=== PATIENT | female | born 1980 | race Caucasian/White ===

== ENCOUNTER 2018-01-22 07:30 | Inpatient (IN) | payer BC ==
--- NOTE | 2018-01-21 16:45 | Pre-op HX & Phy Repo 2 SIG ---
DATE OF ADMISSION: 01/22/2018 HISTORY OF PRESENT ILLNESS: The patient is a 37-year-old female in overall good health with a severely malfunctioning ileostomy. The patient developed ulcerative colitis in 2000 while 6 months . In January 2009 she underwent total colectomy with creation of an ileoanal J-pouch with temporary loop ileostomy. This was associated with transient urinary retention. The patient developed a presacral abscess, stricture at the anus, fistula, cuffitis, and required incision and drainage of a buttock abscess. In August 2009 she underwent surgery with resection of her failed J-pouch with abdominoperineal proctectomy and creation of a April ileostomy. There was no evidence of Crohn's disease. Since creation of the ileostomy the patient has had significant difficulty. She must change her appliance frequently. She has recurring episodes of leakage with very excoriated skin with every appliance change. She wakes every night to manage and deal with her ileostomy appliance. She has not had any improvement working with enterostomal therapy/WOCN and trying many different appliances. She is scheduled to undergo surgery to convert her malfunctioning conventional ileostomy to a Ramos continent intestinal reservoir continent ileostomy. PAST MEDICAL HISTORY: MEDICATIONS: Metoprolol 25 mg, Prozac 30 mg, Phenergan rarely p.r.n. nausea, and Imodium 2 times a week when she is very active. ALLERGIES: Penicillin and erythromycin cause hives. OPERATIONS: In addition to the above, she underwent cholecystectomy in January 2017 through an open right upper quadrant incision and in 2007 underwent breast augmentation. REVIEW OF SYSTEMS: She is 2, para 2. She must straight catheterize her bladder 1 to 2 times a day. Formerly with her urinary retention from surgery in 2008 she had to catheterize all day long, but she does void as well, but does need the 1 to 2 times a day straight catheterization to fully empty her bladder. She has had recurrent UTIs. PHYSICAL EXAMINATION: GENERAL: The patient is 5 feet 4 inches and 125 pounds. [place] and will be examined upon arrival and dictated separately. IMPRESSION: 1. Malfunctioning April ileostomy. 2. History of ulcerative colitis. 3. History of neurogenic bladder requiring self-catheterization 1-2x daily 4. Status post multiple abdominal operations. 4.1. Total colectomy with ileoanal J-pouch with ileostomy in January 2009 4.2. Resection of failed J-pouch with abdominoperineal proctectomy and April ileostomy in 2009. 4.3. Open cholecystectomy in January 2017. DISCUSSION: I have had a detailed discussion with the patient concerning the nature of her condition, the nature of the Ramos continent ileostomy surgery, indications, alternatives, options, and risks including temporary catheter gastrostomy. I have had a full discussion regarding the risks of surgery including the general risks of bleeding, infection, injury to adjacent structures or organs, deep vein thrombosis despite prophylaxis, anesthetic reactions, etc. I have discussed the specific risks of the Ramos continent intestinal reservoir procedure including the potential need for reoperation for slipped valve or because of fistula involving the pouch or valve or other issues involving the structure or function of the pouch or stoma. I will have another detailed discussion in person with the patient when [place]. Upon admission the patient will have placement of a dual- lumen PICC line, bowel prep, intravenous hydration throughout the day and overnight during the bowel prep, and intravenous antibiotics started the night before surgery and subcutaneous heparin in the morning before surgery. Brady Martinez M.D. DR: Michelle JOB#: [id number] CC: SHILOH
[~2018-01-22] VITALS: Ht 162.6 cm; Wt 56.0 kg
[2018-01-22 09:30] VITALS: BP 152/98
[2018-01-22] MEDS ORDERED: Heparin 2000 units/Ns 1000ml INJ PRN (09:30)
[2018-01-22] MEDS ORDERED: Lidocaine 1% Plain 30 ml INJ PRN (09:55)
[2018-01-22 10:10] LABS: BASOPHILS % (AUTO) 1.2 % (0.0-2.0); EOSINOPHILS % (AUTO) 0.6 % (0.0-3.0); HEMATOCRIT 40.3 % (37.0-47.0); HEMOGLOBIN 13.9 G/DL (12.0-16.0); LYMPHOCYTES % (AUTO) 24.6 % (20.0-45.0); MEAN CORPUSCULAR VOLUME 91 FL (80-99); MONOCYTES % (AUTO) 3.4 % (1.0-10.0); NEUTROPHILS % (AUTO) 70.1 % (45.0-75.0); PLATELET COUNT 326 K/UL (150-450); RED BLOOD COUNT 4.42 M/UL (4.20-5.40); RED CELL DISTRIBUTION WIDTH 10.8 % (11.6-14.8); WHITE BLOOD COUNT 6.8 K/UL (4.8-10.8)
[2018-01-22] MEDS ORDERED: PROZAC20 MG ORAL (10:28)
[2018-01-22] MEDS ORDERED: XANAX0.5 MG ORAL (10:28)
[2018-01-22] MEDS ORDERED: METOPROLOL SUCC25 MG ORAL (10:28)
[2018-01-22 10:49] LABS: ANION GAP 9 mmol/L (5-15); BLOOD UREA NITROGEN 14 mg/dL (7-18); CALCIUM 9.1 MG/DL (8.5-10.1); CARBON DIOXIDE 28 MMOL/L (21-32); CHLORIDE 103 MMOL/L (98-107); CREATININE 0.8 MG/DL (0.55-1.30); POTASSIUM 3.4 MMOL/L (3.5-5.1); SODIUM 140 MMOL/L (136-145)
[2018-01-22 10:54] LABS: ALANINE AMINOTRANSFERASE 24 U/L (12-78); ALBUMIN 4.3 G/DL (3.4-5.0); ALBUMIN/GLOBULIN RATIO 1.1 (1.0-2.7); ALKALINE PHOSPHATASE 65 U/L (46-116); ASPARTATE AMINO TRANSFERASE 18 U/L (15-37); BILIRUBIN,TOTAL 0.7 MG/DL (0.2-1.0)
[2018-01-22 10:59] LABS: APPEARANCE,URINE SLIGHTLY CLOUDY; BILIRUBIN, URINE NEGATIVE (NEGATIVE); GLUCOSE, URINE (UA) NEGATIVE (NEGATIVE); KETONES,URINE NEGATIVE (NEGATIVE); LEUKOCYTE ESTERASE ,URINE 2+ (NEGATIVE); NITRITE,URINE POSITIVE (NEGATIVE); PH,URINE 5 (4.5-8.0); PROTEIN,URINE 1+ (NEGATIVE); UROBILINOGEN,URINE NORMAL MG/DL (0.0-1.0)
[2018-01-22 11:04] LABS: COLOR,URINE YELLOW
--- NOTE | 2018-01-22 11:20 | Diagnostic Imaging Report ---
Indication: Cough Comparison: None A single view chest radiograph was obtained. Findings: Cardiomediastinal appearance is within normal limits for age. The lungs are clear. Pulmonary vascularity is appropriate. The diaphragmatic contour is smooth and costophrenic angles are sharp. No pleural effusions are identified. The bones are unremarkable. Impression: No acute findings
[2018-01-22] MEDS: Neomycin Sulfate 500mg Tab ORAL SCH ×3 (11:37→20:02)
[2018-01-22] MEDS: FLUoxetine 10mg cap ORAL SCH (11:37)
[2018-01-22] MEDS: Metoprolol Succinate XL 25mg tab ORAL SCH (11:38)
[2018-01-22 12:00] VITALS: BP 129/81
--- NOTE | 2018-01-22 13:52 | Diagnostic Imaging Report ---
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 The left upper extremity was prepped with alcohol. All elements of maximal sterile barrier technique were followed including usage of a cap, mask, sterile gown, sterile gloves, hand hygiene and a large sterile sheet. Sonographic evaluation of the upper extremity was performed demonstrating a patent and compressible basilic vein. Access was obtained under real-time ultrasound guidance (with utilization of sterile gel and sterile probe cover) and digital image was saved and archived. An .018 wire was introduced. Needle exchanged for a 5 Sami peel-away sheath. Measurements were obtained. A 5 Sami dual-lumen Power PICC line catheter was cut to 40 cm and introduced over the wire. Peel-away sheath and wire were removed.Catheter was secured to the skin using 2-0 Prolene suture. Both ports aspirate and flush easily. Fluoroscopic images show distal tip in the superior vena cava. Total fluoroscopic time 0.2 minutes. Impression: Successful placement of an upper extremity PICC line catheter
[2018-01-22] MEDS: D5 1/2NS w/KCl 40meq 1000ml 1,000 ML IV SCH (14:38)
--- NOTE | 2018-01-22 15:25 | General Progress Note ---
Progress Note Progress Note H&P dictated. Labs all satisfactory Hgb 13.9, albumin 4.3. K low 3.4 Urinalysis shows UTI - recurrent issue due to neurogenic bladder from prior colorectal surgery and she self-catheterizes her bladder several times daily as well as voiding. Will start IV antibiotics now Full discussion with patient and family regarding the surgery and all questions answered. PIC line in place. New stoma site chosen for BCIR surgery in AM Brady Martinez MD Jan 22, 2018 15:25
[2018-01-22 16:00] VITALS: BP 124/88
--- NOTE | 2018-01-22 16:15 | Pre-op HX & Phy Repo 2 SIG ---
DATE OF ADMISSION: 01/22/2018 The [place] now [place]. Please see previously dictated history. PHYSICAL EXAMINATION: GENERAL: The patient is well developed and well nourished, 5 feet 4 inches, approximately 125 pounds. HEENT: Within normal limits. LUNGS: Clear. HEART: Regular rhythm. BREASTS: Without masses. S/P augmentation mammoplasty ABDOMEN: Soft. There is a long midline incision from midepigastrium to pubis and a short right subcostal incision. The stoma of her conventional April ileostomy is high in the right lower quadrant. There is no evidence of abdominal wall hernia. The stoma is slightly retracted and tilted. PELVIC: Negative per primary care physician recently. RECTAL: Status post proctectomy. EXTREMITIES: Without edema. Pulses 3+ femoral to pedal bilaterally. No edema NEUROLOGIC: Physiologic. IMPRESSION: 1. Malfunctioning April ileostomy. 2. History of ulcerative colitis. 3. History of neurogenic bladder requiring self catheterization several times daily following colorectal surgery. 4. Status post multiple abdominal operations. 4.1. Total colectomy with ileoanal J-pouch with ileostomy in January 2009 4.2. Resection of failed J-pouch with abdominoperineal proctectomy and creation of April ileostomy in 2009. 4.3. Open cholecystectomy in January 2007. 5. History of recent small bowel obstruction managed non-operatively. DISCUSSION: I have had another detailed discussion with the patient regarding the nature of the condition, the nature of the Ramos continent intestinal reservoir surgery including indications, alternatives, options, and risks. I have discussed the general risks of surgery as well as the specific risks of the Ramos pouch procedure including the potential need for reoperation. All questions have been answered. The patient has had placement of a dual lumen PICC line. Her laboratory studies are satisfactory with only slightly low potassium of 3.4, but no anemia and normal albumin. Her urinalysis shows an obvious urinary tract infection and intravenous Levaquin will be started this afternoon instead of waiting until immediately preoperatively. She will also receive intravenous Flagyl started tonight and subcutaneous heparin in the morning. Brady Martinez M.D. DR: LUIS JOB#: [id number] CC: SHILOH
[2018-01-22] MEDS ORDERED: D5 1/2NS w/KCl 20mEq 1,000 ML IV SCH (18:00)
[2018-01-22 20:00] VITALS: BP 139/94
[2018-01-22] MEDS: Zolpidem 5mg tab ORAL PRN (20:01)
[2018-01-22] MEDS: Dyna-Hex 2% Top Sol 2oz TOPIC SCH (20:02)
[2018-01-23] VITALS (17 sets, daily range): BP systolic 95–124; BP diastolic 52–84
[2018-01-23] MEDS: D5 1/2NS w/KCl 40meq 1000ml 1,000 ML IV SCH (02:01)
[2018-01-23] MEDS ORDERED: Heparin 5000 units/ml inj SUBQ SCH (05:30)
[2018-01-23] MEDS: Metoprolol Succinate XL 25mg tab ORAL SCH (06:33)
[2018-01-23] MEDS ORDERED: Bacitracin 50000 Units Vial ONE (06:39)
[2018-01-23] MEDS ORDERED: NeoSporin Gu Irrig 1ml Amp IRRIG ONE (06:39)
[2018-01-23] MEDS ORDERED: Propofol 200mg/20ml IV ONE (07:01)
[2018-01-23] MEDS ORDERED: Midazolam 2mg/2ml Inj ONE (07:01)
[2018-01-23] MEDS ORDERED: Lidocaine 1% MPF 10mg/ml 5ml ONE (07:01)
[2018-01-23] MEDS ORDERED: Sodium Chloride 10ml vial INJ ONE ×2 (07:01→08:46)
[2018-01-23] MEDS ORDERED: fentaNYL 100 mcg/2 mL IV ONE (07:01)
[2018-01-23] MEDS ORDERED: Succinylcholine 20mg/ml 10ml vial ONE (07:17)
[2018-01-23] MEDS ORDERED: Zemuron 50mg/5ml Inj IV ONE ×2 (07:17→09:46)
--- NOTE | 2018-01-23 07:19 | Pre-Procedure Note/Attestation ---
Pre-Procedure Note/Attestation Complete Prior to Procedure Planned Procedure: not applicable Procedure Narrative: Ramos Continent Intestinal [place], gastrostomy Indications for Procedure Pre-Operative Diagnosis: malfunctioning ileostomy Attestation I attest that I discussed the nature of the procedure; its benefits; risks and complications; and alternatives (and the risks and benefits of such alternatives ), prior to the procedure, with the patient (or the patient's legal contracts representative). I attest that, if there was a reasonable possibility of needing a blood transfusion, the patient (or the patient's legal contracts representative) was given the [facility] standardized written summary, pursuant to the [place] Blood Safety Act ([place] Health and Safety Code # 1645, as amended). I attest that I re-evaluated the patient just prior to the surgery and that there has been no change in the patient's H&P, except as documented below: none Brady Martinez MD Jan 23, 2018 07:19
[2018-01-23] MEDS ORDERED: Phenylephrine 10mg/ml Vial ONE (08:24)
--- NOTE | 2018-01-23 08:35 | Anethesia Preoperative Eval ---
Anesthesia Pre-op PMH/ROS General Date of Evaluation: Jan 22, 2018 Time of Evaluation: 14:20 Anesthesiologist: Miladis ASA Score: ASA 2 Mallampati Score Class I : Soft palate, uvula, fauces, pillars visible Class II: Soft palate, uvula, fauces visible Class III: Soft palate, base of uvula visible Class IV: Only hard plate visible Mallampati Classification: Class II Surgeon: Michelle Diagnosis: Malfunctionig ileostomy Surgical Procedure: Ex laparotomy creation of continent pouch Anesthesia History: PONV Family History: no anesthesia problems Allergies: Coded Allergies: ERYTHROMYCIN BASE (Verified Allergy, Intermediate, rash, 01/22/18) PENICILLINS (Verified Allergy, Intermediate, rash, hi9ves, 01/22/18) Patient NPO?: Yes NPO Date: Jan 23, 2018 NPO Time: 0000 Past Medical History Cardiovascular: Reports: HTN Pulmonary: Denies: asthma, COPD, HIMA, other Gastrointestinal/Genitourinary: Reports: GERD, other - h/o UC s/p total colectomy; Denies: CRI, ESRD Neurologic/Psychiatric: Reports: depression/anxiety; Denies: dementia, CVA, TIA, other Endocrine: Denies: DM, hypothyroidism, steroids, other HEENT: Denies: cataract (L), cataract (R), glaucoma, SAV[place]ON[place] (L), SAV[place]ONGA (R), other Hematology/Immune: Denies: anemia, DVT, bleeding disorder, other Musculoskeletal/Integumentary: Denies: OA, RA, DJD, DDD, edema, other PMH Narrative: as above PSxH Narrative: multiple intraabdominal Sx see H&P, breasts augmentation Anesthesia Pre-op Phys. Exam Physician Exam Last Vital Signs Date Time Temp Pulse Resp B/P (MAP) Pulse Ox O2 Delivery O2 Flow Rate FiO2 01/23/18 06:33 92 119/80 01/23/18 04:00 98.2 19 98 01/22/18 21:00 Room Air Constitutional: NAD Neurologic: CN 2-12 intact Cardiovascular: RRR, no M/R/G Respiratory: CTA Gastrointestinal: S/NT/ND Airway Exam Mallampati Score: Class II MO: full Neck: flexible ROM: full Teeth: intact Dentures: no upper, no lower Anesthesia Pre-op A/P Labs Hematology Test 01/22/18 10:00 White Blood Count 6.8 K/UL (4.8-10.8) Red Blood Count 4.42 M/UL (4.20-5.40) Hemoglobin 13.9 G/DL (12.0-16.0) Hematocrit 40.3 % (37.0-47.0) Mean Corpuscular Volume 91 FL (80-99) Mean Corpuscular Hemoglobin 31.4 PG (27.0-31.0) H Mean Corpuscular Hemoglobin Concent 34.4 G/DL (32.0-36.0) Red Cell Distribution Width 10.8 % (11.6-14.8) L Platelet Count 326 K/UL (150-450) Mean Platelet Volume 5.4 FL (6.5-10.1) L Neutrophils (%) (Auto) 70.1 % (45.0-75.0) Lymphocytes (%) (Auto) 24.6 % (20.0-45.0) Monocytes (%) (Auto) 3.4 % (1.0-10.0) Eosinophils (%) (Auto) 0.6 % (0.0-3.0) Basophils (%) (Auto) 1.2 % (0.0-2.0) Coagulation Test 01/22/18 10:00 Prothrombin Time 10.3 SEC (9.30-11.50) Prothromb Time International Ratio 1.0 (0.9-1.1) Activated Partial Thromboplast Time 28 SEC (23-33) Chemistry Test 01/22/18 10:00 Sodium Level 140 MMOL/L (136-145) Potassium Level 3.4 MMOL/L (3.5-5.1) L Chloride Level 103 MMOL/L (98-107) Carbon Dioxide Level 28 MMOL/L (21-32) Anion Gap 9 mmol/L (5-15) Blood Urea Nitrogen 14 mg/dL (7-18) Creatinine 0.8 MG/DL (0.55-1.30) Estimat Glomerular Filtration Rate > 60 mL/min (>60) Glucose Level 84 MG/DL (74-106) Calcium Level 9.1 MG/DL (8.5-10.1) Total Bilirubin 0.7 MG/DL (0.2-1.0) Aspartate Amino Transf (AST/SGOT) 18 U/L (15-37) Alanine Aminotransferase (ALT/SGPT) 24 U/L (12-78) Alkaline Phosphatase 65 U/L (46-116) Total Protein 8.1 G/DL (6.4-8.2) Albumin 4.3 G/DL (3.4-5.0) Globulin 3.8 g/dL Albumin/Globulin Ratio 1.1 (1.0-2.7) Urine Test Test 01/22/18 10:40 Urine HCG, Qualitative Negative (NEGATIVE) Studies Pre-op Studies: EKG - NSR Risk Assessment & Plan Assessment: ASA 2 Plan: GA with ETT PONV prevention Status Change Before Surgery: No Pre-Antibiotics Drug: as scheduled Jaiden Redding MD Jan 23, 2018 08:35
[2018-01-23] MEDS ORDERED: LR 1000ml 1,000 ML IVLG SCH (08:36)
[2018-01-23] MEDS ORDERED: Morphine Sulfate 10mg/ml Inj ONE (08:42)
[2018-01-23] MEDS ORDERED: DiphenhydrAMINE 50mg/ml Inj IVP PRN ×2 (08:45→11:45)
[2018-01-23] MEDS ORDERED: Meperidine 50mg/ml Inj(FOR RIGORS ONLY) IV PRN (08:45)
[2018-01-23] MEDS ORDERED: Acetaminophen (Non formulary) 100 ML IV ONE (08:45)
[2018-01-23] MEDS ORDERED: fentaNYL 100 mcg/2 mL IV PRN (08:45)
[2018-01-23] MEDS ORDERED: Metoclopramide 10mg/2ml Inj IVP PRN (08:45)
[2018-01-23] MEDS ORDERED: Midazolam 2mg/2ml Inj IVP PRN (08:45)
[2018-01-23] MEDS ORDERED: Ketorolac 30mg Inj IV PRN (08:45)
[2018-01-23] MEDS ORDERED: FLUoxetine 10mg cap ORAL SCH (09:00)
[2018-01-23] MEDS: FLUoxetine 10mg cap ORAL SCH (09:00)
[2018-01-23] MEDS ORDERED: Ketorolac 30mg Inj ONE (09:55)
[2018-01-23] MEDS ORDERED: Glycopyrrolate 0.2mg/ml 1ml Vial ONE (09:56)
[2018-01-23] MEDS ORDERED: Neostigmine 1mg/ml 10ml Inj ONE (09:56)
--- NOTE | 2018-01-23 11:44 | Immediate Post-Op Evaluation ---
Immediate Post-Op Evalulation Immediate Post-Op Evalulation Procedure: Exploratory laparotomy, creation of continent pouch Date of Evaluation: Jan 23, 2018 Time of Evaluation: 11:43 IV Fluids: 1400 Blood Products: aLBUMIN 250 Estimated Blood Loss: 100 Urinary Output: 200 Blood Pressure Systolic: 105 Blood Pressure Diastolic: 74 Pulse Rate: 98 Respiratory Rate: 20 O2 Sat by Pulse Oximetry: 99 Temperature (Fahrenheit): 98.9 Pain Score (1-10): 1 Nausea: No Vomiting: No Complications none Patient Status: reacts, patent, extubated, none Hydration Status: adequate Jaiden Redding MD Jan 23, 2018 11:44
[2018-01-23] MEDS ORDERED: Rate Change PCA 1 Each MISC PRN (11:45)
[2018-01-23] MEDS ORDERED: LORazepam 1mg tab SL PRN (11:45)
[2018-01-23] MEDS ORDERED: PCA Education Pamphlet MISC ONE (11:45)
[2018-01-23] MEDS ORDERED: Naloxone 0.4mg/ml Inj IVP PRN (11:45)
[2018-01-23] MEDS ORDERED: Acetaminophen 650mg/20.3ml GT PRN (11:45)
--- NOTE | 2018-01-23 11:45 | Brief Operative Note ---
Immediate Post Operative Note Operative Note Pre-op Diagnosis: malfunctioning ileostomy Procedure: Ramos Continent Intestinal [place]; gastrostomy Post-op Diagnosis: same Post-op Diagnosis: same as pre-op Findings: consistent w/pre-op dx studies Surgeon: deanne Post Form Remover: leora Anesthesiologist: claudette Anesthesia: general Specimen: yes - stoma, omentum, bowel segment and trimmings Complications: none Condition: stable Fluids: see anesthesia record Estimated Blood Loss: volume - 50ml Drains: other - 28foley BCIR, 18foley gastrostomy, 0.25"darius drain Implant(s) used?: No Brady Martinez MD Jan 23, 2018 11:45
[2018-01-23] MEDS ORDERED: PCA HYDROmorphone 1mg/ml 30 ML IV PRN (11:57)
[2018-01-23] MEDS: D5 1/4NS w/KCl 20mEq 1,000 ML IV SCH ×2 (14:23→23:20)
[2018-01-23] MEDS ORDERED: NS 500ML ONE (15:40)
--- NOTE | 2018-01-23 16:11 | General Progress Note ---
Progress Note Progress Note AVSS, awake and alert, comfortable with dilaudid BELT CUTTER. Dressing changed - small amount serous drainage via darius Urine clear Imp. Stable post-op Brady Martinez MD Jan 23, 2018 16:11
--- NOTE | 2018-01-23 18:15 | Operative Note - Dictated ---
DATE OF OPERATION: 01/23/2018 SURGEON: Brady Martinez M.D. MAIL HANDLER EQUIPMENT OPERATOR SURGEON: Jarvis Duong M.D. ANESTHESIOLOGIST: Jaiden Redding M.D. TYPE OF ANESTHESIA: General endotracheal. PREOPERATIVE DIAGNOSES: 1. Malfunctioning April ileostomy. 2. History of ulcerative colitis. 3. Recent episode of small bowel obstruction. 4. Status post multiple abdominal operations. 4.1. Total colectomy with ileoanal J-pouch with ileostomy in January 2009 4.2. Resection of failed J-pouch with abdominoperineal proctectomy and creation of end April ileostomy in 2009. 4.3. Open cholecystectomy in January 2017. POSTOPERATIVE DIAGNOSES: 1. Malfunctioning April ileostomy. 2. History of ulcerative colitis. 3. Recent episode of small bowel obstruction. 4. Status post multiple abdominal operations. 4.1. Total colectomy with ileoanal J-pouch with ileostomy in January 2009 4.2. Resection of failed J-pouch with abdominoperineal proctectomy and creation of end April ileostomy in 2009. 4.3. Open cholecystectomy in January 2017. OPERATION PERFORMED: Ramos continent intestinal reservoir and catheter gastrostomy. DESCRIPTION OF PROCEDURE: The patient was taken to the operating room and under general endotracheal anesthesia with sequential compression device stockings and Terry catheter in place and having received intravenous antibiotics and subcutaneous heparin, the patient was prepped and draped in the usual fashion. The ileostomy stoma which was high in the right lower quadrant and retracted and tilted was initially covered with a Tegaderm. Previous midline incision was reopened from midepigastrium to pubis. There were no adhesions to the undersurface of the abdominal wall except near the stoma. There were diffuse adhesions in the central abdomen and lower abdomen and pelvis because omentum had been placed into the presacral space at her prior surgery and there were multiple areas of kinking of small bowel loops. The small bowel was inspected from ligament of Treitz to the ileostomy and there was an abundance of small bowel that was all completely normal. There was no evidence of Crohn's disease. The ileostomy in the right lower quadrant was dismantled with a transversely oriented elliptical incision bringing the stoma into the abdominal cavity. The fascia was closed with interrupted [id number] 0 PDS in vertical orientation. A Betadine soaked Ray-Belkis was placed in the subcutaneous tissues. Now all the adhesions were taken down tracing the small bowel retrograde from the ileostomy to the normal jejunum, which was free of all adhesions. There was a loop of bowel densely adherent to the dome of the uterus and another densely adherent to the right pelvis. The omentum was transected leaving a small distal remnant, which remained perfused throughout the procedure. The omentum was elevated and partially resected between clamps ligating with #0 silk. Once all the adhesions were taken down, it was apparent that there was one area with a serosal disruption and this was proximal to the level of the loops needed to create the pouch and this was subsequently resected a 3-inch segment. The old ileostomy was excised dividing the mesentery, ligating with 3-0 silk, and dividing the bowel with the linear stapler 30 imbricated with 3-0 silk. 12 cm proximal was marked for the collar segment. 15 cm proximal was marked for the pouch and then the two adjacent 15 cm loops of bowel were placed side by side and with appropriately located enterotomies in each loop, I then used the JOHN 75, with several applications creating the ileal reservoir. The staple line was everted and the external aspect completely inspected. There were no defects. There was no active bleeding from the staple line. A 3-0 silk was placed at the apex and then the junction of the afferent bowel and the pouch was marked with a 3-0 chromic suture. 12 cm proximal was marked for the valve segment and a 2 fingerbreadth mesenteric hiatus created here ligating vessels with 3-0 silk. The abdominal wall thickness was approximately 2 cm. An appropriate length access segment was measured and marked and the mesentery divided ligating vessels with 3-0 silk preserving two good vessels to the access segment. The bowel was divided proximally with a TA-30 and distally left open to become the new stoma. Now attention was directed towards creation of the nipple valve. The peritoneum was stripped on each side of the valve segment mesentery and the serosa scarified with cautery. With gradual intussusception, a 5.5 cm long nipple valve was created. Two applications of the PI 55 stapling device with 4.8 mm rivera was used 90 degrees away from the mesentery on each side. Then 3-0 silk sutures were taken between each side of the access segment near its mesentery and the pouch and a third application of the PI 55 stapling device was utilized to staple the valve to the anterior pouch wall. Additional 3-0 silk sutures were placed between the access segment and the pouch. Now the proximal bowel was prepared to restore intestinal continuity to the pouch. The 3-inch segment was resected using the linear stapler 30, proximally imbricated with 3-0 silk, and the segment resected ligating the mesenteric vessels with 2-0 silk. The stapled end of the bowel was imbricated with 3-0 silk and placed [id number] with the pouch enterotomy with a very short blind end. A two-layer anastomosis was created with an outer layer of 3-0 silk then the proximal bowel opened and a full-thickness continuous 2-0 chromic locking suture placed circumferentially followed by an anterior layer of 3-0 silk. The end of the collar was brought through the mesenteric hiatus between the access and valve segments and sutured to itself to the access segment to the pouch with interrupted 3-0 silk sutures. Patency and proper orientation was maintained and tested with the Villar suction. Now a 28-Chinese Terry was placed readily through the stoma into the apex of the pouch and the afferent bowel manually occluded. The pouch was distended with 120 mL of saline. There was no extravasation. The catheter was removed and there was no incontinence. The catheter was reintroduced and the pouch decompressed. The field of dissection was now inspected and hemostasis was secure. The pelvis was inspected. The uterus, tubes, and ovaries were within normal limits. The bladder and ureters were protected during the procedure. There was a space between the uterus and the sacral promontory and I was concerned that bowel loops could become entrapped there. I could not suture the uterus to the presacral fascia without tension. I used several pieces of Surgicel placed into the pelvis both for hemostasis and to occlude this space. Now the pouch lay nicely across the dome of the uterus. Through a previously marked incision low in the right lower quadrant, a 2.5 cm narrow ellipse of skin was excised in transverse orientation and with a cruciate incision in the fascia, a 2 fingerbreadth abdominal wall hiatus was created. The posterior pouch was sutured to the peritoneum with interrupted 3-0 Vicryl sutures and the access segment with its mesentery brought through the abdominal wall with the pouch lying snug against the abdominal wall. The stoma was primarily matured excising redundancy and maturing the stoma with continuous 2-0 chromic locking suture starting at the 3 and 9 o'clock positions. One additional [id number] 2-0 chromic was needed at the 12 o'clock position for hemostasis. The catheter was appropriately positioned in the apex of the pouch and marked at the level of the stoma with a 3-0 silk and then sutured to the skin with two sutures of 2-0 silk. The catheter was flushed and connected to a gravity drainage bag. Through a separate stab incision inferior to the stoma, a quarter-inch [place] drain was placed into the pelvis and sutured to the skin with a 3-0 silk suture. In view of all the dissection and the need for prolonged decompression, a catheter gastrostomy was indicated. Through a stab incision in the left upper quadrant, an 18-Chinese Terry catheter was brought through the abdominal wall and placed into the stomach, greater curve, fundus between two concentric pursestrings of 2-0 chromic with the balloon inflated and positioned in the fundus, and the stomach sutured to the anterior abdominal wall with multiple interrupted 3-0 silk sutures. The catheter was sutured to the skin with 2-0 silk and it was then flushed and connected to a gravity drainage bag. After ascertaining that hemostasis was secure the midline incision was closed in one layer with continuous looped 0-PDS. Throughout the procedure, antibiotic soaked laps had been used to protect the abdominal wall and the [place] retractor was used and there were frequent changes of gloves. The midline incision was closed with rivera and the prior ileostomy site closed transversely with interrupted vertical mattress 2-0 nylon sutures. Dry sterile dressings were applied. Final sponge and needle counts were correct. The patient tolerated the procedure well and left the operating room in good condition. Brady Martinez M.D. DR: LUIS JOB#: [id number] CC: SHILOH
[2018-01-23] MEDS ORDERED: PCA shift volume MISC SCH (19:00)
[2018-01-23] MEDS: Dyna-Hex 2% Top Sol 2oz TOPIC SCH (19:57)
[2018-01-23] MEDS: Zolpidem 5mg tab ORAL PRN (21:01)
[2018-01-24] VITALS: BP 125/60
[2018-01-24 04:00] VITALS: BP 100/64
[2018-01-24 06:18] LABS: BASOPHILS % (AUTO) 0.7 % (0.0-2.0); EOSINOPHILS % (AUTO) 0.3 % (0.0-3.0); HEMATOCRIT 30.7 % (37.0-47.0); HEMOGLOBIN 10.1 G/DL (12.0-16.0); LYMPHOCYTES % (AUTO) 10.7 % (20.0-45.0); MEAN CORPUSCULAR VOLUME 95 FL (80-99); MONOCYTES % (AUTO) 5.8 % (1.0-10.0); NEUTROPHILS % (AUTO) 82.6 % (45.0-75.0); PLATELET COUNT 132 K/UL (150-450); RED BLOOD COUNT 3.24 M/UL (4.20-5.40); WHITE BLOOD COUNT 6.1 K/UL (4.8-10.8)
[2018-01-24 07:22] LABS: ANION GAP 5 mmol/L (5-15); BLOOD UREA NITROGEN 2 mg/dL (7-18); CALCIUM 6.9 MG/DL (8.5-10.1); CARBON DIOXIDE 25 MMOL/L (21-32); CHLORIDE 100 MMOL/L (98-107); CREATININE 0.7 MG/DL (0.55-1.30); SODIUM 127 MMOL/L (136-145)
[2018-01-24 08:00] VITALS: BP 129/89
[2018-01-24] MEDS ORDERED: PCA HYDROmorphone 1mg/ml 30 ML IV PRN (08:00)
[2018-01-24] MEDS ORDERED: Naloxone 0.4mg/ml Inj IVP PRN (08:00)
[2018-01-24] MEDS ORDERED: Ketorolac 30mg Inj IV PRN (08:00)
[2018-01-24] MEDS ORDERED: Rate Change PCA 1 Each MISC PRN (08:00)
--- NOTE | 2018-01-24 08:09 | General Progress Note ---
Progress Note Progress Note AVSS c/o abdominal distention, pain despite dilaudid MANAGER ASSET Chest clear but decreased expansion Cor - reg rhythm Abdomen distended, soft, incision clean, stoma pink, darius serosang. mod. Urine 1800 Gastrostomy 80 BCIR ileo 55 serosang WBC 6100 Hgb down 10.1 Platelets 132,000 BMP - pending Urine C&S - gm neg bacillus Imp. Ileus Atelectasis UTI present on admission pre-op Plan: NPO start TPN due to extensive lysis of adhesions in surgery add Toradol IV 15mg q6h prn f/u labs mobilize continue Terry - pelvic dissection and history of neurogenic bladder Brady Martinez MD Jan 24, 2018 08:09
[2018-01-24 08:18] LABS: ANION GAP 5 mmol/L (5-15); BLOOD UREA NITROGEN 3 mg/dL (7-18); CALCIUM 8.2 MG/DL (8.5-10.1); CARBON DIOXIDE 29 MMOL/L (21-32); CHLORIDE 106 MMOL/L (98-107); CREATININE 0.7 MG/DL (0.55-1.30); POTASSIUM 4.3 MMOL/L (3.5-5.1); SODIUM 140 MMOL/L (136-145)
[2018-01-24] MEDS ORDERED: DiphenhydrAMINE 50mg/ml Inj IVP PRN (09:00)
[2018-01-24] MEDS: FLUoxetine 10mg cap ORAL SCH (09:06)
[2018-01-24] MEDS: Ketorolac 30mg Inj IV PRN ×3 (09:07→22:16)
[2018-01-24] MEDS: Metoprolol Succinate XL 25mg tab ORAL SCH (09:07)
--- NOTE | 2018-01-24 09:12 | 48 Hour Post Anesthesia Eval ---
Post Anesthesia Evaluation Procedure: Exploratory laparotomy, creation of continent pouch Date of Evaluation: Jan 24, 2018 Time of Evaluation: 09:11 Blood Pressure Systolic: 116 0: 74 Pulse Rate: 72 Respiratory Rate: 20 Temperature (Fahrenheit): 97.6 O2 Sat by Pulse Oximetry: 98 Airway: patent Nausea: No Vomiting: No Pain Intensity: 3 Hydration Status: adequate Cardiopulmonary Status: stable Mental Status/LOC: patient returned to baseline Follow-up Care/Observations: n/a Post-Anesthesia Complications: none Follow-up care needed: N/A Jaiden Redding MD Jan 24, 2018 09:12
[2018-01-24] MEDS: D5 1/4NS w/KCl 20mEq 1,000 ML IV SCH ×3 (09:23→20:00)
[2018-01-24 12:00] VITALS: BP 102/68
[2018-01-24 16:00] VITALS: BP 143/99
[2018-01-24] MEDS: PCA shift volume MISC SCH (19:21)
[2018-01-24 20:00] VITALS: BP 120/82
[2018-01-24] MEDS: Dyna-Hex 2% Top Sol 2oz TOPIC SCH (20:00)
[2018-01-24] MEDS ORDERED: Dextrose 10% 1,000 ML IV PRN (20:00)
[2018-01-24] MEDS: TPN IV SCH (20:03)
[2018-01-24] MEDS: FAT EMULSION 20% IV SCH (20:03)
[2018-01-24] MEDS ORDERED: Fat Emulsion Iv 20% 250 ML IV SCH (21:00)
[2018-01-24] MEDS: LORazepam 1mg tab SL PRN (22:57)
[2018-01-24] MEDS: NovoLOG Insulin Flexpen SUBQ SCH (23:51)
[2018-01-25] VITALS: BP 136/92
[2018-01-25 04:00] VITALS: BP 116/80
[2018-01-25] MEDS: Ketorolac 30mg Inj IV PRN ×4 (04:15→22:12)
[2018-01-25 05:14] LABS: BASOPHILS % (AUTO) 1.1 % (0.0-2.0); HEMATOCRIT 36.1 % (37.0-47.0); HEMOGLOBIN 12.4 G/DL (12.0-16.0); LYMPHOCYTES % (AUTO) 14.5 % (20.0-45.0); MEAN CORPUSCULAR VOLUME 91 FL (80-99); MONOCYTES % (AUTO) 6.8 % (1.0-10.0); NEUTROPHILS % (AUTO) 76.7 % (45.0-75.0); PLATELET COUNT 155 K/UL (150-450); RED BLOOD COUNT 3.97 M/UL (4.20-5.40); RED CELL DISTRIBUTION WIDTH 10.7 % (11.6-14.8); WHITE BLOOD COUNT 6.8 K/UL (4.8-10.8)
[2018-01-25 05:33] LABS: ALANINE AMINOTRANSFERASE 33 U/L (12-78); ALBUMIN 2.8 G/DL (3.4-5.0); ALBUMIN/GLOBULIN RATIO 0.9 (1.0-2.7); ALKALINE PHOSPHATASE 48 U/L (46-116); ANION GAP 4 mmol/L (5-15); ASPARTATE AMINO TRANSFERASE 26 U/L (15-37); BILIRUBIN,TOTAL 0.2 MG/DL (0.2-1.0); BLOOD UREA NITROGEN 4 mg/dL (7-18); CALCIUM 7.9 MG/DL (8.5-10.1); CARBON DIOXIDE 30 MMOL/L (21-32); CHLORIDE 106 MMOL/L (98-107); CREATININE 0.6 MG/DL (0.55-1.30); POTASSIUM 3.8 MMOL/L (3.5-5.1); SODIUM 139 MMOL/L (136-145)
[2018-01-25] MEDS: NovoLOG Insulin Flexpen SUBQ SCH ×4 (05:58→23:58)
[2018-01-25 06:14] LABS: % IRON SATURATION 5 % (15-50); IRON 12 ug/dL (50-175); TOTAL IRON BINDING CAPACITY 234 ug/dL (250-450)
[2018-01-25] MEDS: PCA shift volume MISC SCH ×2 (07:10→19:15)
[2018-01-25 08:04] VITALS: BP 127/92
[2018-01-25] MEDS: FLUoxetine 10mg cap ORAL SCH (08:53)
[2018-01-25] MEDS: Metoprolol Succinate XL 25mg tab ORAL SCH (08:53)
[2018-01-25] MEDS ORDERED: Metoclopramide 10mg/2ml Inj IVP SCH (09:45)
[2018-01-25] MEDS ORDERED: PCA Morphine 1mg/ml 30 ML IV PRN (10:00)
[2018-01-25 12:00] VITALS: BP 135/87
[2018-01-25] MEDS ORDERED: NS Irrig 1000ml ONE (13:47)
--- NOTE | 2018-01-25 14:29 | General Progress Note ---
Progress Note Progress Note Afebrile Tachycardiak 97-112 C/O nausea despite Zofran and Reglan. Fair IS effort c/o bloating/gas Abdomen mildly distended, soft, incisions clean, stoma pink, darius serous Urine 2300 Gastrostomy 310 bilious BCIR ileo 80 bilious WBC 6800 Hgb 12.4 Platelets 155,000 BMP-wnl albumin 2.8 Iron 12 B12 wnl Folate 14.9 (very low normal range) Imp. Ileus Atelectasis Nausea Plan: d/c Reglan and start IV compazine prn nausea d/c continuous basal infusion of SENIOR STORAGE ADMINISTRATOR - may need to change to morphine TPN Venofer folic acid po daily Brady Martinez MD Jan 25, 2018 14:29
[2018-01-25] MEDS ORDERED: PCA HYDROmorphone 1mg/ml 30 ML IV PRN ×2 (15:00)
[2018-01-25] MEDS ORDERED: Rate Change PCA 1 Each MISC PRN (15:00)
[2018-01-25] MEDS ORDERED: Naloxone 0.4mg/ml Inj IVP PRN (15:00)
[2018-01-25 16:00] VITALS: BP 156/99
[2018-01-25] MEDS ORDERED: Metoclopramide 10mg/2ml Inj IVP PRN (16:00)
--- NOTE | 2018-01-25 16:08 | Cardiology Report ---
APPROVED REPORT EKG Measurement Heart [id number] FL [id number] Normal sinus rhythm Rightward axis Borderline ECG
[2018-01-25 16:25] LABS: APPEARANCE,URINE CLEAR; BILIRUBIN, URINE NEGATIVE (NEGATIVE); COLOR,URINE PALE YELLOW; GLUCOSE, URINE (UA) 3+ (NEGATIVE); KETONES,URINE NEGATIVE (NEGATIVE); LEUKOCYTE ESTERASE ,URINE 2+ (NEGATIVE); NITRITE,URINE NEGATIVE (NEGATIVE); PH,URINE 5 (4.5-8.0); PROTEIN,URINE NEGATIVE (NEGATIVE); UROBILINOGEN,URINE NORMAL MG/DL (0.0-1.0)
[2018-01-25] MEDS ORDERED: PCA Morphine 30mg/30ml IV PRN (17:00)
[2018-01-25 20:00] VITALS: BP 126/87
[2018-01-25] MEDS: D5 1/4NS w/KCl 20mEq 1,000 ML IV SCH (20:00)
[2018-01-25] MEDS: Dyna-Hex 2% Top Sol 2oz TOPIC SCH (20:00)
[2018-01-25] MEDS: TPN IV SCH (20:23)
[2018-01-25] MEDS: FAT EMULSION 20% IV SCH (20:23)
[2018-01-25] MEDS: Iron Sucrose 100 MG in NS 55 ML IV SCH (20:36)
[2018-01-26] VITALS: BP 151/98
[2018-01-26 04:00] VITALS: BP 145/95
[2018-01-26 05:07] LABS: BASOPHILS % (AUTO) 1.1 % (0.0-2.0); EOSINOPHILS % (AUTO) 1.4 % (0.0-3.0); HEMATOCRIT 34.9 % (37.0-47.0); HEMOGLOBIN 11.9 G/DL (12.0-16.0); LYMPHOCYTES % (AUTO) 11.2 % (20.0-45.0); MEAN CORPUSCULAR VOLUME 90 FL (80-99); MONOCYTES % (AUTO) 4.7 % (1.0-10.0); NEUTROPHILS % (AUTO) 81.6 % (45.0-75.0); PLATELET COUNT 213 K/UL (150-450); RED BLOOD COUNT 3.88 M/UL (4.20-5.40); RED CELL DISTRIBUTION WIDTH 10.6 % (11.6-14.8); WHITE BLOOD COUNT 7.9 K/UL (4.8-10.8)
[2018-01-26 05:32] LABS: ANION GAP 7 mmol/L (5-15); BLOOD UREA NITROGEN 6 mg/dL (7-18); CALCIUM 8.3 MG/DL (8.5-10.1); CARBON DIOXIDE 32 MMOL/L (21-32); CHLORIDE 104 MMOL/L (98-107); CREATININE 0.6 MG/DL (0.55-1.30); POTASSIUM 3.4 MMOL/L (3.5-5.1); SODIUM 142 MMOL/L (136-145)
[2018-01-26] MEDS: Ketorolac 30mg Inj IV PRN ×3 (06:03→19:31)
[2018-01-26] MEDS: NovoLOG Insulin Flexpen SUBQ SCH ×4 (06:20→23:54)
[2018-01-26] MEDS: PCA shift volume MISC SCH ×2 (07:19→19:03)
[2018-01-26 08:00] VITALS: BP 148/100
[2018-01-26] MEDS: Metoprolol Succinate XL 25mg tab ORAL SCH (08:56)
[2018-01-26] MEDS: FLUoxetine 10mg cap ORAL SCH (08:57)
[2018-01-26] MEDS ORDERED: Naloxone 0.4mg/ml Inj IVP PRN (09:29)
[2018-01-26] MEDS ORDERED: Rate Change PCA 1 Each MISC PRN (09:30)
--- NOTE | 2018-01-26 09:47 | General Progress Note ---
Progress Note Progress Note AVSS with persistent mild tachycardia. Unable to cough productively - with IS effort mild congestion. Nausea is improved Abdomen mildly distended, soft, incisions clean, stoma pink, darius small amount serous Urine 3150 Gastrostomy 390 BCIR ileo 100 WBC 7900 Hgb 11.9 Platelets 213,000 K 3.4 U/A improved - repeat urine C&S no growth Imp. Atelectasis Ileus Plan; Resp. treatments npo, tpn, increase K in Iv fluids mobilize Brady Martinez MD Jan 26, 2018 09:47
[2018-01-26] MEDS: Potassium Chloride 40 MEQ in D5 1/4NS 1000ml 1,000 ML IV SCH (11:52)
[2018-01-26 12:00] VITALS: BP 150/71
[2018-01-26 16:02] VITALS: BP 138/94
[2018-01-26] MEDS ORDERED: NS Irrig 1000ml ONE (16:36)
[2018-01-26] MEDS: FAT EMULSION 20% IV SCH (19:41)
[2018-01-26] MEDS: TPN IV SCH (19:41)
[2018-01-26] MEDS: Dyna-Hex 2% Top Sol 2oz TOPIC SCH (19:42)
[2018-01-26 20:00] VITALS: BP 132/86
[2018-01-26] MEDS: Iron Sucrose 100 MG in NS 55 ML IV SCH (20:41)
[2018-01-27] VITALS: BP 132/89
[2018-01-27 04:00] VITALS: BP 124/91
[2018-01-27] MEDS: Ketorolac 30mg Inj IV PRN ×2 (04:04→10:18)
[2018-01-27 05:07] LABS: BASOPHILS % (AUTO) 0.9 % (0.0-2.0); EOSINOPHILS % (AUTO) 2.8 % (0.0-3.0); HEMATOCRIT 34.8 % (37.0-47.0); HEMOGLOBIN 11.9 G/DL (12.0-16.0); LYMPHOCYTES % (AUTO) 12.5 % (20.0-45.0); MEAN CORPUSCULAR VOLUME 90 FL (80-99); MONOCYTES % (AUTO) 4.2 % (1.0-10.0); NEUTROPHILS % (AUTO) 79.5 % (45.0-75.0); PLATELET COUNT 212 K/UL (150-450); RED BLOOD COUNT 3.84 M/UL (4.20-5.40); RED CELL DISTRIBUTION WIDTH 10.8 % (11.6-14.8); WHITE BLOOD COUNT 7.6 K/UL (4.8-10.8)
[2018-01-27] MEDS: NovoLOG Insulin Flexpen SUBQ SCH ×4 (05:11→23:26)
[2018-01-27 06:27] LABS: ANION GAP 5 mmol/L (5-15); BLOOD UREA NITROGEN 10 mg/dL (7-18); CALCIUM 8.4 MG/DL (8.5-10.1); CARBON DIOXIDE 29 MMOL/L (21-32); CHLORIDE 107 MMOL/L (98-107); CREATININE 0.6 MG/DL (0.55-1.30); POTASSIUM 3.6 MMOL/L (3.5-5.1); SODIUM 141 MMOL/L (136-145)
[2018-01-27] MEDS: PCA shift volume MISC SCH ×2 (07:10→19:15)
[2018-01-27 08:00] VITALS: BP 138/98
[2018-01-27] MEDS: FLUoxetine 10mg cap ORAL SCH (08:31)
[2018-01-27] MEDS: Metoprolol Succinate XL 25mg tab ORAL SCH (08:31)
--- NOTE | 2018-01-27 08:53 | General Progress Note ---
Progress Note Progress Note AVSS with decreased tachycardia and better breathing Abdomen soft, mild distention, healing nicely Urine 2200 Gastrostomy 290 BCIR ileo 215 Labs all satisfactory Imp. Atelectasis - improved Ileus Plan: increase ambulation npo, continue TPN Brady Martinez MD Jan 27, 2018 08:53
[2018-01-27] MEDS ORDERED: PCA Morphine 1mg/ml 30 ML IV PRN ×3 (09:00→10:00)
[2018-01-27] MEDS ORDERED: Morphine Sulfate 2mg/ml Inj IV PRN (10:00)
[2018-01-27] MEDS ORDERED: Rate Change PCA 1 Each MISC PRN (10:00)
[2018-01-27] MEDS ORDERED: Naloxone 0.4mg/ml Inj IVP PRN (10:00)
[2018-01-27] MEDS ORDERED: Morphine Sulfate 4mg/ml Inj (IV/IM USE ONLY) IV PRN (10:00)
[2018-01-27 12:00] VITALS: BP 148/105
[2018-01-27] MEDS: Potassium Chloride 40 MEQ in D5 1/4NS 1000ml 1,000 ML IV SCH (12:28)
[2018-01-27 16:00] VITALS: BP 135/93
[2018-01-27] MEDS: Pantoprazole Inj IVP SCH (16:41)
[2018-01-27] MEDS: LORazepam 1mg tab SL PRN (17:40)
[2018-01-27] MEDS: FAT EMULSION 20% IV SCH (20:00)
[2018-01-27] MEDS: TPN IV SCH (20:00)
[2018-01-27] MEDS: Dyna-Hex 2% Top Sol 2oz TOPIC SCH (20:00)
[2018-01-27 20:21] VITALS: BP 120/80
[2018-01-27] MEDS: Iron Sucrose 100 MG in NS 55 ML IV SCH (21:05)
[2018-01-28] VITALS (7 sets, daily range): BP systolic 120–139; BP diastolic 76–98
[2018-01-28] MEDS: NovoLOG Insulin Flexpen SUBQ SCH ×4 (05:49→23:58)
[2018-01-28 05:55] LABS: BASOPHILS % (AUTO) 0.8 % (0.0-2.0); EOSINOPHILS % (AUTO) 3.5 % (0.0-3.0); HEMATOCRIT 33.3 % (37.0-47.0); HEMOGLOBIN 11.9 G/DL (12.0-16.0); LYMPHOCYTES % (AUTO) 15.4 % (20.0-45.0); MEAN CORPUSCULAR VOLUME 91 FL (80-99); MONOCYTES % (AUTO) 4.8 % (1.0-10.0); NEUTROPHILS % (AUTO) 75.5 % (45.0-75.0); PLATELET COUNT 199 K/UL (150-450); RED BLOOD COUNT 3.65 M/UL (4.20-5.40); RED CELL DISTRIBUTION WIDTH 10.6 % (11.6-14.8); WHITE BLOOD COUNT 7.9 K/UL (4.8-10.8)
[2018-01-28 06:35] LABS: ALANINE AMINOTRANSFERASE 31 U/L (12-78); ALBUMIN 2.5 G/DL (3.4-5.0); ALBUMIN/GLOBULIN RATIO 0.7 (1.0-2.7); ALKALINE PHOSPHATASE 64 U/L (46-116); ANION GAP 3 mmol/L (5-15); ASPARTATE AMINO TRANSFERASE 30 U/L (15-37); BILIRUBIN,TOTAL 0.1 MG/DL (0.2-1.0); BLOOD UREA NITROGEN 16 mg/dL (7-18); CALCIUM 8.5 MG/DL (8.5-10.1); CARBON DIOXIDE 29 MMOL/L (21-32); CHLORIDE 106 MMOL/L (98-107); CREATININE 0.6 MG/DL (0.55-1.30); PHOSPHORUS 3.3 MG/DL (2.5-4.9); POTASSIUM 3.6 MMOL/L (3.5-5.1); SODIUM 138 MMOL/L (136-145)
[2018-01-28] MEDS: PCA shift volume MISC SCH ×2 (07:21→19:26)
[2018-01-28] MEDS: Pantoprazole Inj IVP SCH (08:15)
[2018-01-28] MEDS: Metoprolol Succinate XL 25mg tab ORAL SCH (08:15)
[2018-01-28] MEDS: FLUoxetine 10mg cap ORAL SCH (08:16)
[2018-01-28] MEDS ORDERED: Naloxone 0.4mg/ml Inj IVP PRN (08:59)
[2018-01-28] MEDS ORDERED: Morphine Sulfate 4mg/ml Inj (IV/IM USE ONLY) IV PRN (09:00)
[2018-01-28] MEDS ORDERED: Rate Change PCA 1 Each MISC PRN (09:00)
[2018-01-28] MEDS ORDERED: Morphine Sulfate 2mg/ml Inj IV PRN (09:00)
--- NOTE | 2018-01-28 09:06 | General Progress Note ---
Progress Note Progress Note AVSS with mild tachycardia. Ambulated in hallways yesterday. Had some bloody drainage via ileostomy pouch catheter - Toradol d/c'd and Protonix IV started - bleeding has resolved. No change in CBC Abdomen mild soft distention, healing nicely, darius - small amount serous Urine 1650 Gastrostomy 590 BCIR ileo 740 CBC,CMP all satisfactory/stable except Mg 1.7 and Albumin 2.5 Urine - cinthia Tongue-coated Imp. Slowly resolving ileus Transient GI bleeding ?pouch vs UGI source Thrush Plan: Continue npo, TPN, close monitoring of BCIR ileo output Increase Mg IV diflucan po and Nystatin oral susp. f/u labs Brady Martinez MD Jan 28, 2018 09:06
[2018-01-28] MEDS ORDERED: Fluconazole 100mg tab ORAL SCH (09:15)
[2018-01-28] MEDS: Nystatin Susp 500,000 units/5ml ORAL SCH ×4 (09:49→20:07)
[2018-01-28] MEDS: Potassium Chloride 40 MEQ in D5 1/4NS 1000ml 1,000 ML IV SCH ×2 (10:56→23:47)
[2018-01-28] MEDS ORDERED: NS Irrig 1000ml ONE (15:20)
[2018-01-28] MEDS ORDERED: Dextrose 10% 1,000 ML IV PRN (18:00)
[2018-01-28] MEDS ORDERED: Tubing IV Secondary IV ONE (18:15)
[2018-01-28] MEDS: LORazepam 1mg tab SL PRN (18:47)
[2018-01-28] MEDS ORDERED: FAT EMULSION 20% IV SCH (20:00)
[2018-01-28] MEDS ORDERED: TPN IV SCH (20:00)
[2018-01-28] MEDS ORDERED: [UNRECOGNIZED DRUG - OTHER] IV SCH (20:00)
[2018-01-28] MEDS: Dyna-Hex 2% Top Sol 2oz TOPIC SCH (20:07)
[2018-01-28] MEDS: Iron Sucrose 100 MG in NS 55 ML IV SCH (20:08)
[2018-01-29 04:18] VITALS: BP 121/81
[2018-01-29] MEDS: NovoLOG Insulin Flexpen SUBQ SCH ×3 (05:28→18:00)
[2018-01-29 05:48] LABS: ANION GAP 4 mmol/L (5-15); BLOOD UREA NITROGEN 11 mg/dL (7-18); CALCIUM 8.3 MG/DL (8.5-10.1); CARBON DIOXIDE 29 MMOL/L (21-32); CHLORIDE 104 MMOL/L (98-107); CREATININE 0.6 MG/DL (0.55-1.30); POTASSIUM 4.2 MMOL/L (3.5-5.1); SODIUM 137 MMOL/L (136-145)
[2018-01-29 06:46] LABS: EOSINOPHILS % (AUTO) 2.9 % (0.0-3.0); HEMATOCRIT 38.8 % (37.0-47.0); LYMPHOCYTES % (AUTO) 13.4 % (20.0-45.0); MEAN CORPUSCULAR VOLUME 92 FL (80-99); MONOCYTES % (AUTO) 6.6 % (1.0-10.0); NEUTROPHILS % (AUTO) 76.2 % (45.0-75.0); PLATELET COUNT 262 K/UL (150-450); RED BLOOD COUNT 4.22 M/UL (4.20-5.40); WHITE BLOOD COUNT 8.5 K/UL (4.8-10.8)
[2018-01-29] MEDS: PCA shift volume MISC SCH (07:24)
[2018-01-29 08:00] VITALS: BP 131/87
[2018-01-29] MEDS ORDERED: Naloxone 0.4mg/ml Inj IVP PRN (08:20)
--- NOTE | 2018-01-29 08:25 | General Progress Note ---
Progress Note Progress Note AVSS pulse 99-110 States she normally has a resting tachycardia of 90-100. No resp. distress. Ambulating much better Abdomen soft, distention is less, healing nicely, darius - scant serous urine 2450 Gastrostomy 295 BCIR ileo 420 bilious/enteric WBC 8500 Hgb 13 BMP-wnl Mg 2.1 Imp. Improved Plan: Clear liquid diet Gastrostomy 3:3 protocol D/C urinary Terry - RN to assist with prn straigh cath - history of partial neurogenic bladder continue TPN, strict I&O Brady Martinez MD Jan 29, 2018 08:25
[2018-01-29] MEDS ORDERED: Rate Change PCA 1 Each MISC PRN (08:30)
[2018-01-29] MEDS: Nystatin Susp 500,000 units/5ml ORAL SCH ×4 (08:52→21:04)
[2018-01-29] MEDS: Pantoprazole Inj IVP SCH (08:53)
[2018-01-29] MEDS: Metoprolol Succinate XL 25mg tab ORAL SCH (08:53)
[2018-01-29] MEDS: FLUoxetine 10mg cap ORAL SCH (08:53)
[2018-01-29] MEDS ORDERED: Morphine Sulfate 2mg/ml Inj IV PRN (09:00)
[2018-01-29] MEDS ORDERED: Morphine Sulfate 4mg/ml Inj (IV/IM USE ONLY) IV PRN (09:00)
--- NOTE | 2018-01-29 10:41 | Diagnostic Imaging Report ---
Indication: Cough Comparison: 01/22/2018 A single view chest radiograph was obtained. Findings: Cardiomediastinal appearance is within normal limits for age. PICC line is present in good position with the tip at the junction of SVC and right atrium. The lungs are clear. Pulmonary vascularity is appropriate. The diaphragmatic contour is smooth and costophrenic angles are sharp. No pleural effusions are identified. The bones are unremarkable. Impression: No acute findings
[2018-01-29 12:00] VITALS: BP 134/95
[2018-01-29] MEDS: LORazepam 1mg tab SL PRN ×2 (15:36→21:08)
[2018-01-29 16:15] VITALS: BP 133/92
[2018-01-29] MEDS: Neosporin Oint 15gm TOPIC SCH (18:19)
[2018-01-29] MEDS ORDERED: PCA shift volume MISC SCH (19:00)
[2018-01-29] MEDS: TPN IV SCH (20:00)
[2018-01-29] MEDS: [UNRECOGNIZED DRUG - OTHER] IV SCH (20:00)
[2018-01-29] MEDS: FAT EMULSION 20% IV SCH (20:00)
[2018-01-29 20:19] VITALS: BP 125/88
[2018-01-29] MEDS ORDERED: LORazepam 1mg tab SL PRN (21:00)
[2018-01-29] MEDS: Dyna-Hex 2% Top Sol 2oz TOPIC SCH (21:04)
[2018-01-29] MEDS: Iron Sucrose 100 MG in NS 55 ML IV SCH (21:16)
[2018-01-30 00:17] VITALS: BP 129/86
[2018-01-30] MEDS ORDERED: D5 1/4NS w/KCl 20mEq 1,000 ML IV ONE (00:36)
[2018-01-30] MEDS: Potassium Chloride 40 MEQ in D5 1/4NS 1000ml 1,000 ML IV SCH (01:02)
[2018-01-30] MEDS: LORazepam 1mg tab SL PRN ×2 (01:39→17:38)
[2018-01-30 04:00] VITALS: BP 125/83
[2018-01-30 05:03] LABS: BASOPHILS % (AUTO) 1.2 % (0.0-2.0); EOSINOPHILS % (AUTO) 2.6 % (0.0-3.0); HEMATOCRIT 37.8 % (37.0-47.0); HEMOGLOBIN 13.3 G/DL (12.0-16.0); LYMPHOCYTES % (AUTO) 16.2 % (20.0-45.0); MEAN CORPUSCULAR VOLUME 92 FL (80-99); MONOCYTES % (AUTO) 5.5 % (1.0-10.0); NEUTROPHILS % (AUTO) 74.5 % (45.0-75.0); PLATELET COUNT 276 K/UL (150-450); RED BLOOD COUNT 4.13 M/UL (4.20-5.40); WHITE BLOOD COUNT 10.6 K/UL (4.8-10.8)
[2018-01-30 05:12] LABS: ANION GAP 4 mmol/L (5-15); BLOOD UREA NITROGEN 12 mg/dL (7-18); CARBON DIOXIDE 32 MMOL/L (21-32); CHLORIDE 100 MMOL/L (98-107); CREATININE 0.6 MG/DL (0.55-1.30); POTASSIUM 4.1 MMOL/L (3.5-5.1); SODIUM 136 MMOL/L (136-145)
[2018-01-30] MEDS ORDERED: Rate Change PCA 1 Each MISC PRN (05:30)
[2018-01-30] MEDS ORDERED: PCA Morphine 1mg/ml 30 ML IV PRN (05:30)
[2018-01-30] MEDS: NovoLOG Insulin Flexpen SUBQ SCH ×5 (06:00→23:45)
[2018-01-30] MEDS ORDERED: PCA shift volume MISC SCH (07:00)
--- NOTE | 2018-01-30 07:35 | General Progress Note ---
Progress Note Progress Note AVSS Feeling better. Tolerating clear liquids and gastrostomy 3:3 Abdomen soft, healing nicely CXR - wnl Labs - wnl Urine 2850 Gastrostomy 210 BCIR ileo 410 Imp. Improving Plan: Full liquid diet and gastrostomy 5:1 protocol d/c UNION LABORER - start [place] continue Venofer, TPN, folic acid Brady Martinez MD Jan 30, 2018 07:35
[2018-01-30 08:00] VITALS: BP 130/90
[2018-01-30] MEDS: Nystatin Susp 500,000 units/5ml ORAL SCH ×4 (09:19→20:29)
[2018-01-30] MEDS: Metoprolol Succinate XL 25mg tab ORAL SCH (09:19)
[2018-01-30] MEDS: FLUoxetine 10mg cap ORAL SCH (09:20)
[2018-01-30] MEDS: Pantoprazole Inj IVP SCH (09:20)
[2018-01-30] MEDS: Neosporin Oint 15gm TOPIC SCH ×2 (10:15→17:18)
[2018-01-30 12:00] VITALS: BP 147/92
[2018-01-30] MEDS: Norco 5mg/325mg tab ORAL PRN ×3 (12:11→21:20)
[2018-01-30] MEDS ORDERED: NS Irrig 1000ml ONE (15:38)
[2018-01-30 16:00] VITALS: BP 146/96
[2018-01-30 19:58] VITALS: BP 123/83
[2018-01-30] MEDS: Dyna-Hex 2% Top Sol 2oz TOPIC SCH (20:05)
[2018-01-30] MEDS: TPN IV SCH (20:12)
[2018-01-30] MEDS: FAT EMULSION 20% IV SCH (20:12)
[2018-01-30] MEDS: [UNRECOGNIZED DRUG - OTHER] IV SCH (20:12)
[2018-01-30] MEDS: Iron Sucrose 100 MG in NS 55 ML IVPB SCH (20:29)
[2018-01-30] MEDS: Zolpidem 5mg tab ORAL PRN (20:35)
[2018-01-31] VITALS: BP 127/84
[2018-01-31] MEDS: Norco 5mg/325mg tab ORAL PRN ×2 (01:30→05:58)
[2018-01-31] MEDS: Potassium Chloride 40 MEQ in D5 1/4NS 1000ml 1,000 ML IV SCH (03:23)
[2018-01-31 04:00] VITALS: BP 141/84
[2018-01-31] MEDS: LORazepam 1mg tab SL PRN (05:01)
[2018-01-31] MEDS: NovoLOG Insulin Flexpen SUBQ SCH ×3 (06:00→17:57)
[2018-01-31 08:00] VITALS: BP 142/95
--- NOTE | 2018-01-31 08:46 | General Progress Note ---
Progress Note Progress Note AVSS Tolerating full liquids but poor appetite, mild intermittent cramping Abdomen soft, healing nicely, 1/3 rivera removed Urine 1775 Gastrostomy 360 BCIR ileo 740 Imp: Improving Plan: BCIR diet Plug gastrostomy continuously as tolerated D/C IV fluids taper off TPN tonight Maintain continuous drainage of BCIR continent ileostomy pouch Brady Martinez MD Jan 31, 2018 08:46
[2018-01-31] MEDS ORDERED: Phytonadione 10 mg/mL 1ml amp SUBQ SCH (09:00)
[2018-01-31] MEDS: Nystatin Susp 500,000 units/5ml ORAL SCH ×4 (09:10→20:16)
[2018-01-31] MEDS: FLUoxetine 10mg cap ORAL SCH (09:11)
[2018-01-31] MEDS: Metoprolol Succinate XL 25mg tab ORAL SCH (09:11)
[2018-01-31] MEDS: Neosporin Oint 15gm TOPIC SCH ×2 (09:11→17:52)
[2018-01-31] MEDS ORDERED: Fluconazole 100mg tab ORAL SCH (11:00)
[2018-01-31] MEDS: oxyCODONE HCL/Acetaminophen 5/325mg ORAL PRN ×3 (11:32→20:43)
[2018-01-31 12:00] VITALS: BP 136/95
[2018-01-31 16:00] VITALS: BP 122/84
[2018-01-31] MEDS ORDERED: NS Irrig 1000ml ONE (17:16)
[2018-01-31 20:00] VITALS: BP 111/70
[2018-01-31] MEDS: Iron Sucrose 100 MG in NS 55 ML IVPB SCH (20:15)
[2018-01-31] MEDS: Dyna-Hex 2% Top Sol 2oz TOPIC SCH (20:15)
[2018-01-31] MEDS: Zolpidem 5mg tab ORAL PRN (21:57)
[2018-02-01] VITALS: BP 107/69
[2018-02-01] MEDS: oxyCODONE HCL/Acetaminophen 5/325mg ORAL PRN ×5 (02:41→20:09)
[2018-02-01 04:00] VITALS: BP 105/66
[2018-02-01 05:32] LABS: BASOPHILS % (AUTO) 1.2 % (0.0-2.0); EOSINOPHILS % (AUTO) 1.5 % (0.0-3.0); HEMATOCRIT 37.1 % (37.0-47.0); HEMOGLOBIN 12.5 G/DL (12.0-16.0); LYMPHOCYTES % (AUTO) 14.6 % (20.0-45.0); MEAN CORPUSCULAR VOLUME 91 FL (80-99); MONOCYTES % (AUTO) 5.9 % (1.0-10.0); NEUTROPHILS % (AUTO) 76.8 % (45.0-75.0); PLATELET COUNT 300 K/UL (150-450); RED BLOOD COUNT 4.07 M/UL (4.20-5.40); RED CELL DISTRIBUTION WIDTH 11.2 % (11.6-14.8); WHITE BLOOD COUNT 9.9 K/UL (4.8-10.8)
[2018-02-01 05:53] LABS: ALANINE AMINOTRANSFERASE 42 U/L (12-78); ALBUMIN 3.1 G/DL (3.4-5.0); ALBUMIN/GLOBULIN RATIO 0.7 (1.0-2.7); ALKALINE PHOSPHATASE 107 U/L (46-116); ANION GAP 7 mmol/L (5-15); ASPARTATE AMINO TRANSFERASE 28 U/L (15-37); BILIRUBIN,TOTAL 0.3 MG/DL (0.2-1.0); BLOOD UREA NITROGEN 15 mg/dL (7-18); CALCIUM 9.1 MG/DL (8.5-10.1); CARBON DIOXIDE 30 MMOL/L (21-32); CHLORIDE 100 MMOL/L (98-107); CREATININE 0.7 MG/DL (0.55-1.30); POTASSIUM 4.3 MMOL/L (3.5-5.1); SODIUM 136 MMOL/L (136-145)
[2018-02-01 08:00] VITALS: BP 139/87
[2018-02-01] MEDS: Metoprolol Succinate XL 25mg tab ORAL SCH (08:29)
[2018-02-01] MEDS: Fluconazole 100mg tab ORAL SCH (08:35)
[2018-02-01] MEDS: Nystatin Susp 500,000 units/5ml ORAL SCH ×4 (08:35→20:08)
[2018-02-01] MEDS: Neosporin Oint 15gm TOPIC SCH ×2 (08:35→17:45)
[2018-02-01] MEDS: FLUoxetine 10mg cap ORAL SCH (08:35)
--- NOTE | 2018-02-01 08:42 | General Progress Note ---
Progress Note Progress Note AVSS Eating BCIR diet only 40%. TPN stopped last night Abdomen soft, healing nicely. [place] drain removed Urine 2300 BCIR ileo 1220 watery Gastrostomy plugged WBC 9900 Hgb 12.5 BUN 15 Cr 0.7 albumin up 3.1 Imp. Slow improvement Plan: Follow po intake closely off IV fluids and off TPN Maintain continuous drainage of Ramos Pouch Diflucan po for persistent thrush c. diff toxin follow I&O carefully Brady Martinez MD Feb 01, 2018 08:42
[2018-02-01 12:00] VITALS: BP 136/83
[2018-02-01 16:00] VITALS: BP 113/64
[2018-02-01 20:00] VITALS: BP 108/77
[2018-02-01] MEDS: Dyna-Hex 2% Top Sol 2oz TOPIC SCH (20:08)
[2018-02-01] MEDS: Zolpidem 5mg tab ORAL PRN (21:30)
[2018-02-01] MEDS: Iron Sucrose 100 MG in NS 55 ML IVPB SCH (21:54)
[2018-02-02] VITALS: BP 115/75
[2018-02-02] MEDS: oxyCODONE HCL/Acetaminophen 5/325mg ORAL PRN ×6 (00:10→21:42)
[2018-02-02 04:30] VITALS: BP 111/76
[2018-02-02 08:00] VITALS: BP 112/70
[2018-02-02] MEDS: Nystatin Susp 500,000 units/5ml ORAL SCH (09:08)
[2018-02-02] MEDS: FLUoxetine 10mg cap ORAL SCH (09:09)
[2018-02-02] MEDS: Metoprolol Succinate XL 25mg tab ORAL SCH (09:09)
[2018-02-02] MEDS: Fluconazole 100mg tab ORAL SCH (09:10)
[2018-02-02] MEDS: Neosporin Oint 15gm TOPIC SCH ×2 (09:10→17:38)
--- NOTE | 2018-02-02 09:52 | General Progress Note ---
Progress Note Progress Note AVSS Still eating only 30% but better appetite this AM Abdomen soft, healing nicely Urine 1400 BCIR ileo 840 Gastrostomy removed Imp. Borderline po intake Plan: Maintain continuous drainage of Ramos Pouch labs in AM hopefully can begin BCIR self-intubation RN education/teaching tomorrow continue I&O Brady Martinez MD Feb 02, 2018 09:52
[2018-02-02] MEDS ORDERED: Tubing IV Secondary IV ONE (10:13)
[2018-02-02 12:00] VITALS: BP 128/72
[2018-02-02] MEDS ORDERED: LORazepam 1mg tab SL PRN (13:00)
[2018-02-02 16:00] VITALS: BP 105/67
[2018-02-02 20:00] VITALS: BP 110/75
[2018-02-02] MEDS: Dyna-Hex 2% Top Sol 2oz TOPIC SCH (20:12)
[2018-02-02] MEDS: Iron Sucrose 100 MG in NS 55 ML IVPB SCH (20:12)
[2018-02-02] MEDS: Zolpidem 5mg tab ORAL PRN (20:35)
[2018-02-03] VITALS: BP 109/73
[2018-02-03] MEDS: oxyCODONE HCL/Acetaminophen 5/325mg ORAL PRN ×5 (01:43→20:47)
[2018-02-03 04:00] VITALS: BP 108/67
[2018-02-03 05:52] LABS: EOSINOPHILS % (AUTO) 1.6 % (0.0-3.0); HEMATOCRIT 40.4 % (37.0-47.0); HEMOGLOBIN 13.6 G/DL (12.0-16.0); LYMPHOCYTES % (AUTO) 15.4 % (20.0-45.0); MEAN CORPUSCULAR VOLUME 92 FL (80-99); MONOCYTES % (AUTO) 6.1 % (1.0-10.0); NEUTROPHILS % (AUTO) 75.9 % (45.0-75.0); PLATELET COUNT 342 K/UL (150-450); RED BLOOD COUNT 4.41 M/UL (4.20-5.40); RED CELL DISTRIBUTION WIDTH 11.2 % (11.6-14.8); WHITE BLOOD COUNT 11.1 K/UL (4.8-10.8)
[2018-02-03 06:09] LABS: ALANINE AMINOTRANSFERASE 41 U/L (12-78); ALBUMIN 3.2 G/DL (3.4-5.0); ALBUMIN/GLOBULIN RATIO 0.6 (1.0-2.7); ALKALINE PHOSPHATASE 120 U/L (46-116); ANION GAP 4 mmol/L (5-15); ASPARTATE AMINO TRANSFERASE 27 U/L (15-37); BILIRUBIN,TOTAL 0.2 MG/DL (0.2-1.0); BLOOD UREA NITROGEN 17 mg/dL (7-18); CALCIUM 9.7 MG/DL (8.5-10.1); CARBON DIOXIDE 34 MMOL/L (21-32); CHLORIDE 99 MMOL/L (98-107); CREATININE 0.8 MG/DL (0.55-1.30); POTASSIUM 4.4 MMOL/L (3.5-5.1); SODIUM 137 MMOL/L (136-145)
[2018-02-03 08:00] VITALS: BP 114/73
[2018-02-03] MEDS: Neosporin Oint 15gm TOPIC SCH (08:31)
[2018-02-03] MEDS: FLUoxetine 10mg cap ORAL SCH (08:31)
[2018-02-03] MEDS: Metoprolol Succinate XL 25mg tab ORAL SCH (08:31)
--- NOTE | 2018-02-03 09:49 | General Progress Note ---
Progress Note Progress Note AVSS Eating better 75% with good fluid intake. ABdomen soft. April/sutures removed and steri-strips applied Urine 2150 BCIR ileo 1100 WBC 11,100 Hgb 13.6 B"UN 178 Cr 0.8 albumin up 3.2 BCIR ileo catheter removed - reinserts readily Imp. doing well Plan: RN education/supervision with BCIR self-intubations: q2h am to hs and q0200 and prn Continue I&O remove PIC after last dose of Venofer given tonight (1000mg total) Brady Martinez MD Feb 03, 2018 09:49
[2018-02-03 12:00] VITALS: BP 112/82
[2018-02-03 16:00] VITALS: BP 117/73
[2018-02-03 20:00] VITALS: BP 126/88
[2018-02-03] MEDS: Dyna-Hex 2% Top Sol 2oz TOPIC SCH (20:47)
[2018-02-03] MEDS: Iron Sucrose 100 MG in NS 55 ML IVPB SCH (20:47)
[2018-02-03] MEDS: Zolpidem 5mg tab ORAL PRN (21:54)
[2018-02-04] VITALS: BP 99/67
[2018-02-04] MEDS: oxyCODONE HCL/Acetaminophen 5/325mg ORAL PRN ×4 (03:38→20:13)
[2018-02-04 04:00] VITALS: BP 110/61
[2018-02-04 08:08] VITALS: BP 117/76
[2018-02-04] MEDS: FLUoxetine 10mg cap ORAL SCH (08:30)
[2018-02-04] MEDS: Metoprolol Succinate XL 25mg tab ORAL SCH (08:30)
--- NOTE | 2018-02-04 08:53 | General Progress Note ---
Progress Note Progress Note AVSS Having difficulty with intubation and emptying of BCIR pouch, and output is very watery with odor. Ate well 100% c/o nausea Abdomen soft, mildly distended Urine 1780 BCIR ileo 755 28 Terry inserted into pouch without difficulty with evacuation of watery green effluent 50cc Imp. Pouchitis/bacterial overgrowth enteritis Plan; Cipro 500mg po STAT and q12h Flagyl 250mg po STAT and TID continuous drainage of BCIR - hopefully can resume self-intubations tomorrow Brady Martinez MD Feb 04, 2018 08:53
[2018-02-04] MEDS: metroNIDAZOLE 250mg tab ORAL SCH ×3 (08:56→17:33)
[2018-02-04] MEDS: Ciprofloxacin 500mg tab ORAL SCH ×2 (08:56→20:13)
[2018-02-04 15:28] VITALS: BP 105/74
[2018-02-04 20:00] VITALS: BP 113/81
[2018-02-04] MEDS: Dyna-Hex 2% Top Sol 2oz TOPIC SCH (20:00)
[2018-02-04] MEDS: Ascorbic Acid 500mg tab ORAL PRN (20:19)
[2018-02-04] MEDS: Zolpidem 5mg tab ORAL PRN (21:23)
[2018-02-05] VITALS: BP 102/66
[2018-02-05] MEDS: oxyCODONE HCL/Acetaminophen 5/325mg ORAL PRN ×3 (03:38→17:32)
[2018-02-05 04:00] VITALS: BP 104/65
[2018-02-05 08:00] VITALS: BP 114/77
[2018-02-05] MEDS: FLUoxetine 10mg cap ORAL SCH (08:48)
[2018-02-05] MEDS: Ciprofloxacin 500mg tab ORAL SCH ×2 (08:49→21:12)
[2018-02-05] MEDS: Metoprolol Succinate XL 25mg tab ORAL SCH (08:49)
[2018-02-05] MEDS: metroNIDAZOLE 250mg tab ORAL SCH ×3 (08:49→21:12)
--- NOTE | 2018-02-05 09:00 | General Progress Note ---
Progress Note Progress Note Feeling much better with Cipro and flagyl po with less watery effluent Abdomen soft Urine 850 BCIR ileo [id number] Imp. Pouchitis - improved with treatment Plan; Resume BCIR self-intubations with RN teaching: q2h am to and 0200 continue I&O Brady Martinez MD Feb 05, 2018 09:00
[2018-02-05] MEDS: Ascorbic Acid 500mg tab ORAL PRN ×2 (11:35→17:32)
[2018-02-05 12:34] VITALS: BP 109/78
[2018-02-05 16:37] VITALS: BP 113/75
[2018-02-05 20:00] VITALS: BP 110/78
[2018-02-05] MEDS: Dyna-Hex 2% Top Sol 2oz TOPIC SCH (20:00)
[2018-02-05] MEDS: Zolpidem 5mg tab ORAL PRN (21:12)
[2018-02-06] VITALS: BP 108/72
[2018-02-06] MEDS: Ascorbic Acid 500mg tab ORAL PRN ×2 (03:27→10:23)
[2018-02-06] MEDS: oxyCODONE HCL/Acetaminophen 5/325mg ORAL PRN ×4 (03:28→21:46)
[2018-02-06 04:44] VITALS: BP 119/80
[2018-02-06] MEDS: metroNIDAZOLE 250mg tab ORAL SCH ×3 (06:23→21:46)
[2018-02-06 08:00] VITALS: BP 104/76
--- NOTE | 2018-02-06 08:51 | General Progress Note ---
Progress Note Progress Note AVSS Intubating well with 28 Terry. Cramping and watery effluent with odor has resolved Ate 100% yesterday Abdomen soft, well healed Urine 1500 BCIR fileo 1060 Imp. Pouchitis resolved Plan: Continue RN supervised q2h BCIR self-intubations am to hs and 0200 Prepare for discharge in AM Rx Percocet 5/325 #40; Cipro 500mg q12h #30, Flagyl 250mg TID #40 Brady Martinez MD Feb 06, 2018 08:51
[2018-02-06] MEDS: Metoprolol Succinate XL 25mg tab ORAL SCH (09:00)
[2018-02-06] MEDS: Ciprofloxacin 500mg tab ORAL SCH ×2 (09:34→20:20)
[2018-02-06] MEDS: FLUoxetine 10mg cap ORAL SCH (09:35)
[2018-02-06 12:00] VITALS: BP 123/83
--- NOTE | 2018-02-06 15:04 | General Progress Note ---
Progress Note Progress Note Has learned BCIR intubation techniques and is doing well using the 28Foley to intubate. Full supplies/instructions/limitations provided/discussed. To be discharged in early AM for flight home to [place] Desir MD Feb 06, 2018 15:04
[2018-02-06 16:00] VITALS: BP 115/83
[2018-02-06] MEDS ORDERED: OXYCODONE-ACET1 EAC3 ORAL (19:55)
[2018-02-06] MEDS ORDERED: CIPRO500 MG PO (19:56)
[2018-02-06] MEDS ORDERED: FLAGYL250 MG ORAL (19:57)
[2018-02-06 20:00] VITALS: BP 114/78
[2018-02-06] MEDS: Zolpidem 5mg tab ORAL PRN (20:20)
[2018-02-07 04:00] VITALS: BP 119/74
[2018-02-07] MEDS: Ascorbic Acid 500mg tab ORAL PRN (04:57)
[2018-02-07] MEDS: oxyCODONE HCL/Acetaminophen 5/325mg ORAL PRN (04:57)
--- NOTE | 2018-02-09 09:24 | Discharge Summary ---
Discharge Summary Discharge Summary _ DATE OF ADMISSION: 01/22/2018 DATE OF DISCHARGE: 02/07/2018 HISTORY OF PRESENT ILLNESS: The patient is a 37-year-old female in overall good health with a severely malfunctioning ileostomy. The patient developed ulcerative colitis in 2000 while 6 months . In January 2009 she underwent total colectomy with creation of an ileoanal J-pouch with temporary loop ileostomy. This was associated with transient urinary retention. The patient developed a presacral abscess, stricture at the anus, fistula, cuffitis, and required incision and drainage of a buttock abscess. In August 2009 she underwent surgery with resection of her failed J-pouch with abdominoperineal proctectomy and creation of a April ileostomy. There was no evidence of Crohn's disease. Since creation of the ileostomy the patient has had significant difficulty. She must change her appliance frequently. She has recurring episodes of leakage with very excoriated skin with every appliance change. She wakes every night to manage and deal with her ileostomy appliance. She has not had any improvement working with enterostomal therapy/WOCN and trying many different appliances. She was admitted to undergo surgery to convert her malfunctioning conventional ileostomy to a Ramos continent intestinal reservoir continent ileostomy. BRIEF HOSPITAL COURSE: On the day of admission, the patient had placement of a dual lumen PICC line. Her laboratory studies are satisfactory with only slightly low potassium of 3.4, but no anemia and normal albumin. Her urinalysis showed an obvious urinary tract infection and intravenous Levaquin was started this afternoon instead of waiting until immediately preoperatively. She also also received intravenous Flagyl and subcutaneous heparin in the morning. On 01/23/2018, she underwent Ramos continent intestinal reservoir and catheter gastrostomy.The patient tolerated the procedure well and left the operating room in good condition. Postop day #1. She came was continued on nothing by mouth. She was started on TPN. She continued to have abdominal pain despite Dilaudid BALL ASSEMBLER. Abdomen was soft, incision was clean, stoma was pink, [place] was draining serosanguineous a moderate discharge. Urine culture showed growth of gram-negative bacilli. Toradol was added. She was encouraged mobilization. Postop day #2. C/O nausea despite Zofran and Reglan. Fair IS effort c/o bloating /gas Abdomen mildly distended, soft, incisions clean, stoma pink, darius serous drainage. Reglan was discontinued. she was given IV compazine. Continues basal infusion of BALL ASSEMBLER was discondinued. She was given venofer and folic acid. Postop day #3. AVSS with persistent mild tachycardia. Unable to cough productively - with IS effort mild congestion. Nausea is improved Abdomen mildly distended, soft, incisions clean, stoma pink, darius small amount serous U/A improved - repeat urine C&S no growth She was given respiratory treatments. Potassium in IV was increased. Postop day #4: AVSS with decreased tachycardia and better breathing Abdomen soft, mild distention, healing nicely She was encouraged increase ambulation. Continue NPO and TPN Postop day #5: AVSS with mild tachycardia. Ambulated in hallways. Had some bloody drainage via ileostomy pouch catheter - Toradol d/c'd and Protonix IV started - bleeding has resolved. No change in CBC Abdomen mild soft distention, healing nicely, darius - small amount serous Urine - icnthia Tongue-coated Plan: Continue npo, TPN, close monitoring of BCIR ileo output Increase Mg IV diflucan po and Nystatin oral susp. Postop day #6. AVSS pulse 99-110. Ambulating much better Abdomen soft, distention is less, healing nicely, darius - scant serous Started on clear liquid diet Gastrostomy 3:3 protocol D/C urinary Terry continue TPN, strict I&O Postop day#7. Tolerating clear liquids and gastrostomy 3:3 Diet advanced to Full liquid diet and gastrostomy 5:1 protocol d/c BALL ASSEMBLER - start [place] continue Venofer, TPN, folic acid Postop day #8. AVSS Tolerating full liquids but poor appetite, mild intermittent cramping Abdomen soft, healing nicely, 1/3 rivera removed BCIR diet Plug gastrostomy continuously as tolerated D/C IV fluids taper off TPN Maintain continuous drainage of BCIR continent ileostomy pouch Postop day #9. Eating BCIR diet only 40%. TPN stopped last night Abdomen soft, healing nicely. [place] drain removed Plan: Follow po intake closely off IV fluids and off TPN Maintain continuous drainage of Ramos Pouch Diflucan po for persistent thrush c. diff toxin Postop day #10. Still eating only 30% but better appetite this AM Plan: Maintain continuous drainage of Ramos Pouch hopefully can begin BCIR self-intubation RN education/teaching tomorrow Postop day #11. Eating better 75% with good fluid intake. ABdomen soft. [place]/sutures removed and steri-strips applied BCIR ileo catheter removed - reinserts readily Continue RN education/supervision with BCIR self-intubations: q2h am to hs and q0200 and prn remove PICC after last dose of Venofer Postop day #12. Having difficulty with intubation and emptying of BCIR pouch, and output is very watery with odor. Ate well 100% c/o nausea Abdomen soft, mildly distended 28 Terry inserted into pouch without difficulty with evacuation of watery green effluent 50cc Imp. Pouchitis/bacterial overgrowth enteritis started on Cipro 500mg po STAT and q12h Flagyl 250mg po STAT and TID continuous drainage of BCIR Postop day #13. Feeling much better with Cipro and flagyl po with less watery effluent Imp. Pouchitis - improved with treatment Resume BCIR self-intubations with RN teaching: q2h am to hs and 0200 Postop day #14: AVSS Intubating well with 28 Terry. Cramping and watery effluent with odor has resolved Abdomen soft, well healed Imp. Pouchitis resolved Plan: Continue RN supervised q2h BCIR self-intubations am to hs and 0200 For early discharge in AM Rx Percocet 5/325 #40; Cipro 500mg q12h #30, Flagyl 250mg TID #40 Has learned BCIR intubation techniques and is doing well using the 28Foley to intubate. Full supplies/instructions/limitations provided/discussed. To be discharged in early AM for flight home to [place] FINAL DIAGNOSES: PREOPERATIVE DIAGNOSES: 1. Malfunctioning April ileostomy. 2. History of ulcerative colitis. 3. Recent episode of small bowel obstruction. 4. Status post multiple abdominal operations. 4.1. Total colectomy with ileoanal J-pouch with ileostomy in January 2009 4.2. Resection of failed J-pouch with abdominoperineal proctectomy and creation of end April ileostomy in 2009. 4.3. Open cholecystectomy in January 2017. POSTOPERATIVE DIAGNOSES: 1. Malfunctioning April ileostomy. 2. History of ulcerative colitis. 3. Recent episode of small bowel obstruction. 4. Status post multiple abdominal operations. 4.1. Total colectomy with ileoanal J-pouch with ileostomy in January 2009 4.2. Resection of failed J-pouch with abdominoperineal proctectomy and creation of end April ileostomy in 2009. 4.3. Open cholecystectomy in January 2017. OPERATION PERFORMED: Ramos continent intestinal reservoir and catheter gastrostomy. DISPOSITION: Patient was discharged home. I have been assigned to dictate discharge summary on this account, and I was not involved in the patient's management. Radha Rutledge NP Feb 09, 2018 09:24
== END 2018-02-07 05:10 | disposition home or self-care (01) | DRG 330 ==
LOC: 3E 09:09
PROC: 0D1B0Z4 Bypass Ileum to Cutaneous, Open Approach (ICD-10-PCS; principal; 2018-01-23 07:30)
PROC: 0DBB0ZZ Excision of Ileum, Open Approach (ICD-10-PCS; principal; 2018-01-23 07:30)
PROC: 0DH63UZ Insertion of Feeding Device into Stomach, Percutaneous Approach (ICD-10-PCS; principal; 2018-01-23 07:30)
DX: K94.13 Enterostomy malfunction (principal); K91.850 Pouchitis; K56.7 Ileus, unspecified; J98.11 Atelectasis; B37.0 Candidal stomatitis; N31.9 Neuromuscular dysfunction of bladder, unspecified; R11.0 Nausea; R00.0 Tachycardia, unspecified
CPT/HCPCS: 36415; 36569; 71045; 76937; 80048; 80053; 81001; 81025; 82607; 82746; 82962; 83540; 83550; 83735; 84100; 85025; 85610; 85730; 86850; 86900; 86901; 87086; 87181; 87324; 93005; 94003; 94150; J1815; J2250; J2370; J2405; J2710; J2765

== ENCOUNTER 2019-05-03 21:29 | Inpatient (IN) | payer BC ==
[~2019-05-03] VITALS: Ht 160 cm; Wt 58.5 kg
[~2019-05-03 21:29] MED LIST: CIPRO500 MG PO; FLAGYL250 MG ORAL; METOPROLOL SUCC25 MG ORAL; OXYCODONE-ACET1 EAC3 ORAL; PROZAC20 MG ORAL; XANAX0.5 MG ORAL
--- NOTE | 2019-05-03 21:54 | Emergency Room Report ---
History of Present Illness General Chief Complaint: Gastrointestinal Illness Source: Patient, Medical Record, PMD Present Illness HPI This a 38-year-old female with history of ulcerative colitis with extensive surgery. In December 2017 she had a BCIR surgery done by Dr. Martinez. She was doing well since then. She presents with chief complaint of difficulty intubating her pouch. About a week ago she started having problem intubating the pouch. She had to use more force. It got worse and now she barely got a 28 [place] Cardenas in. Has some abdominal pain and fullness. No fever chills but no nausea no vomiting. No diarrhea. Denies any other complaint. She was told to come in for revision. Allergies: Coded Allergies: ERYTHROMYCIN BASE (Verified Allergy, Intermediate, rash, 01/22/18) PENICILLINS (Verified Allergy, Intermediate, rash, hi9ves, 01/22/18) Patient History Past Medical History: see triage record, old chart reviewed Past Surgical History: other Pertinent Family History: none Social History: Denies: smoking Last Menstrual Period: 04/19/2019 Now: No Immunizations: other Reviewed Nursing Documentation: PMH: Agreed; PSxH: Agreed Nursing Documentation-PMH Hx Hypertension: Yes Hx Cancer: No Hx Gastrointestinal Problems: Yes - Ulcerative colitis 2000 History Of Psychiatric Problem: No - depression Hx Neurological Problems: No Review of Systems Eye: Denies: eye pain, blurred vision ENT: Denies: ear pain, nose congestion, throat swelling Respiratory: Denies: cough, shortness of breath Cardiovascular: Denies: chest pain, palpitations Gastrointestinal: Reports: abdominal pain; Denies: diarrhea, nausea, vomiting Musculoskeletal: Denies: back pain, joint pain Skin: Denies: rash Neurological: Denies: headache, numbness Endocrine: Denies: increased thirst, increased urine Hematologic/Lymphatic: Denies: easy bruising All Other Systems: negative except mentioned in HPI Physical Exam Vital Signs Date Time Temp Pulse Resp B/P (MAP) Pulse Ox O2 Delivery O2 Flow Rate FiO2 05/03/19 21:32 97.5 85 16 126/84 (98) 95 Room Air Vitals normal Sp02 EP Interpretation: reviewed, normal General Appearance: well appearing, no apparent distress, alert Head: normocephalic, atraumatic Eyes: bilateral eye PERRL, bilateral eye EOMI ENT: hearing grossly normal, normal pharynx Neck: full range of motion, supple, no meningismus Respiratory: chest non-tender, lungs clear, normal breath sounds Cardiovascular #1: regular rate, rhythm, no murmur Gastrointestinal: normal bowel sounds, non tender, no mass, no organomegaly, no bruit, non-distended, other - Patient has a BCIR with 28 Fr cardenas. mild erythema surrounding it. Musculoskeletal: back normal, normal range of motion, gait/station normal Psychiatric: mood/affect normal Medical Decision Making Diagnostic Impression: Primary Impression: Ileostomy dysfunction ER Course This patient presents with a BCIR malfunction. I discussed case with Dr. Martinez who will admit. Last Vital Signs Date Time Temp Pulse Resp B/P (MAP) Pulse Ox O2 Delivery O2 Flow Rate FiO2 05/03/19 21:32 97.5 85 16 126/84 (98) 95 Room Air Status: unchanged Disposition: ADMITTED INPATIENT Condition: Serious Drew López MD May 03, 2019 21:53
--- NOTE | 2019-05-03 22:00 | NUR ---
ED Nurse Note: Recieved pt from home, traveled from [facility], pt is pt of , here with c/o abdominal pressure and possible ciomplications for Ramos pouch placed in 2018, pt is awake, alert and oriented x 4, pt does self catherization and states it has become hard to cath at times and getting worse over about 1 week, no problemd reported with urinary cath, pt denies CP, SOB, or anty other complaints, pt is very pleasant, pt gowned and given all supplies needed for self cath, urine specimen sent, pt placed onc ardiac monitoring, will resume care as ordered and closely monitor. pt has mild abdominal pain at 7/10 intermittently.
[2019-05-03] MEDS ORDERED: Morphine Sulfate 4mg/ml Inj (IV USE ONLY) IVP ONE ×2 (22:15→23:30)
[2019-05-03 22:16] LABS: APPEARANCE,URINE CLOUDY; BILIRUBIN, URINE NEGATIVE (NEGATIVE); GLUCOSE, URINE (UA) NEGATIVE (NEGATIVE); KETONES,URINE 1+ (NEGATIVE); LEUKOCYTE ESTERASE ,URINE 3+ (NEGATIVE); NITRITE,URINE NEGATIVE (NEGATIVE); PH,URINE 5 (4.5-8.0); PROTEIN,URINE 1+ (NEGATIVE); UROBILINOGEN,URINE NORMAL MG/DL (0.0-1.0)
[2019-05-03 22:20] LABS: COLOR,URINE YELLOW
[2019-05-03 22:24] LABS: BASOPHILS % (AUTO) 1.5 % (0.0-2.0); EOSINOPHILS % (AUTO) 1.5 % (0.0-3.0); HEMATOCRIT 38.7 % (37.0-47.0); HEMOGLOBIN 13.7 G/DL (12.0-16.0); LYMPHOCYTES % (AUTO) 35.6 % (20.0-45.0); MEAN CORPUSCULAR VOLUME 93 FL (80-99); MONOCYTES % (AUTO) 5.1 % (1.0-10.0); NEUTROPHILS % (AUTO) 56.2 % (45.0-75.0); PLATELET COUNT 317 K/UL (150-450); RED BLOOD COUNT 4.14 M/UL (4.20-5.40); RED CELL DISTRIBUTION WIDTH 10.7 % (11.6-14.8)
[2019-05-03 22:42] LABS: ANION GAP 10 mmol/L (5-15); BLOOD UREA NITROGEN 18 mg/dL (7-18); CALCIUM 8.8 MG/DL (8.5-10.1); CARBON DIOXIDE 27 MMOL/L (21-32); CHLORIDE 104 MMOL/L (98-107); CREATININE 0.7 MG/DL (0.55-1.30); POTASSIUM 3.5 MMOL/L (3.5-5.1); SODIUM 140 MMOL/L (136-145)
[2019-05-03] MEDS ORDERED: cefTRIAXone 1 GM in NS 55 ML IVPB ONE (22:45)
[2019-05-03 22:46] LABS: ALANINE AMINOTRANSFERASE 27 U/L (12-78); ALBUMIN 3.9 G/DL (3.4-5.0); ALBUMIN/GLOBULIN RATIO 1.2 (1.0-2.7); ALKALINE PHOSPHATASE 44 U/L (46-116); ASPARTATE AMINO TRANSFERASE 17 U/L (15-37); BILIRUBIN,TOTAL 0.2 MG/DL (0.2-1.0)
[2019-05-03 23:45] VITALS: BP 122/79
--- NOTE | 2019-05-03 23:50 | NUR ---
ED Nurse Note: Placed call to floor unit for report, was informed to call back nurse is busy per JARET Cortez, pt resting quietly, just re-medicated for pain, IV site patent, no s/s of adverse reaction from IV antibiotic given, NAD or changes noted, will call back for report to send to floor bed.
--- NOTE | 2019-05-04 00:25 | NUR ---
ED Nurse Note: Report given to floor nurse RaziaRN, report given and all pertinent info, pt in bed awake, alert and oriented x 4, pain at 5/10, meds given effective with decreasing pain level, IV site patent, belongings list completed and pt refuses to disclose money and wants to keep all valuables with her, form signed, pt being taken to floor unit via gurney and with ER-Tech.
[2019-05-04 00:32] VITALS: BP 109/75
[2019-05-04] MEDS: D5 1/2NS w/KCl 20mEq 1,000 ML IV SCH ×3 (02:18→22:12)
[2019-05-04 04:00] VITALS: BP 110/69
[2019-05-04 05:51] LABS: BASOPHILS % (AUTO) 1.3 % (0.0-2.0); EOSINOPHILS % (AUTO) 1.1 % (0.0-3.0); HEMATOCRIT 36.4 % (37.0-47.0); HEMOGLOBIN 12.9 G/DL (12.0-16.0); LYMPHOCYTES % (AUTO) 25.1 % (20.0-45.0); MEAN CORPUSCULAR VOLUME 94 FL (80-99); MONOCYTES % (AUTO) 5.6 % (1.0-10.0); PLATELET COUNT 270 K/UL (150-450); RED BLOOD COUNT 3.87 M/UL (4.20-5.40); RED CELL DISTRIBUTION WIDTH 10.9 % (11.6-14.8); WHITE BLOOD COUNT 7.5 K/UL (4.8-10.8)
[2019-05-04 06:42] LABS: ALANINE AMINOTRANSFERASE 21 U/L (12-78); ALBUMIN 3.4 G/DL (3.4-5.0); ALBUMIN/GLOBULIN RATIO 1.1 (1.0-2.7); ALKALINE PHOSPHATASE 32 U/L (46-116); ANION GAP 7 mmol/L (5-15); ASPARTATE AMINO TRANSFERASE 16 U/L (15-37); BILIRUBIN,TOTAL 0.3 MG/DL (0.2-1.0); BLOOD UREA NITROGEN 14 mg/dL (7-18); CALCIUM 8.3 MG/DL (8.5-10.1); CARBON DIOXIDE 27 MMOL/L (21-32); CHLORIDE 108 MMOL/L (98-107); CREATININE 0.7 MG/DL (0.55-1.30); POTASSIUM 3.7 MMOL/L (3.5-5.1); SODIUM 142 MMOL/L (136-145)
--- NOTE | 2019-05-04 07:09 | NUR ---
nurse's notes: BCIR connected to drainage bag; flushed with 20cc NS as ordered; very minimal output noted = 10 ml of brown liquid stool. no complaints of pain or any distress; patient did not void from time of admission but admitted to have urinated when she was in ED. otherwise, all orders noted and initiated.
--- NOTE | 2019-05-04 07:58 | NUR ---
NURSE NOTES: Received report from Razia RN, pt a/a/o x4 laying in bed with no signs of distress or other issues at this time. IV on the right AC gauge#20 running D51/2 NS+ 20mEq@100ml/hr. no skin issues. ileostomy draining to gravity. call light within reach, bed in lowest position, side rales up x2. I will f/u as needed.
[2019-05-04 08:00] VITALS: BP 124/78
--- NOTE | 2019-05-04 09:36 | General Progress Note ---
Progress Note Progress Note Admitted from ED last night with very recent extreme difficulty with intubation of her Ramos Continent Ileostomy resulting in bowel obstruction as no stool or gas comes out of her stoma until she inserts her usual 30French Medena catheter. She briefly was able to intubate yesterday but not since. No emesis but distention and uncomfortable cramping Abdomen soft, midline scar, stoma low in RLQ, no hernia, Labs satisfactory UTI - history of neurogenic bladder for years since proctectomy for ulcerative colitis and she voids and also self-caths 2-3x daily Imp: Malfunctioning Ramos Continent Ileostomy with inability to intubate with resulting small bowel obstruction I was unable to insert cardenas 28,26 or 24. I was able to insert an 18Fr [place] Sump NG tube into the Ramos ileostomy pouch with return of thick effluent and gas Plan: NPO, Ramos pouch catheter to medium intermittent suction IV fluids and hydration Rocephin IV for UTI pending C&S Ramos pouch endoscopy in AM Brady Martinez MD May 04, 2019 09:35
[2019-05-04] MEDS ORDERED: LORazepam 1mg tab ORAL PRN (09:45)
[2019-05-04] MEDS: cefTRIAXone 1 GM in D5W 55 ML IVPB SCH (10:10)
[2019-05-04 12:00] VITALS: BP 123/82
[2019-05-04 16:00] VITALS: BP 128/77
--- NOTE | 2019-05-04 18:45 | Pre-op HX & Phy Repo 2 SIG ---
DATE OF EMERGENCY ADMISSION: 05/03/2019 EMERGENCY ADMISSION FROM THE EMERGENCY ROOM ON THE NIGHT OF 05/03/2019 DATE OF ADMISSION FROM EMERGENCY ROOM: 05/03/2019 at 11 p.m. HISTORY OF PRESENT ILLNESS: The patient is a 38-year-old female who came to the hospital emergency room with acute inability to catheterize her Ramos continent ileostomy with resulting functional bowel obstruction with distention and cramping, but no vomiting. The patient has a past history of ulcerative colitis and has undergone several operations, which will be listed at the end of this dictation. In December 2017, she underwent conversion of her malfunctioning conventional ileostomy to a Ramos continent intestinal reservoir. She has done very well and usually intubates 4 to 5 times per day. In the past few days, she has had marked difficulty to insert her 30-Rwandan catheter into her pouch to evacuate stool and gas. The catheter goes approximately 3 inches into the stoma access segment and no further. She uses a 30-Rwandan Medena catheter. Today, she has only been able to catheterize twice. She went to a local emergency room who put in an 8-Rwandan catheter and did a retrograde contrast study, but nothing further was done to make a diagnosis or to treat her. There was no one there familiar with her pouch, so she flew from her home in [place] to our emergency room because of our expertise with the Ramos continent ileostomy pouch. The patient has not had any incontinence of stool or gas despite going a prolonged period of time without attempting her pouch. She has limited her oral intake. MEDICATIONS: Metoprolol and Prozac. ALLERGIES: Penicillin and erythromycin cause hives. OPERATIONS: In addition to her surgery for ulcerative colitis including total colectomy with J-pouch followed by resection of failed J-pouch, the patient has undergone cholecystectomy in January 2017 and in 2007 augmentation mammoplasty. REVIEW OF SYSTEMS: The patient has a neurogenic bladder ever since her J-pouch surgery in 2008. Currently, she does void spontaneously, but 1 to 2 times daily she catheterizes her bladder to fully empty it. She has had recurrent urinary tract infections. PHYSICAL EXAMINATION: GENERAL: The patient is 5 feet 4 inches, 130 pounds. VITAL SIGNS: Within normal limits. HEENT: Within normal limits. LUNGS: Clear. HEART: Regular rhythm. BREASTS: With bilateral implants. ABDOMEN: Soft with a long midline scar. The stoma of her Ramos pouch is low in the right lower quadrant. The abdomen is soft, but is distended. The patient is uncomfortable. PELVIC: Per primary care physician. RECTAL: Status post proctectomy. EXTREMITIES: Without edema. NEUROLOGIC: Physiologic. ADDITIONAL INFORMATION: Admission laboratory studies show urinary tract infection on urinalysis. The patient was given Rocephin 1 g intravenously in the emergency room. She also required morphine intravenously in the emergency room. I was unable to insert a 28-Rwandan Terry catheter into the patient's continent ileostomy and was unable to insert a 26-Rwandan or 24-Rwandan Terry. I then took an 18-[place]wandan [place] Sump nasogastric tube and inserted into the stoma and with some manipulation was able to get it into the pouch itself evacuating thick fecal material. The catheter was secured with tape with dressing over the stoma and connected to medium intermittent suction and will require repeated flushing with normal saline by the nursing staff. IMPRESSION: 1. Small bowel obstruction due to Malfunctioning Ramos continent ileostomy with inability to catheterize to evacuate stool and gas. 2. History of ulcerative colitis. 3. History of neurogenic bladder requiring self-catheterization 1-2x daily 4. Hypertension. 5. STATUS POST MULTIPLE ABDOMINAL OPERATIONS: 5.1. Total colectomy with ileoanal J-pouch with diverting ileostomy in January 2009. 5.2. Resection of failed J-pouch with abdominoperineal proctectomy and April ileostomy in 2009. 5.3. Open cholecystectomy in January 2017. 5.4. Ramos continent intestinal reservoir continent ileostomy December 2017 PLAN: The patient will be maintained NPO with IV fluids and suction to her indwelling Ramos pouch catheter. Once she decompress, she will need to undergo endoscopy of her Ramos pouch and subsequent surgical revision based on the endoscopic findings. Brady Martinez M.D. DR: JACKELYN JOB#: [id number] CC: SHILOH
--- NOTE | 2019-05-04 19:22 | NUR ---
HAND-OFF: Report given to Francesca RAYGOZA, pt in stable condition. - During my shift pt was able to walk around the room with steady gait. - Ileostomy to suction draining well. pt is no complaining of n/v of cramping. I&O's Ileostomy: 525-80= 445ml urine: 550ml Oral intake: NPO
--- NOTE | 2019-05-04 19:43 | NUR ---
NURSE NOTES: Received patient awake in bed, able to make needs known, no c/o pain at this time, no s/s of acute distress. BCIR attached to intermittent suction, patent, patient tolerating well. IV access patent, running IVF maintenance, site asymptomatic.
[2019-05-04 20:00] VITALS: BP 117/71
[2019-05-04] MEDS: Zolpidem 5mg tab ORAL PRN (22:11)
[2019-05-05 04:00] VITALS: BP 115/73
[2019-05-05 06:09] LABS: BASOPHILS % (AUTO) 1.2 % (0.0-2.0); EOSINOPHILS % (AUTO) 1.3 % (0.0-3.0); HEMATOCRIT 37.7 % (37.0-47.0); HEMOGLOBIN 13.3 G/DL (12.0-16.0); MEAN CORPUSCULAR VOLUME 94 FL (80-99); MONOCYTES % (AUTO) 5.7 % (1.0-10.0); NEUTROPHILS % (AUTO) 67.9 % (45.0-75.0); PLATELET COUNT 245 K/UL (150-450); RED BLOOD COUNT 4.01 M/UL (4.20-5.40); RED CELL DISTRIBUTION WIDTH 10.6 % (11.6-14.8); WHITE BLOOD COUNT 6.3 K/UL (4.8-10.8)
[2019-05-05 06:22] LABS: ALANINE AMINOTRANSFERASE 25 U/L (12-78); ALBUMIN 3.4 G/DL (3.4-5.0); ALBUMIN/GLOBULIN RATIO 1.1 (1.0-2.7); ALKALINE PHOSPHATASE 36 U/L (46-116); ANION GAP 8 mmol/L (5-15); ASPARTATE AMINO TRANSFERASE 18 U/L (15-37); BILIRUBIN,TOTAL 0.4 MG/DL (0.2-1.0); BLOOD UREA NITROGEN 5 mg/dL (7-18); CALCIUM 8.5 MG/DL (8.5-10.1); CARBON DIOXIDE 27 MMOL/L (21-32); CHLORIDE 106 MMOL/L (98-107); CREATININE 0.7 MG/DL (0.55-1.30); POTASSIUM 3.6 MMOL/L (3.5-5.1); SODIUM 141 MMOL/L (136-145)
[2019-05-05] MEDS ORDERED: Lidocaine 1% Plain 30 ml INJ ONE (07:00)
[2019-05-05] MEDS ORDERED: Heparin1,000 units/500ml Premix(Conc:2 units/ml) ONE (07:00)
[2019-05-05] MEDS: D5 1/2NS w/KCl 20mEq 1,000 ML IV SCH ×3 (07:03→23:29)
--- NOTE | 2019-05-05 07:26 | Pre-Procedure Note/Attestation ---
Pre-Procedure Note/Attestation Complete Prior to Procedure Planned Procedure: not applicable Procedure Narrative: Ramos continent ileostomy pouch endoscopy Indications for Procedure Pre-Operative Diagnosis: malfunctioning Ramos pouch with inability to intubate Attestation I attest that I discussed the nature of the procedure; its benefits; risks and complications; and alternatives (and the risks and benefits of such alternatives ), prior to the procedure, with the patient (or the patient's legal product representative). I attest that, if there was a reasonable possibility of needing a blood transfusion, the patient (or the patient's legal product representative) was given the [facility] standardized written summary, pursuant to the [place] Blood Safety Act ([place] Health and Safety Code # 1645, as amended). I attest that I re-evaluated the patient just prior to the surgery and that there has been no change in the patient's H&P, except as documented below: none Brady Martinez MD May 05, 2019 07:26
--- NOTE | 2019-05-05 07:34 | NUR ---
HAND-OFF: Report given to JARET Eduardo.
--- NOTE | 2019-05-05 07:45 | NUR ---
NURSE NOTES: Pt lying in bed w/bed in lowest position and call light within reach. Pt A&Ox4, VSS, and in no apparent distress. IV site intact/asymptomatic w/IVF infusing; ileo to mod/int suction; and dressing C/D/I. Pt taken down to GI lab for pouch endoscopy. Will continue to monitor.
[2019-05-05 08:00] VITALS: BP 142/88
[2019-05-05] MEDS ORDERED: Heparin1,000 units/500ml Premix(Conc:2 units/ml) IV PRN (08:15)
[2019-05-05] MEDS ORDERED: Lidocaine 1% Plain 30 ml INJ PRN (08:15)
--- NOTE | 2019-05-05 08:15 | Brief Operative Note ---
Immediate Post Operative Note Operative Note Pre-op Diagnosis: malfunctioning Ramos pouch with inability to intubate Procedure: Ramos pouch endoscopy Post-op Diagnosis: Redundant and angulated access segment, normal pouch and valve Post-op Diagnosis: same as pre-op Findings: consistent w/pre-op dx studies Surgeon: deanne Anesthesia: other - none Specimen: none Complications: none Condition: stable Fluids: none Estimated Blood Loss: none Drains: other - 28 Terry to Ramos Pouch Implant(s) used?: No Brady Martinez MD May 05, 2019 08:15
[2019-05-05] MEDS: cefTRIAXone 1 GM in D5W 55 ML IVPB SCH (09:02)
--- NOTE | 2019-05-05 10:30 | NUR ---
*-* INSURANCE *-* ALL AVAILABLE CLINICALS HAVE BEEN FAXED TO: [employer] CM: Briana Wilde ph# [phone] ext [phone] fax# [phone]
--- NOTE | 2019-05-05 10:51 | General Progress Note ---
Progress Note Progress Note doing well with 640c output from Ramos pouch with 18Fr catheter to suction Pouch endoscopy: elongated, angulated access segment, pouch and valve normal - 28Fr cardenas inserted after endoscopy to drainage Hgb 13.3 Albumin 3.4 Urine 880 BCIR ileo 640 Imp: Malfunctioning Ramos pouch with inability to intubate Plan: Laparotomy with revision Ramos pouch and stoma tomorrow IV antibiotics continue for UTI present on admission Brady Martinez MD May 05, 2019 10:51
--- NOTE | 2019-05-05 11:38 | NUR ---
RADIOLOGY NOTE: LEFT UPPER EXTREMITY PICC PLACED.
[2019-05-05] MEDS: Neomycin Sulfate 500mg Tab ORAL SCH ×3 (11:56→20:29)
[2019-05-05 12:00] VITALS: BP 135/90
[2019-05-05 12:45] LABS: APPEARANCE,URINE CLEAR; BILIRUBIN, URINE NEGATIVE (NEGATIVE); COLOR,URINE PALE YELLOW; GLUCOSE, URINE (UA) NEGATIVE (NEGATIVE); KETONES,URINE 1+ (NEGATIVE); LEUKOCYTE ESTERASE ,URINE 1+ (NEGATIVE); NITRITE,URINE NEGATIVE (NEGATIVE); PH,URINE 5 (4.5-8.0); PROTEIN,URINE NEGATIVE (NEGATIVE); UROBILINOGEN,URINE NORMAL MG/DL (0.0-1.0)
--- NOTE | 2019-05-05 14:20 | Anethesia Preoperative Eval ---
Anesthesia Pre-op PMH/ROS General Date of Evaluation: May 05, 2019 Time of Evaluation: 14:16 Anesthesiologist: Miladis ASA Score: ASA 2 Mallampati Score Class I : Soft palate, uvula, fauces, pillars visible Class II: Soft palate, uvula, fauces visible Class III: Soft palate, base of uvula visible Class IV: Only hard plate visible Mallampati Classification: Class II Surgeon: Michelle Diagnosis: Malfunctioning continent pouch Surgical Procedure: Revision of pouch Anesthesia History: PONV Family History: no anesthesia problems Allergies: Coded Allergies: ERYTHROMYCIN BASE (Verified Allergy, Intermediate, rash, 01/22/18) PENICILLINS (Verified Allergy, Intermediate, rash, hi9ves, 01/22/18) Patient NPO?: Yes NPO Date: May 05, 2019 NPO Time: 0000 Past Medical History Cardiovascular: Reports: HTN - well controled; Denies: CAD, AL, valve dz, arrhythmia, other Pulmonary: Denies: asthma, COPD, HIMA, other Gastrointestinal/Genitourinary: Reports: GERD, other - h/o UC s total colectomy ; Denies: CRI, ESRD Neurologic/Psychiatric: Reports: depression/anxiety; Denies: dementia, CVA, TIA, other Endocrine: Denies: DM, hypothyroidism, steroids, other HEENT: Denies: cataract (L), cataract (R), glaucoma, [place] (L), [place] (R), other Hematology/Immune: Denies: anemia, DVT, bleeding disorder, other Musculoskeletal/Integumentary: Denies: OA, RA, DJD, DDD, edema, other PMH Narrative: as above PSxH Narrative: see H&P Anesthesia Pre-op Phys. Exam Physician Exam Last Vital Signs Date Time Temp Pulse Resp B/P (MAP) Pulse Ox O2 Delivery O2 Flow Rate FiO2 05/05/19 12:00 98.2 79 18 135/90 (105) 100 05/05/19 09:00 Room Air Constitutional: NAD Neurologic: CN 2-12 intact Cardiovascular: RRR, no M/R/G Respiratory: CTA Gastrointestinal: S/NT/ND Airway Exam Mallampati Score: Class II MO: full Neck: flexible ROM: full Teeth: intact Dentures: no upper, no lower Anesthesia Pre-op A/P Labs Hematology Test 05/05/19 04:50 White Blood Count 6.3 K/UL (4.8-10.8) Red Blood Count 4.01 M/UL (4.20-5.40) L Hemoglobin 13.3 G/DL (12.0-16.0) Hematocrit 37.7 % (37.0-47.0) Mean Corpuscular Volume 94 FL (80-99) Mean Corpuscular Hemoglobin 33.2 PG (27.0-31.0) H Mean Corpuscular Hemoglobin Concent 35.4 G/DL (32.0-36.0) Red Cell Distribution Width 10.6 % (11.6-14.8) L Platelet Count 245 K/UL (150-450) Mean Platelet Volume 4.1 FL (6.5-10.1) L Neutrophils (%) (Auto) 67.9 % (45.0-75.0) Lymphocytes (%) (Auto) 24.0 % (20.0-45.0) Monocytes (%) (Auto) 5.7 % (1.0-10.0) Eosinophils (%) (Auto) 1.3 % (0.0-3.0) Basophils (%) (Auto) 1.2 % (0.0-2.0) Coagulation Test 05/05/19 04:50 Prothrombin Time 10.3 SEC (9.30-11.50) Prothromb Time International Ratio 1.0 (0.9-1.1) Chemistry Test 05/05/19 04:50 Sodium Level 141 MMOL/L (136-145) Potassium Level 3.6 MMOL/L (3.5-5.1) Chloride Level 106 MMOL/L (98-107) Carbon Dioxide Level 27 MMOL/L (21-32) Anion Gap 8 mmol/L (5-15) Blood Urea Nitrogen 5 mg/dL (7-18) L Creatinine 0.7 MG/DL (0.55-1.30) Estimat Glomerular Filtration Rate > 60 mL/min (>60) Glucose Level 96 MG/DL (74-106) Calcium Level 8.5 MG/DL (8.5-10.1) Total Bilirubin 0.4 MG/DL (0.2-1.0) Aspartate Amino Transf (AST/SGOT) 18 U/L (15-37) Alanine Aminotransferase (ALT/SGPT) 25 U/L (12-78) Alkaline Phosphatase 36 U/L (46-116) L Total Protein 6.6 G/DL (6.4-8.2) Albumin 3.4 G/DL (3.4-5.0) Globulin 3.2 g/dL Albumin/Globulin Ratio 1.1 (1.0-2.7) Studies Pre-op Studies: EKG - NSR Risk Assessment & Plan Assessment: ASA 2 Plan: Ga with ETT PONV prevention Status Change Before Surgery: No Pre-Antibiotics Drug: as scheduled Jaiden Redding MD May 05, 2019 14:20
--- NOTE | 2019-05-05 15:00 | Procedure Note ---
DATE OF PROCEDURE: 05/05/2019 ENDOSCOPY PROCEDURE REPORT ENDOSCOPIST: Brady Martinez M.D. ANESTHESIA: None. SEDATION: None. PRE-ENDOSCOPY DIAGNOSES: 1. 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 2. History of ulcerative colitis. 3. Status post proctocolectomy including resection of failed J-pouch and creation subsequently of Ramos continent ileostomy. POST-ENDOSCOPY DIAGNOSES: 1. 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 2. History of ulcerative colitis. 3. Status post proctocolectomy including resection of failed J-pouch and creation subsequently of Ramos continent ileostomy. ENDOSCOPY PERFORMED: Ramos continent ileostomy pouch endoscopy. FINDINGS: An elongated and angulated access segment with the distance from the stoma orifice to the tip of the valve at 12 cm, which in this patient should be approximately 7 cm. The pouch was normal and distensible and retroflexed views revealed the valve to be well formed circumferentially. DESCRIPTION OF PROCEDURE: The patient was positioned supine in the GI lab and the indwelling 18-[place] Zanoni Sump nasogastric tube that I have put through the stoma into her Ramos pouch after she was admitted was removed. Using a GIF-P140 endoscope, the stoma was entered and the access segment negotiated until the pouch was entered without too much difficulty. The above findings were observed. The endoscope was removed and then I was able to fairly readily insert a 28-[place] Terry catheter into the pouch to decompress it. It was taped to the skin and connected to a gravity drainage bag with dressing placed over the stoma. The patient will require laparotomy and revision of the stoma in depth to correct her inability to catheterize her pouch and evacuate stool. She tolerated the endoscopy well. Brady Martinez M.D. DR: JACKELYN JOB#: [id number] CC:
--- NOTE | 2019-05-05 15:34 | Diagnostic Imaging Report ---
Indication: watermelon inspector venous access Findings: After the indications, procedure, risks, complications, and alternatives of the procedure were explained, written informed consent was obtained. The left upper extremity was prepped with alcohol. All elements of maximal sterile barrier technique were followed including usage of a cap, mask, sterile gown, sterile gloves, hand hygiene and a large sterile sheet. Sonographic evaluation of the upper extremity was performed demonstrating a patent and compressible basilic vein. Access was obtained under real-time ultrasound guidance (with utilization of sterile gel and sterile probe cover) and digital image was saved and archived. An .018 wire was introduced. Needle exchanged for a 5 Malay peel-away sheath. Measurements were obtained. A 5 Malay dual-lumen Power PICC line catheter was cut to 40 cm and introduced over the wire. Peel-away sheath and wire were removed.Catheter was secured to the skin using 2-0 Prolene suture. Both ports aspirate and flush easily. A single fluoroscopic image shows the distal tip in the superior vena cava. Total fluoroscopic time: 38.6 seconds. Impression: Successful placement of an upper extremity PICC line catheter
[2019-05-05 16:00] VITALS: BP 151/99
--- NOTE | 2019-05-05 16:33 | NUR ---
CASE MANAGEMENT: INITIAL REVIEW 38YR OLD FEMALE FROM HOME CC:GASTROINTESTINAL ILLNESS SI:MALFUNCTION ROBLEDO POUCH 97.6 85 16 126/84 95% ON RA ALK-PHOS 44 IS:IVF NS BOLUS X1 IV ROCEPHIN X1 IV MORPHINE SULFATE X2 IV ZOFRAN X1 \: 3E MED SURG UNIT CASE MANAGEMENT: REVIEW 05/04/19 SI:MALFUNCTION ROBLEDO CONTINENT ILEOSTOMY WITH INABILITY TO CATHETERIZE TO EVACUATE STOOL 97.8 75 20 124/78 99% ON RA CL-108 CA+ 8.3 IS:IV ROCEPHIN QD NEOMYCIN SULFATE PO TID X3 DOSES IV D5@100ML/HR \: 3E MED SURG UNIT PLAN: ENDOSCOPY OF ROBLEDO POUCH PICC LINE IN AM CASE MANAGEMENT: REVIEW 05/05/19 SI:MALFUNCTION ROBLEDO CONTINENT ILEOSTOMY WITH INABILITY TO CATHETERIZE TO EVACUATE STOOL 98.3 74 18 151/99 100% ON RA BUN 5 IS:IV ROCEPHIN QD NEOMYCIN SULFATE PO TID X3 DOSES IV D5@100ML/HR \: 3E MED SURG UNIT PLAN: LAPAROTOMY AND REVISION OF THE STOMA ENDOSCOPY OF ROBLEDO POUCH TODAY PICC LINE PLACED Addendum: 05/06/19 at 1331 by PAULA GUSTAFSON LVN INTERQUAL
--- NOTE | 2019-05-05 19:20 | NUR ---
NURSE NOTES: Received patient in bed. Awake, A/O x4. On room air, respirations unlabored. Patient denies pain at this time. PICC line in the Left upper arm, dry dressing intact, running D5 1/2 NS 20 KCl at 100 mL/hr. Ileostomy draining to gravity.
--- NOTE | 2019-05-05 19:27 | NUR ---
HAND-OFF: Report given to JARET Gtz.
[2019-05-05 20:00] VITALS: BP 129/81
[2019-05-05] MEDS: Dyna-Hex 2% Top Sol 2oz TOPIC SCH (20:29)
[2019-05-05] MEDS: Zolpidem 5mg tab ORAL PRN (20:29)
[2019-05-05 23:36] VITALS: BP 124/75
[2019-05-06] VITALS (16 sets, daily range): BP systolic 83–136; BP diastolic 46–92
--- NOTE | 2019-05-06 07:05 | NUR ---
NURSE NOTES: Received report from out-going nurse, patient is sitting in a chair awake and cheerful. Respiration is even and unlabored on room air. NATALI PICC line in-place; fluids infusing properly. No acute distress noted. patient denies any pain at this time. Bedside table and call light is within reach, will continue to follow plan of care.
--- NOTE | 2019-05-06 07:22 | NUR ---
HAND-OFF: Report given to Jayce RAYGOZA.
--- NOTE | 2019-05-06 07:41 | Pre-Procedure Note/Attestation ---
Pre-Procedure Note/Attestation Complete Prior to Procedure Planned Procedure: not applicable Procedure Narrative: Revision Ramos continent ileostomy pouch and stoma Indications for Procedure Pre-Operative Diagnosis: malfunctioning Ramos pouch with inability to intubate Attestation I attest that I discussed the nature of the procedure; its benefits; risks and complications; and alternatives (and the risks and benefits of such alternatives ), prior to the procedure, with the patient (or the patient's legal technical services representative). I attest that, if there was a reasonable possibility of needing a blood transfusion, the patient (or the patient's legal technical services representative) was given the [facility] standardized written summary, pursuant to the [place] Blood Safety Act ([place] Health and Safety Code # 1645, as amended). I attest that I re-evaluated the patient just prior to the surgery and that there has been no change in the patient's H&P, except as documented below:none Brady Martinez MD May 06, 2019 07:41
[2019-05-06] MEDS: cefTRIAXone 1 GM in D5W 55 ML IVPB SCH (08:14)
--- NOTE | 2019-05-06 09:51 | NUR ---
*-* INSURANCE *-* ALL AVAILABLE CLINICALS HAVE BEEN FAXED TO: [employer] [facility] CM: Briana Wilde ph# [phone] ext [phone] fax# [phone]
--- NOTE | 2019-05-06 10:00 | NUR ---
CASE MANAGEMENT: REVIEW 05/06/19 SI:SP ENDOSCOPY OF BOWEL POUCH MALFUNCTION ROBLEDO CONTINENT ILEOSTOMY WITH INABILITY TO CATHETERIZE TO EVACUATE STOOL 98.5 70 16 136/92 100% ON RA IS:IN SURGERY NOW FOR REVISION OF ROBLEDO POUCH IV ROCEPHIN QD IV FLAGYL Q6HR IV D5@100ML/HR PROZAC PO QD GREGORIO-HEX TP QD TYLENOL PO Q4HR/PRN \: 3E MED SURG UNIT PLAN: IN SURGERY NOW
[2019-05-06] MEDS ORDERED: Bacitracin 50000 Units Vial ONE (11:36)
[2019-05-06] MEDS ORDERED: NeoSporin Gu Irrig 1ml Amp IRRIG ONE (11:36)
[2019-05-06] MEDS ORDERED: Rocuronium Bromide 50mg/5ml Inj IV ONE (11:51)
[2019-05-06] MEDS ORDERED: Sodium Chloride 10ml vial INJ ONE (11:56)
[2019-05-06] MEDS ORDERED: Lidocaine 1% MPF 10mg/ml 5ml ONE (11:56)
[2019-05-06] MEDS ORDERED: Dexamethasone 4mg/ml vial ONE (11:56)
[2019-05-06] MEDS ORDERED: Propofol 200mg/20ml IV ONE (11:57)
[2019-05-06] MEDS ORDERED: Lidocaine 1% Plain 30 ml INJ ONE (11:57)
[2019-05-06] MEDS ORDERED: fentaNYL 100 mcg/2 mL IV ONE (11:58)
[2019-05-06] MEDS ORDERED: Sterile Water Irrig 1000ml IRRIG ONE (12:00)
[2019-05-06] MEDS ORDERED: LR 1000ml ONE (12:00)
[2019-05-06] MEDS ORDERED: NS Irrig 2000ml IRRIG ONE (12:08)
[2019-05-06] MEDS ORDERED: NS Irrig 1000ml IRRIG ONE ×3 (12:08→12:50)
[2019-05-06] MEDS ORDERED: LR 1000ml 1,000 ML IVLG SCH (12:42)
[2019-05-06] MEDS ORDERED: oxyCODONE HCL/Acetaminophen 5/325mg ORAL PRN (12:45)
[2019-05-06] MEDS ORDERED: Labetalol 5mg/ml 20ml vial IV PRN (12:45)
[2019-05-06] MEDS ORDERED: fentaNYL 100 mcg/2 mL IV PRN (12:45)
[2019-05-06] MEDS ORDERED: Acetaminophen (Non formulary) 100 ML IV ONE (12:45)
[2019-05-06] MEDS ORDERED: LORazepam Inj 2mg/ml 1ml IV PRN (12:45)
[2019-05-06] MEDS ORDERED: DiphenhydrAMINE 50mg/ml Inj IVP PRN ×2 (12:45→13:30)
[2019-05-06] MEDS ORDERED: Hydromorphone 0.5mg/0.5ml inj IVP PRN (12:45)
[2019-05-06] MEDS ORDERED: Atropine Sulfate 0.4mg/ml inj IVP PRN (12:45)
[2019-05-06] MEDS ORDERED: HYDROcodone/Acetamin 5/325 tab ORAL PRN (12:45)
[2019-05-06] MEDS ORDERED: Ketorolac 30mg Inj IV PRN ×2 (12:45)
[2019-05-06] MEDS ORDERED: HYDROcodone/Acetamin 7.5/325 tab ORAL PRN (12:45)
[2019-05-06] MEDS ORDERED: Midazolam 2mg/2ml Inj IVP PRN (12:45)
[2019-05-06] MEDS ORDERED: Glycopyrrolate 0.2mg/ml 1ml Vial ONE (12:59)
[2019-05-06] MEDS ORDERED: Neostigmine 1mg/ml 10ml Inj ONE (12:59)
[2019-05-06] MEDS ORDERED: PCA Education Pamphlet MISC ONE (13:30)
[2019-05-06] MEDS ORDERED: Naloxone 0.4mg/ml Inj IVP PRN (13:30)
[2019-05-06] MEDS ORDERED: Rate Change PCA 1 Each MISC PRN (13:30)
--- NOTE | 2019-05-06 13:34 | Brief Operative Note ---
Immediate Post Operative Note Operative Note Pre-op Diagnosis: malfunctioning Ramos continent ileostomy with inability to intubate Procedure: laparotomy with revision Ramos continent ileostomy access segment and stoma Post-op Diagnosis: malfunctioning Ramos Continent ileostomy Post-op Diagnosis: same as pre-op Findings: consistent w/pre-op dx studies Surgeon: deanne Sales Service Coordinator: leora Anesthesiologist: kinjal Anesthesia: general Specimen: yes - stoma and access segment Complications: none Condition: unstable Fluids: see anesthesia record Estimated Blood Loss: minimal Drains: other - 28 Terry to Ramos pouch Implant(s) used?: No Brady Martinez MD May 06, 2019 13:34
--- NOTE | 2019-05-06 13:36 | Immediate Post-Op Evaluation ---
Immediate Post-Op Evalulation Immediate Post-Op Evalulation Procedure: Revision Ramos Continent Ileostomy Pouch and Stoma Date of Evaluation: May 06, 2019 Time of Evaluation: 13:49 IV Fluids: 200 LR Blood Products: 0 Estimated Blood Loss: 50 Urinary Output: 0 Blood Pressure Systolic: 107 Blood Pressure Diastolic: 75 Pulse Rate: 82 Respiratory Rate: 16 O2 Sat by Pulse Oximetry: 100 Temperature (Fahrenheit): 98.2 Pain Score (1-10): 2 Nausea: No Vomiting: No Complications 0 Patient Status: awake, reacts, patent, extubated, none Hydration Status: adequate Drug: Flagyl 500 mg Given Within 1 Hr of Incision: Yes Time Given: 11:59 Gabe Warren MD May 06, 2019 13:36
[2019-05-06] MEDS: PCA Morphine 1mg/ml 30 ML IV PRN ×2 (14:05→18:44)
[2019-05-06] MEDS ORDERED: NS Irrig 1000ml ONE (14:37)
[2019-05-06] MEDS ORDERED: Ketorolac 30mg Inj IV SCH (15:11)
[2019-05-06] MEDS: D5 1/2NS w/KCl 20mEq 1,000 ML IV SCH ×2 (15:22→23:09)
--- NOTE | 2019-05-06 17:15 | Operative Note - Dictated ---
DATE OF OPERATION: 05/06/2019 SURGEON: Brady Martinez M.D. COMFORT FILLER: Jarvis Duong M.D. ANESTHESIOLOGIST: Gabe Warren M.D. TYPE OF ANESTHESIA: General endotracheal. PREOPERATIVE DIAGNOSES: 1. 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 History of ulcerative colitis. 3. STATUS POST MULTIPLE ABDOMINAL OPERATIONS: 4. 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 5. Resection of failed J-pouch with abdominoperineal proctectomy and creation of April ileostomy 2009. 6. Open cholecystectomy in January 2017. 7. Ramos continent intestinal reservoir continent ileostomy December 2017 POSTOPERATIVE DIAGNOSES: 1. 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 History of ulcerative colitis. 3. STATUS POST MULTIPLE ABDOMINAL OPERATIONS: 4. 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 5. Resection of failed J-pouch with abdominoperineal proctectomy and creation of April ileostomy 2009. 6. Open cholecystectomy in January 2017. 7. Ramos continent intestinal reservoir continent ileostomy December 2017 OPERATION PERFORMED: Laparotomy with revision of Ramos continent ileostomy stoma and access segment. DESCRIPTION OF PROCEDURE: The patient was taken to the operating room and under general anesthesia with sequential compression device stockings and Terry catheter in place, she was prepped and draped in usual fashion. Previous midline incision was reopened from umbilicus to pubis. There were slight adhesions to the anterior abdominal wall, but the rest of the abdominal cavity was free of adhesions. The pouch was readily elevated out of the pelvis. A 28-Ugandan Terry was placed through the stoma low in the right lower quadrant and manipulated into the pouch. It was clear the access segment was quite redundant causing angulation and inability to catheterize. The afferent bowel was manually occluded and the pouch distended with 500 mL of saline. The catheter was removed and there was no incontinence at all. The catheter was reintroduced and the pouch decompressed. With a transversely oriented elliptical incision, the stoma was mobilized through the abdominal wall and brought into the abdomen. The redundancy was approximately 6 cm. Now the access segment and stoma was brought through the same abdominal wall hiatus with the pouch snug against the abdominal wall. Redundant access segment was excised and the mesentery divided just above the skin ligating with 2-0 Vicryl with the stump reduced below the skin. Now, the stoma was primarily matured with continuous 2-0 chromic locking suture taking full-thickness sutures continuous locking suture starting at the 3 and 9 o'clock position. A very satisfactory stoma was achieved. The 28-Ugandan Terry catheter was positioned with the tip in the apex of the pouch and the pouch lay transversely down into the pelvis. The bowel loops were placed anatomically. The ileostomy pouch catheter was sutured to the skin with two sutures of 2-0 silk. It was flushed and connected to gravity drainage bag. Throughout the procedure, antibiotic soaked laps have been used to protect the abdominal wall. The midline incision was closed in one layer with continuous #1 looped PDS. Additional antibiotic irrigation was utilized and skin closed with rivera. Dry sterile dressings were applied. Final sponge and counts were correct. The patient tolerated the procedure well and left the operating room in good condition. Brady Martinez M.D. DR: Jonathan JOB#: [id number] CC: SHILOH
[2019-05-06] MEDS: PCA shift volume MISC SCH (19:00)
--- NOTE | 2019-05-06 19:36 | NUR ---
HAND-OFF: Report given to JARET Gtz.
--- NOTE | 2019-05-06 19:37 | NUR ---
NURSE NOTES: Received report & pt from JARET Eduardo. Pt lying in bed, a&ox4, in O2 via NC @ 2LPM. No s/s of acute distress & no c/o pain. Ileo cath intact & connected to drainage bag. Terry cath intact & draining yellow urine to gravity. Surgical dressing C/D/I. NATALI Picc line intact with IVF running as ordered. SKEIN WINDING OPERATOR setting checked. Plan of care discussed.
[2019-05-06] MEDS: Dyna-Hex 2% Top Sol 2oz TOPIC SCH (20:33)
[2019-05-07] VITALS: BP 112/71
[2019-05-07] MEDS: PCA Morphine 1mg/ml 30 ML IV PRN ×2 (03:50→11:47)
[2019-05-07 04:00] VITALS: BP 109/72
[2019-05-07 05:30] LABS: BASOPHILS % (AUTO) 0.8 % (0.0-2.0); EOSINOPHILS % (AUTO) 0.1 % (0.0-3.0); HEMATOCRIT 32.7 % (37.0-47.0); HEMOGLOBIN 11.7 G/DL (12.0-16.0); LYMPHOCYTES % (AUTO) 10.5 % (20.0-45.0); MEAN CORPUSCULAR VOLUME 92 FL (80-99); NEUTROPHILS % (AUTO) 82.7 % (45.0-75.0); PLATELET COUNT 211 K/UL (150-450); RED BLOOD COUNT 3.54 M/UL (4.20-5.40); RED CELL DISTRIBUTION WIDTH 10.5 % (11.6-14.8); WHITE BLOOD COUNT 12.9 K/UL (4.8-10.8)
[2019-05-07 05:46] LABS: ANION GAP 5 mmol/L (5-15); BLOOD UREA NITROGEN 5 mg/dL (7-18); CALCIUM 7.9 MG/DL (8.5-10.1); CARBON DIOXIDE 28 MMOL/L (21-32); CHLORIDE 108 MMOL/L (98-107); CREATININE 0.6 MG/DL (0.55-1.30); POTASSIUM 4.3 MMOL/L (3.5-5.1); SODIUM 141 MMOL/L (136-145)
[2019-05-07] MEDS: PCA shift volume MISC SCH ×2 (07:00→19:02)
--- NOTE | 2019-05-07 07:30 | NUR ---
HAND-OFF: Report given to JARET Herrera.
--- NOTE | 2019-05-07 07:30 | NUR ---
NURSE NOTES: Patient is in bed awake and able to verbalize needs. Stable. Denies pain or SOB. Ileo draining to bag, will flush q3h and PRN. PICC patent and running IVF as ordered. F/C in place and draining yellow urine. Surgical dressing is c/d/i. Patient is in bed in locked and lowest position with call light within reach. All needs met at this time. Will continue to monitor.
[2019-05-07 08:00] VITALS: BP 132/79
[2019-05-07] MEDS: cefTRIAXone 1 GM in D5W 55 ML IVPB SCH (08:36)
[2019-05-07] MEDS: D5 1/2NS w/KCl 20mEq 1,000 ML IV SCH ×3 (08:40→22:07)
--- NOTE | 2019-05-07 09:18 | General Progress Note ---
Progress Note Progress Note AVSS Comfortable with MS INDIAN NANNY and Toradol prn Chest clear Cor reg rhythm Abdomen mild soft distention, incision clean ,stoma pink with slight edema Urine 1500 BCIR ileo - small amount enteric fluid WBC 12,900 Hgb 11.7 BMP-ok Urine at admission: Klebsiella sens to ceftriaxone - f/u U/A clear Imp: Ileus Plan: NPO, continue cardenas (history of neurogenic bladder req. self-cath 2- 3xdailhy Mobilize d/c basal infusion of INDIAN NANNY Brady Martinez MD May 07, 2019 09:18
[2019-05-07] MEDS ORDERED: Rate Change PCA 1 Each MISC PRN (09:30)
[2019-05-07] MEDS ORDERED: PCA Morphine 1mg/ml 30 ML IV PRN (09:30)
[2019-05-07] MEDS ORDERED: DiphenhydrAMINE 50mg/ml Inj IVP PRN (09:30)
[2019-05-07] MEDS ORDERED: Naloxone 0.4mg/ml Inj IVP PRN (09:30)
--- NOTE | 2019-05-07 09:39 | 48 Hour Post Anesthesia Eval ---
Post Anesthesia Evaluation Procedure: Revision Ramos Continent Ileostomy Pouch and Stoma Date of Evaluation: May 07, 2019 Time of Evaluation: 09:38 Blood Pressure Systolic: 109 0: 70 Pulse Rate: 68 Respiratory Rate: 16 Temperature (Fahrenheit): 98 O2 Sat by Pulse Oximetry: 100 Airway: patent Nausea: No Vomiting: No Pain Intensity: 2 Hydration Status: adequate Cardiopulmonary Status: Stable Mental Status/LOC: patient returned to baseline Follow-up Care/Observations: 0 Post-Anesthesia Complications: 0 Follow-up care needed: N/A Gabe Warren MD May 07, 2019 09:39
[2019-05-07 12:00] VITALS: BP 95/61
[2019-05-07] MEDS: Ketorolac 30mg Inj IV PRN (13:25)
--- NOTE | 2019-05-07 13:48 | NUR ---
CASE MANAGEMENT: REVIEW 05/07/19 SI:S/P ENDOSCOPY OF BOWEL POUCH MALFUNCTION ROBLEDO CONTINENT ILEOSTOMY WITH INABILITY TO CATHETERIZE TO EVACUATE STOOL 98.4 94 18 95/61 94% ON RA WBC 12.9 H/H 11.7/32.7 CL-108 BUN 5 BG 112 CA+ 7.9 IS:IV ROCEPHIN QD IV D5@100ML/HR PROZAC PO QD GREGORIO-HEX TP QD IV TORADOL Q6HR/PRN IV MORPHINE SULFATE Q24HR \: 3E MED SURG UNIT PLAN: NPO CONT COLE CARE DC ALLIANCE MANAGER URINE CX (+) KLEBSIELLA PNEUMONIAE AMBULATE BID
[2019-05-07 16:00] VITALS: BP 133/90
[2019-05-07] MEDS ORDERED: MICONAZOLE VAGIN PRN (18:30)
--- NOTE | 2019-05-07 19:12 | NUR ---
NURSE NOTES: True ileo: -30cc dark brown liquid output. UO: 550cc dark kalpana urine. Patient is in good spirits.
--- NOTE | 2019-05-07 19:17 | NUR ---
HAND-OFF: Report given to Mika RAYGOZA. Patient is stable.
--- NOTE | 2019-05-07 19:19 | NUR ---
NURSE NOTES: Received report from Sharon RAYGOZA. Rounding is done with outgoing nurse. Patient is in bed, awake, and a/ox4. Patient is able to known her needs. Denied pain or any distress. Ileo draining to gravity. Dressing on abdomen is c/d/i. PICC line is patent and running IVF as ordered. F/C IN Place and draining gravity with yellow urine. Bed is on alarm, locked, and Lowest position. Call light within reach. Will continue to monitor.
[2019-05-07 20:00] VITALS: BP 114/76
[2019-05-07] MEDS ORDERED: Fluconazole 150mg tab ORAL SCH (20:00)
[2019-05-07] MEDS: Dyna-Hex 2% Top Sol 2oz TOPIC SCH (20:50)
[2019-05-07] MEDS: Zolpidem 5mg tab ORAL PRN (20:51)
[2019-05-08] VITALS: BP 111/75
[2019-05-08] MEDS: Ketorolac 30mg Inj IV PRN ×2 (01:59→12:06)
[2019-05-08 04:00] VITALS: BP 124/97
[2019-05-08] MEDS: PCA Morphine 1mg/ml 30 ML IV PRN ×2 (04:28→16:56)
--- NOTE | 2019-05-08 04:37 | NUR ---
NURSE NOTES: SENIOR DATA ARCHITECT syringe emptied and changed syringe, Morphine 28.1 ml
[2019-05-08] MEDS: D5 1/2NS w/KCl 20mEq 1,000 ML IV SCH ×2 (06:07→16:42)
[2019-05-08 06:10] LABS: BASOPHILS % (AUTO) 0.9 % (0.0-2.0); HEMATOCRIT 30.2 % (37.0-47.0); HEMOGLOBIN 10.9 G/DL (12.0-16.0); LYMPHOCYTES % (AUTO) 22.5 % (20.0-45.0); MEAN CORPUSCULAR VOLUME 94 FL (80-99); MONOCYTES % (AUTO) 8.4 % (1.0-10.0); NEUTROPHILS % (AUTO) 67.3 % (45.0-75.0); PLATELET COUNT 167 K/UL (150-450); RED BLOOD COUNT 3.22 M/UL (4.20-5.40); RED CELL DISTRIBUTION WIDTH 10.7 % (11.6-14.8); WHITE BLOOD COUNT 9.1 K/UL (4.8-10.8)
[2019-05-08 06:52] LABS: ANION GAP 3 mmol/L (5-15); BLOOD UREA NITROGEN 3 mg/dL (7-18); CALCIUM 8.1 MG/DL (8.5-10.1); CARBON DIOXIDE 30 MMOL/L (21-32); CHLORIDE 107 MMOL/L (98-107); CREATININE 0.5 MG/DL (0.55-1.30); POTASSIUM 3.9 MMOL/L (3.5-5.1); SODIUM 140 MMOL/L (136-145)
[2019-05-08] MEDS: PCA shift volume MISC SCH ×2 (07:13→19:00)
--- NOTE | 2019-05-08 07:14 | NUR ---
NURSE NOTES: Report received from Mika RAYGOZA, rounds made. Patient resting in semi-fowlers position in bed. No distress on RA. NATALI PICC dressing CDI, site asymptomatic, IV D5 1/2 +20 KCL at 100 ml with BUSHING AND BROACH OPERATOR Morphine connected 1 mg bolus, every 6 mins, 26 mg/4hr. Abdominal pain 4/10, tolerable, denies need for breakthrough medication. RLQ ileostomy in place, dressing CDI, draining dark green output to gravity. FC patent, draining light orange clear urine to gravity. Bilateral SCDs off. Call light in reach, bed in lowest position, will continue to monitor.
--- NOTE | 2019-05-08 07:25 | NUR ---
HAND-OFF: Report given to Karmen RAYGOZA. Patient in stable condition.
[2019-05-08 07:40] LABS: % IRON SATURATION 12 % (15-50); IRON 24 ug/dL (50-175); TOTAL IRON BINDING CAPACITY 197 ug/dL (250-450)
[2019-05-08 08:00] VITALS: BP 127/92
--- NOTE | 2019-05-08 08:14 | NUR ---
CASE MANAGEMENT: REVIEW 05/08/19 SI:S/P ENDOSCOPY OF BOWEL POUCH MALFUNCTION ROBLEDO CONTINENT ILEOSTOMY WITH INABILITY TO CATHETERIZE TO EVACUATE STOOL 98.5 96 17 124/97 99% ON RA H/H 10.9/30.2 BUN 3 ANION GAP 3 CA+ 8.1 IRON 24 TIBC 197 %SAT 12 IS:IV ROCEPHIN QD IV D5@100ML/HR PROZAC PO QD GREGORIO-HEX TP QD NIPPING MACHINE OPERATOR MORPHINE SULFATE BID IV TORADOL Q6HR/PRN MONISTAT VG QD/PRN \: 3E MED SURG UNIT PLAN: AWAITING MD NOTES NPO CONTROL PAIN CONT COLE CARE URINE CX (+) KLEBSIELLA PNEUMONIAE AMBULATE BID WITH ASSISTANCE ENCOURAGE INCENTIVE SPIROMETER Addendum: 05/08/19 at 0843 by PAULA GUSTAFSON LVN CASE MANAGEMENT: REVIEW 05/08/19 SI:S/P REVISION ROBLEDO POUCH (05/08/19) S/P ENDOSCOPY OF BOWEL POUCH (05/05/19) MALFUNCTION ROBLEDO CONTINENT ILEOSTOMY WITH INABILITY TO CATHETERIZE TO EVACUATE STOOL 98.5 96 17 124/97 99% ON RA H/H 10.9/30.2 BUN 3 ANION GAP 3 CA+ 8.1 IRON 24 TIBC 197 %SAT 12 IS:IV ROCEPHIN QD IV D5@100ML/HR PROZAC PO QD GREGORIO-HEX TP QD NIPPING MACHINE OPERATOR MORPHINE SULFATE BID IV TORADOL Q6HR/PRN MONISTAT VG QD/PRN \: 3E MED SURG UNIT PLAN: AWAITING NOTES NPO CONTROL PAIN CONT COLE CARE URINE CX (+) KLEBSIELLA PNEUMONIAE AMBULATE BID WITH ASSISTANCE ENCOURAGE INCENTIVE SPIROMETER
[2019-05-08] MEDS: cefTRIAXone 1 GM in D5W 55 ML IVPB SCH (09:05)
[2019-05-08] MEDS: Metoprolol Succinate XL 25mg tab ORAL SCH (09:06)
--- NOTE | 2019-05-08 09:28 | NUR ---
NURSE NOTES: Patient up in chair. Encouraged IS, demonstrated correctly, verbalized understanding to perform 10x/hr. Will continue to monitor.
[2019-05-08] MEDS ORDERED: Rate Change PCA 1 Each MISC PRN (11:30)
[2019-05-08] MEDS ORDERED: Naloxone 0.4mg/ml Inj IVP PRN (11:30)
--- NOTE | 2019-05-08 11:39 | General Progress Note ---
Progress Note Progress Note AVSS doing well with ambulation and service station operator Abdomen soft, mild ecchymosis lower abdomen, stoma pink Urine 1050 BCIR ileo nil but now draining enteric fluid WBC down 9100 Hgb 10.9 BMP - ok Iron 24 B12 and folic acid ok Imp: ileus Severe iron deficiency Plan: continue npo and cardenas (neurogenic bladder) Brady Lea MD May 08, 2019 11:39
[2019-05-08 12:00] VITALS: BP 130/85
[2019-05-08] MEDS: Iron Sucrose 200 MG in NS 110 ML IV SCH (13:50)
[2019-05-08] MEDS ORDERED: DiphenhydrAMINE 50mg/ml Inj IVP PRN ×2 (14:10→15:30)
--- NOTE | 2019-05-08 14:24 | NUR ---
RD ASSESSMENT & RECOMMENDATIONS SEE CARE ACTIVITY FOR COMPLETE ASSESSMENT DAILY ESTIMATED NEEDS: Needs based on Surgery 58.6kg 25-35 kcals/kg 7694-5527 total kcals 1-2 g protein/kg 59-117 g total protein 25-30 mL/kg 8263-1934 total fluid mLs NUTRITION DIAGNOSIS: Altered GI fxn r/t malfunctioning ileostomy, as evidenced by pt adm w/ inability to intubate continent ileo, now s/p surgical revision, ileus, NPO. CURRENT DIET:NPO PO DIET RECOMMENDATIONS: As per MD ADDITIONAL RECOMMENDATIONS: * Obtain weekly wts/ standing preferred if able * Add ensure clear TID w/ CLD * Monitor NPO status, ileus, need for TPN .
[2019-05-08 16:00] VITALS: BP 128/90
--- NOTE | 2019-05-08 16:26 | NUR ---
*-* INSURANCE *-* ALL AVAILABLE CLINICALS HAVE BEEN FAXED TO: [facility] [employer] CM: Briana Wilde ph# [phone] ext [phone] fax# [phone]
--- NOTE | 2019-05-08 19:50 | NUR ---
HAND-OFF: Report given to Addie RAYGOZA, rounds made. Outputs: FC: 1125 ml Ileostomy: 20 ml
[2019-05-08 20:00] VITALS: BP 134/91
[2019-05-08] MEDS: Dyna-Hex 2% Top Sol 2oz TOPIC SCH (20:00)
--- NOTE | 2019-05-08 20:34 | NUR ---
NURSES NOTE: Met pt in bed, A/OX4, patient denies pain at the moment. Morphine BARROW WORKER HELPER pump infusing according to eMAR-effective. Denies need for breaK through pain meds. No outward s/s of distress noted. Breathing pattern is even and unlabored on 1999 VS within normal limits. Terry patent draining according to gravity. Abdomen dress clean dry intact. Ileo to be flushed q3h. All due meds will be given. Bed at lowest level call light within reach. Pt will continue to be monitored.
[2019-05-08] MEDS: Zolpidem 5mg tab ORAL PRN (20:50)
[2019-05-09] VITALS: BP 127/63
[2019-05-09] MEDS: D5 1/2NS w/KCl 20mEq 1,000 ML IV SCH ×3 (01:30→13:25)
[2019-05-09] MEDS: Ketorolac 30mg Inj IV PRN (03:20)
[2019-05-09 04:00] VITALS: BP 106/71
[2019-05-09 06:00] LABS: BASOPHILS % (AUTO) 1.1 % (0.0-2.0); EOSINOPHILS % (AUTO) 2.3 % (0.0-3.0); HEMATOCRIT 28.5 % (37.0-47.0); HEMOGLOBIN 9.8 G/DL (12.0-16.0); LYMPHOCYTES % (AUTO) 21.1 % (20.0-45.0); MEAN CORPUSCULAR VOLUME 96 FL (80-99); MONOCYTES % (AUTO) 7.2 % (1.0-10.0); NEUTROPHILS % (AUTO) 68.3 % (45.0-75.0); PLATELET COUNT 153 K/UL (150-450); RED BLOOD COUNT 2.97 M/UL (4.20-5.40); RED CELL DISTRIBUTION WIDTH 10.9 % (11.6-14.8); WHITE BLOOD COUNT 7.3 K/UL (4.8-10.8)
[2019-05-09] MEDS: PCA Morphine 1mg/ml 30 ML IV PRN (06:24)
[2019-05-09] MEDS: Ascorbic Acid 500mg tab ORAL PRN ×2 (06:25→13:32)
[2019-05-09 06:31] LABS: ANION GAP 1 mmol/L (5-15); BLOOD UREA NITROGEN 2 mg/dL (7-18); CALCIUM 7.4 MG/DL (8.5-10.1); CARBON DIOXIDE 29 MMOL/L (21-32); CHLORIDE 105 MMOL/L (98-107); CREATININE 0.6 MG/DL (0.55-1.30); POTASSIUM 5.8 MMOL/L (3.5-5.1); SODIUM 135 MMOL/L (136-145)
[2019-05-09] MEDS: PCA shift volume MISC SCH ×2 (07:00→19:00)
--- NOTE | 2019-05-09 07:55 | NUR ---
NURSE NOTES: Report received from Addie RAYGOZA. Patient resting in left lateral position. No distress on RA, abdominal pain 5/10, tolerating WORKDAY FINANCIALS CONSULTANT Morphine. Abdominal dressing CDI, BCIR ileostomy draining dark green output to gravity. FC remains in place, will apply new anchor, draining y/cl urine. IVF (D5 1/2 + 20KCL at 100 ml) to left PICC , mild bruising to surrounding skin, dressing CDI, connected with WORKDAY FINANCIALS CONSULTANT Morphine. Remains NPO, ice chips provided. Encouraged IS. Call light in reach, bed in lowest position, will continue to monitor.
[2019-05-09 08:00] VITALS: BP 128/86
[2019-05-09] MEDS: Metoprolol Succinate XL 25mg tab ORAL SCH (08:27)
[2019-05-09] MEDS: cefTRIAXone 1 GM in D5W 55 ML IVPB SCH (08:27)
[2019-05-09] MEDS ORDERED: Rate Change PCA 1 Each MISC PRN (08:30)
--- NOTE | 2019-05-09 08:32 | NUR ---
HAND OFF: Report paulina Kwok RN. Patient stable.
--- NOTE | 2019-05-09 08:39 | General Progress Note ---
Progress Note Progress Note AVSS confortable with peoplesoft demand dosing only Ambulating well Abdomen soft, mild distention, incision clean, stoma pink Urine 2425 BCIR ileo 20cc enteric labs contaminated by IV fluids - repeat pending Imp: ileus hx of neurogenic bladder Plan: continue NPO, Gwen Terry Don J. MD May 09, 2019 08:39
[2019-05-09 08:50] LABS: BASOPHILS % (AUTO) 1.1 % (0.0-2.0); EOSINOPHILS % (AUTO) 1.6 % (0.0-3.0); HEMATOCRIT 34.2 % (37.0-47.0); HEMOGLOBIN 12.1 G/DL (12.0-16.0); LYMPHOCYTES % (AUTO) 18.8 % (20.0-45.0); MEAN CORPUSCULAR VOLUME 93 FL (80-99); MONOCYTES % (AUTO) 7.2 % (1.0-10.0); NEUTROPHILS % (AUTO) 71.4 % (45.0-75.0); PLATELET COUNT 191 K/UL (150-450); RED BLOOD COUNT 3.68 M/UL (4.20-5.40); RED CELL DISTRIBUTION WIDTH 10.4 % (11.6-14.8); WHITE BLOOD COUNT 8.1 K/UL (4.8-10.8)
[2019-05-09 08:58] LABS: ANION GAP 5 mmol/L (5-15); BLOOD UREA NITROGEN 1 mg/dL (7-18); CALCIUM 8.9 MG/DL (8.5-10.1); CARBON DIOXIDE 32 MMOL/L (21-32); CHLORIDE 105 MMOL/L (98-107); CREATININE 0.5 MG/DL (0.55-1.30); POTASSIUM 4.1 MMOL/L (3.5-5.1); SODIUM 142 MMOL/L (136-145)
[2019-05-09] MEDS ORDERED: LORazepam 1mg tab ORAL PRN (09:00)
[2019-05-09] MEDS ORDERED: Ketorolac 30mg Inj IV PRN (09:00)
[2019-05-09] MEDS ORDERED: PCA Morphine 1mg/ml 30 ML IV PRN ×2 (09:00→09:30)
[2019-05-09] MEDS ORDERED: Naloxone 0.4mg/ml Inj IVP PRN (09:00)
[2019-05-09] MEDS: Iron Sucrose 200 MG in NS 110 ML IV SCH (09:26)
[2019-05-09 12:00] VITALS: BP 135/83
[2019-05-09] MEDS ORDERED: Tubing IV Secondary IV ONE (14:37)
[2019-05-09] MEDS ORDERED: NS Irrig 1000ml ONE ×2 (14:37→14:43)
--- NOTE | 2019-05-09 14:58 | NUR ---
CASE MANAGEMENT: REVIEW 05/09/19 SI:S/P REVISION ROBLEDO POUCH (05/08/19) S/P ENDOSCOPY OF BOWEL POUCH (05/05/19) MALFUNCTION ROBLEDO CONTINENT ILEOSTOMY WITH INABILITY TO CATHETERIZE TO EVACUATE STOOL 100.0 82 18 135/83 100% ON RA NA+135 K+ 5.8 BG 507 CA+7.4 BUN 1 CREAT 0.5 IS:IV ROCEPHIN QD IV D5@100ML/HR PROZAC PO QD IV VENOFER QD TOPROL PO QD GREGORIO-HEX TP QD TELEPHOTO ENGINEER MORPHINE SULFATE BID IV TORADOL Q6HR/PRN MONISTAT VG QD/PRN \: 3E MED SURG UNIT PLAN: CONT NPO COLE CARE CONT IV ABX ROCEPHIN
[2019-05-09 16:00] VITALS: BP 127/89
--- NOTE | 2019-05-09 18:00 | NUR ---
NURSE NOTES: Notified Dr. Martinez of patient BCIR ileostomy output and patient requesting to start oral diet, orders received for clear liquids, patient updated with new orders, verbalized understanding.
--- NOTE | 2019-05-09 19:49 | NUR ---
HAND-OFF: Report given to Addie RAYGOZA. Outputs: FC: 1875 ml Ileostomy: 160 ml
[2019-05-09 20:00] VITALS: BP 131/74
[2019-05-09] MEDS: Dyna-Hex 2% Top Sol 2oz TOPIC SCH (20:35)
[2019-05-09] MEDS: Zolpidem 5mg tab ORAL PRN (21:43)
--- NOTE | 2019-05-09 23:38 | NUR ---
NURSES NOTE: Met pt in bed, AOX4, patient denies pain and states STONE POLISHER HAND pump, Morphine effective. No outward s/s of distress noted. Breathing is even and unlabored on RA. Terry in tact and patent draining to gravity, Ileo flushed q3h, dressing abdomen, clean, dry, intact last changed by Michelle in AM. All due meds will be given. Bed at lowest level, call light within reach. Pt will continue to be monitored.
[2019-05-10 04:00] VITALS: BP 134/87
[2019-05-10] MEDS: Ascorbic Acid 500mg tab ORAL PRN (06:13)
[2019-05-10 06:47] LABS: BASOPHILS % (AUTO) 1.2 % (0.0-2.0); EOSINOPHILS % (AUTO) 3.3 % (0.0-3.0); HEMATOCRIT 31.6 % (37.0-47.0); HEMOGLOBIN 11.4 G/DL (12.0-16.0); LYMPHOCYTES % (AUTO) 22.4 % (20.0-45.0); MEAN CORPUSCULAR VOLUME 93 FL (80-99); MONOCYTES % (AUTO) 6.7 % (1.0-10.0); NEUTROPHILS % (AUTO) 66.4 % (45.0-75.0); PLATELET COUNT 175 K/UL (150-450); RED BLOOD COUNT 3.42 M/UL (4.20-5.40); RED CELL DISTRIBUTION WIDTH 10.3 % (11.6-14.8); WHITE BLOOD COUNT 6.6 K/UL (4.8-10.8)
[2019-05-10] MEDS: PCA shift volume MISC SCH (07:00)
[2019-05-10 07:12] LABS: ANION GAP 4 mmol/L (5-15); BLOOD UREA NITROGEN 1 mg/dL (7-18); CALCIUM 8.7 MG/DL (8.5-10.1); CARBON DIOXIDE 32 MMOL/L (21-32); CHLORIDE 105 MMOL/L (98-107); CREATININE 0.5 MG/DL (0.55-1.30); POTASSIUM 3.7 MMOL/L (3.5-5.1); SODIUM 141 MMOL/L (136-145)
[2019-05-10] MEDS: D5 1/2NS w/KCl 20mEq 1,000 ML IV SCH ×2 (07:15→13:45)
--- NOTE | 2019-05-10 07:15 | NUR ---
HAND OFF: Report given to JARET Peraza.
--- NOTE | 2019-05-10 07:35 | NUR ---
NURSE NOTES: Report received from Addie RAYGOZA, rounds made. Patient sitting upright in bed, alert, oriented x4 calm. No distress on RA. Tolerating clear liquids, no NV. Abdominal pain 5/10, tolerating GAS UTILITY WORKER Morphine, with IVF D5 1/2 +20KCL at 100 ml/hr to left PICC, dressing CDI. Abdominal dressing CDI. Right BCIR ileostomy in place draining dark green output. FC patent y/cl urine. Encouraged IS. Call light in reach, bed in lowest position, will continue to monitor.
[2019-05-10 08:00] VITALS: BP 111/74
[2019-05-10] MEDS: cefTRIAXone 1 GM in D5W 55 ML IVPB SCH (08:49)
[2019-05-10] MEDS: Metoprolol Succinate XL 25mg tab ORAL SCH (08:50)
[2019-05-10] MEDS: Iron Sucrose 200 MG in NS 110 ML IV SCH (09:35)
[2019-05-10] MEDS ORDERED: HYDROcodone/Acetamin 5/325 tab ORAL PRN (10:00)
--- NOTE | 2019-05-10 10:10 | General Progress Note ---
Progress Note Progress Note Tmax 100 x 1 VSS Had good BCIR ileostomy output yesterday and started on clear liquid diet. Abdomen soft, mild ecchymosis stable, stoma pink with mild edema medial Urine 2500 BCIR ileo 255 Labs stable Imp: Resolving ileus Plan: clear liquid diet d/c SPEECH/LANGUAGE THERAPIST and urinary Terry - has partial neurogenic bladder and must self -cath 2-3 x daily + voids maintain indwelling Ramos pouch catheter to continuous drainage Brady Martinez MD May 10, 2019 10:10
[2019-05-10 12:00] VITALS: BP 124/82
[2019-05-10] MEDS: HYDROcodone/Acetamin 10/325 tab ORAL PRN ×3 (13:46→21:46)
[2019-05-10 16:00] VITALS: BP 121/85
--- NOTE | 2019-05-10 19:30 | NUR ---
HAND-OFF: Report given to Kathy RAYGOZA, rounds made. Outputs: Urine: 1550 ml Ileostomy: 695 ml
--- NOTE | 2019-05-10 19:56 | NUR ---
NURSE NOTES: Received report from Karmen RAYGOZA. Patient is in bed, awake, AOx4. Breathing on on RA, no respiratory distress noted. No c/o pain, N/V at this time. PICC, to left upper arm intact, dressing dry and intact. Abdominal dressing dry and intact. Right BCIR ileostomy in place draining dark green output. Call light in reach, bed in low and locked position, will continue to monitor the pt.
[2019-05-10 20:00] VITALS: BP 133/86
[2019-05-10] MEDS: Dyna-Hex 2% Top Sol 2oz TOPIC SCH (21:45)
[2019-05-10] MEDS: Zolpidem 5mg tab ORAL PRN (21:45)
[2019-05-11] VITALS: BP 104/86
[2019-05-11] MEDS: D5 1/2NS w/KCl 20mEq 1,000 ML IV SCH ×2 (00:23→08:20)
[2019-05-11] MEDS: HYDROcodone/Acetamin 10/325 tab ORAL PRN ×5 (03:03→20:56)
[2019-05-11 04:00] VITALS: BP 124/82
--- NOTE | 2019-05-11 07:19 | NUR ---
NURSE NOTES: Report received from Kathy RAYGOZA, rounds made. Patient resting in semi-fowlers position in bed, alert, oriented x4 calm. No distress on RA. LPICC dressing CDI, mild bruising surrounding insertion site. IVF D51/2 + 20 KCL at 100 ml/hr. Abdominal dressing CDI, BCIR ileostomy draining dark green output. No N/V. Abdominal pain 5/10, will medicate as ordered. Encouraged IS. Call light in reach, bed in lowest position, will continue to monitor.
--- NOTE | 2019-05-11 07:20 | NUR ---
NURSE NOTES: Pt refused clear liquid diet this morning. Called and left message to Dr Martinez for BCR diet per patients, request. Awaiting for call back.
--- NOTE | 2019-05-11 07:48 | NUR ---
NURSE NOTES: Received order for BCIR diet from Dr Martinez and order carried out.
--- NOTE | 2019-05-11 07:50 | NUR ---
HAND-OFF: Report given to JARET Kwok.
[2019-05-11 08:02] VITALS: BP 147/87
[2019-05-11] MEDS: cefTRIAXone 1 GM in D5W 55 ML IVPB SCH (08:04)
[2019-05-11] MEDS: Metoprolol Succinate XL 25mg tab ORAL SCH (08:05)
[2019-05-11] MEDS: Iron Sucrose 200 MG in NS 110 ML IV SCH (09:06)
--- NOTE | 2019-05-11 09:31 | General Progress Note ---
Progress Note Progress Note AVSS and doing well with clear liquids, voiding and also self-caths (neurogenic bladder x years) Abdomen soft, healing nicely Urine 2750 BCIR ileo 1015 Imp: Improved Plan; BCIR diet maintain continuous drainage of BCIR - hopefully can start self- intubations in AM Brady Martinez MD May 11, 2019 09:31
[2019-05-11 12:00] VITALS: BP 128/83
[2019-05-11] MEDS ORDERED: Tubing IV Secondary IV ONE (13:40)
[2019-05-11] MEDS ORDERED: Sterile Water Irrig 1000ml IRRIG ONE (13:40)
[2019-05-11] MEDS ORDERED: NS Irrig 1000ml ONE (13:40)
--- NOTE | 2019-05-11 19:48 | NUR ---
HAND-OFF: Report given to Radha RAYGOZA, rounds made. Outputs: Urine (self cath): 1450 ml BCIR Ileostomy: 320 ml
--- NOTE | 2019-05-11 19:50 | NUR ---
NURSE NOTES: Received report from JARET Peraza. Patient stable. PICC line dressing intact, abdominal dressing intact. Bed in low position, locked, side rails up x2, call light within reach. Will continue to monitor.
[2019-05-11 20:00] VITALS: BP 105/70
[2019-05-11] MEDS: Dyna-Hex 2% Top Sol 2oz TOPIC SCH (20:26)
--- NOTE | 2019-05-11 20:30 | NUR ---
NURSE NOTES: Ileo draining dark green fluid. Intact, patent. Denies nausea/vomiting. Will continue to monitor.
[2019-05-11] MEDS: Zolpidem 5mg tab ORAL PRN (21:50)
[2019-05-12] MEDS: HYDROcodone/Acetamin 10/325 tab ORAL PRN ×4 (03:28→20:13)
--- NOTE | 2019-05-12 03:40 | NUR ---
NURSE NOTES: Ileo flushing well, patient feels bloated. Attempted to aspirate, obtained small amount greenish fluid and air. Ileo dressing noted small amount clear discharge, changed dressing. Given vitamin C and grape juice. Encouraged ambulation. Will continue to monitor.
[2019-05-12] MEDS: Ascorbic Acid 500mg tab ORAL PRN (03:46)
[2019-05-12 04:00] VITALS: BP 101/66
--- NOTE | 2019-05-12 05:50 | NUR ---
NURSE NOTES: Noted increase in ileo output in the last couple of hours. Flushing without resistance. Encouraged grape juice. Will continue to monitor.
--- NOTE | 2019-05-12 07:15 | NUR ---
HAND-OFF: Report given to JARET Berger. Rounding done.
--- NOTE | 2019-05-12 07:30 | NUR ---
NURSE NOTES: Received report from Radha RAYGOZA. Patient is awake and oriented, no acute distress noted, reporting mild surgical site pain, will medicate per order. Ileo to gravity drainage draining brown output. NATALI PICC intact, dressing clean and dry. Patient having breakfast and tolerating well. Updated on plan of care for the day. Side rails upx2, bed low and locked, call light within reach.
[2019-05-12 08:00] VITALS: BP 124/78
[2019-05-12] MEDS: Iron Sucrose 200 MG in NS 110 ML IV SCH (08:56)
[2019-05-12] MEDS: Metoprolol Succinate XL 25mg tab ORAL SCH (08:56)
--- NOTE | 2019-05-12 09:16 | NUR ---
CASE MANAGEMENT: REVIEW 05/10/19 SI:S/P REVISION ROBLEDO POUCH (05/08/19) S/P ENDOSCOPY OF BOWEL POUCH (05/05/19) MALFUNCTION ROBLEDO CONTINENT ILEOSTOMY WITH INABILITY TO CATHETERIZE TO EVACUATE STOOL 99.7 87 20 124/82 96% ON RA H/H 11.4/31.6 BUN 1 CREAT 0.5 IS:IV ROCEPHIN QD IV D5@100ML/HR PROZAC PO QD IV VENOFER QD TOPROL PO QD GREGORIO-HEX TP QD IT ARCHITECTURE ANALYST MORPHINE SULFATE BID IV TORADOL Q6HR/PRN MONISTAT VG QD/PRN \: 3E MED SURG UNIT PLAN: DC IT ARCHITECTURE ANALYST MAINTAIN INDWELLING ROBLEDO POUCH CATHETER TO CONTINUOUS DRAINAGE CASE MANAGEMENT: REVIEW 05/11/19 SI:S/P REVISION ROBLEDO POUCH (05/08/19) S/P ENDOSCOPY OF BOWEL POUCH (05/05/19) MALFUNCTION ROBLEDO CONTINENT ILEOSTOMY WITH INABILITY TO CATHETERIZE TO EVACUATE STOOL 99.1 91 21 147/87 98% ON RA IS:IV ROCEPHIN QD IV D5@100ML/HR PROZAC PO QD IV VENOFER QD TOPROL PO QD GREGORIO-HEX TP QD IT ARCHITECTURE ANALYST MORPHINE SULFATE BID IV TORADOL Q6HR/PRN MONISTAT VG QD/PRN \: 3E MED SURG UNIT PLAN: BCIR DIET MAINTAIN INDWELLING ROBLEDO POUCH CATHETER TO CONTINUOUS DRAINAGE PLAN SELF INTUBATION IN AM CASE MANAGEMENT: REVIEW 05/12/19 SI:S/P REVISION ROBLEDO POUCH (05/08/19) S/P ENDOSCOPY OF BOWEL POUCH (05/05/19) MALFUNCTION ROBLEDO CONTINENT ILEOSTOMY WITH INABILITY TO CATHETERIZE TO EVACUATE STOOL 98.1 64 16 124/78 99% ON RA IS:PROZAC PO QD IV VENOFER QD TOPROL PO QD GREGORIO-HEX TP QD MONISTAT VG QD/PRN \: 3E MED SURG UNIT PLAN: DC IN AM
--- NOTE | 2019-05-12 09:17 | General Progress Note ---
Progress Note Progress Note AVSS Tolerating BCIR diet. Abdomen soft, flat, healing well. rivera removed steristrips applied BCIR ileo catheter removed - reinserts readily I&O satisfactory Imp: Improved Plan: RN supervised Ramos pouch self-intubations q3h am to hs, and prn Discharge early AM if does well Instructions/limitations/supplies discussed/provided f/u 1 week Rx [place] 5/325 #60 - advised to taper from 10mg to 5mg and longer intervals Brady Martinez MD May 12, 2019 09:17
--- NOTE | 2019-05-12 09:33 | NUR ---
*-* INSURANCE *-* ALL AVAILABLE CLINICALS HAVE BEEN FAXED TO: [employer] CM: Briana Wilde ph# [phone] ext [phone] fax# [phone]
[2019-05-12 12:00] VITALS: BP 126/82
--- NOTE | 2019-05-12 12:02 | NUR ---
NURSE NOTES: PICC line removed per MD order, patient tolerated well. Line removed intact, measured 40cm at the tip. Sterile dressing applied to site with pressure, no bleeding noted.
--- NOTE | 2019-05-12 13:10 | NUR ---
RD ASSESSMENT & RECOMMENDATIONS SEE CARE ACTIVITY FOR COMPLETE ASSESSMENT DAILY ESTIMATED NEEDS: Needs based on Surgery 58.6kg 25-35 kcals/kg 0760-8906 total kcals 1-2 g protein/kg 59-117 g total protein 25-30 mL/kg 7058-6468 total fluid mLs NUTRITION DIAGNOSIS: Altered GI fxn r/t malfunctioning ileostomy, as evidenced by pt adm w/ inability to intubate continent ileo, now s/p surgical revision, diet advanced to BCIR and tolerating well. CURRENT DIET:Now BCIR PO DIET RECOMMENDATIONS: As per MD ADDITIONAL RECOMMENDATIONS: * Obtain weekly wts/ standing preferred if able * Monitor for continued good po tolerance * Lytes daily .
[2019-05-12 16:00] VITALS: BP 134/80
--- NOTE | 2019-05-12 19:00 | NUR ---
NURSE NOTES: Total ileo output for shift: +900mL Total urine output: 700mL Patient self intubating without issue, tolerating diet well, provided with discharge supplies.
--- NOTE | 2019-05-12 19:27 | NUR ---
HAND-OFF: Report given to Radha RAYGOZA.
--- NOTE | 2019-05-12 19:29 | NUR ---
NURSE NOTES: Received report from JARET Berger. Addendum: 05/12/19 at 2249 by Radha Owusu RN Per AM nurse report. PICC was discontinued as ordered earlier today. Dressing intact.
[2019-05-12] MEDS: Dyna-Hex 2% Top Sol 2oz TOPIC SCH (19:47)
[2019-05-12 20:00] VITALS: BP 107/69
--- NOTE | 2019-05-12 20:16 | NUR ---
NURSE NOTES: Patient alert, oriented, awake. Has been intubating today and states "it's easier than before, in 2018". Has some pain at this time, given [place] as ordered. No distress noted. Bed in low position, locked, side rails up x2. Has all discharge supplies per MD order at bedside, in bag. Will continue to monitor.
[2019-05-13] VITALS: BP 114/73
[2019-05-13] MEDS ORDERED: NS 500ML ONE (02:59)
[2019-05-13] MEDS ORDERED: NS Irrig 1000ml ONE (02:59)
--- NOTE | 2019-05-13 03:00 | NUR ---
Patient discharged home, left unit via wheelchair to private car service. Alert, oriented, no distress. Condition stable. Discharge instructions signed. Patient to f/u with doctor in one week. No IV access, ID band off.
--- NOTE | 2019-05-14 14:17 | NUR ---
*-* INSURANCE *-* DISCHARGE INSTRUCTION HAVE BEEN FAXED NO D/C SUMMARY IN THE SYSTEM. [employer] P[employer] CM: Briana Wilde ph# [phone] ext [phone] fax# [phone]
--- NOTE | 2019-05-14 20:34 | Discharge Summary ---
Discharge Summary Hospital Course Date of Admission May 03, 2019 at 23:18 Date of Discharge May 13, 2019 at 03:00 Admitting Diagnosis Malfunctioning Ramos continent ileostomy with inability to catheterize to evacuate stool and gas. Reason for Hospitalization: Elective surgery HPI 38 year old female was admitted on May 03, 2019 at 23:18 for malfunctioning Ramos continent ileostomy with inability to catheterize to evacuate stool and gas. Patient was admitted to for elective surgery Procedures s/p 05/[address] Michelle Ramos pouch endoscopy s/p 05/[address] Martinez Laparotomy with revision of Ramos continent ileostomy stoma and access segment. Hospital Course patient admitted for malfunctioning Ramos continent ileostomy with inability to catheterize to evacuate stool and gas patient with a history of ulcerative colitis, neurogenic bladder requiring self- catheterization 1-2 times daily hypertension and status post multiply abdominal operation patient was kept n.p.o. and started on the IV fluids patient started on empiric antibiotic for possible UTI. patient subsequently undergone pouch endoscopy on 05/05, which revealed elongated, angulated access segment, normal pouch and valve 28 [place]ian Terry catheter inserted to drainage patient undergone laparotomy with revision of Ramos pouch and stoma on 05/06 postoperatively patient was kept n.p.o. pain management provided with ACTUARY with basal infusion and Toradol as needed Terry continued due to history of neurogenic bladder urine culture revealed Klebsiella pneumonia , antibiotic continued ambulation was encouraged, patient ambulated well basal infusion of ACTUARY was subsequently discontinued patient was followed-up with the labs intake and intake and output were closely monitored iron 24, patient started on Venofer B12 and folate stable patient patient continued to be n.p.o. due to initial ileus patient was comfortable with the ACTUARY on demand dosing only incision was healing well, stoma appeared clean, pink ileus was gradually resolving patient started on clear liquid diet ACTUARY and Terry catheter were discontinued on 05/10 Ramos pouch catheter was maintained to continuous drainage patient was able to tolerate liquid diet diet and was subsequently advanced to BCIR diet intake and output and labs were closely monitored patient started on RN supervised Ramos pouch self intubation every 3 hours a.m. to hs and as needed rivera were removed, Steri-Strips applied patient tolerated BCIR diet discharge instruction/ limitations/ supplies discussed /provided patient to follow-up in 1 week prescription for [place] provided patient clinically stabilized and was ready for discharge FINAL DIAGNOSIS 1. 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 2. History of ulcerative colitis. 3. STATUS POST MULTIPLE ABDOMINAL OPERATIONS: 4. 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 5. Resection of failed J-pouch with abdominoperineal proctectomy and creation of April ileostomy 2009. 6. Open cholecystectomy in January 2017. 7. Ramos continent intestinal reservoir continent ileostomy December 2017. 8. s/p Ramos pouch endoscopy 9. s/p Laparotomy with revision of Ramso continent ileostomy stoma and access segment. 10. Ileus 11. Severe iron deficiency 12. History of neurogenic bladder requiring self-catheterization Discharge Medications Continued Medications: Fluoxetine Hcl* (Prozac*) 20 Mg Capsule 30 MG ORAL DAILY, CAP (This prescription has been renewed) Metoprolol Succinate* (Metoprolol Succinate*) 25 Mg Tab.er.24h 25 MG ORAL DAILY, TAB (This prescription has been renewed) Discharge Condition Upon Discharge: stable Discharge Vital Signs Last Vital Signs Date Time Temp Pulse Resp B/P (MAP) Pulse Ox O2 Delivery O2 Flow Rate FiO2 05/13/19 00:00 98.2 85 15 114/73 (87) 99 05/12/19 21:00 Room Air 05/09/19 09:10 21 05/06/19 16:17 2.0 Discharge Disposition Patient was discharged home Discharge Instructions Discharge Instructions Special Instructions I have been assigned to complete a D/C Summary on this account. I was not involved in the patient management Odalys Villegas NP May 14, 2019 20:34
== END 2019-05-13 03:00 | disposition home or self-care (01) | DRG 348 ==
LOC: EDBEDREQ 21:49 → EMR 22:35 → EDBEDREQ 23:09 → 3E 23:18
PROC: 0DJD8ZZ Inspection of Lower Intestinal Tract, Via Natural or Artificial Opening Endoscopic (ICD-10-PCS; principal; 2019-05-05 08:00)
PROC: 0WQFXZ2 Repair Abdominal Wall, Stoma, External Approach (ICD-10-PCS; 2019-05-06)
DX: K94.13 Enterostomy malfunction (principal); N39.0 Urinary tract infection, site not specified; K56.7 Ileus, unspecified; Y83.3 Surgical operation with formation of external stoma as the cause of abnormal reaction of the patient, or of later complication, without mention of misadventure at the time of the procedure; Z88.1 Allergy status to other antibiotic agents; Z88.0 Allergy status to penicillin; N31.9 Neuromuscular dysfunction of bladder, unspecified; Z87.19 Personal history of other diseases of the digestive system; I10 Essential (primary) hypertension; Z90.49 Acquired absence of other specified parts of digestive tract; E61.1 Iron deficiency
CPT/HCPCS: 36415; 36569; 76937; 80048; 80053; 81001; 81003; 81025; 82607; 82746; 82962; 83540; 83550; 83690; 85025; 85610; 87086; 87181; 93005; 94003; 94150; 96361; 96365; 96375; 96376; 99285; J2405; J2710; J7030

== ENCOUNTER 2019-10-20 10:00 | Inpatient (IN) | payer BC ==
[~2019-10-20] VITALS: Ht 162.6 cm; Wt 58.1 kg
[~2019-10-20 10:00] MED LIST changes: +LEVAQUIN500 MG ORAL
[2019-10-20 10:03] VITALS: BP 127/90
--- NOTE | 2019-10-20 10:27 | Emergency Room Report ---
History of Present Illness General Chief Complaint: Gastrointestinal Illness Source: Patient, PMD Present Illness HPI This patient has a history of colitis and underwent colostomy and BCIR. The patient was scheduled 1 month ago for a Ramos pouch takedown. However, she tested positive for COVID-19. She continues to have difficulty with her Ramos pouch and presents for dysfunction of the pouch. She states that in [place] she did test negative recently. The surgeon Dr. Martinez plans to take down her pouch. She states she has no cough or congestion. She denies fever or chills. She has no other complaints. Allergies: Coded Allergies: ERYTHROMYCIN BASE (Verified Allergy, Intermediate, rash, 01/22/18) PENICILLINS (Verified Allergy, Intermediate, rash, hi9ves, 01/22/18) COVID-19 Screening Contact w/high risk pt: No Experienced COVID-19 symptoms?: No COVID-19 Testing performed ECHOCARDIOGRAPHER: Yes - 10/13/19 COVID-19 Screening: Negative COVID-19 COVID-19 Testing Source: Nasopharynx Patient History Past Medical History: see triage record, HTN, psych hx, other - UC Past Surgical History: other - BCIR, ileostomy Social History: Denies: smoking, alcohol use, drug use Last Menstrual Period: September 26, 2019 Now: No Reviewed Nursing Documentation: PMH: Agreed; PSxH: Agreed Nursing Documentation-PMH Past Medical History: No History, Except For Hx Cardiac Problems: Yes Hx Hypertension: Yes Hx Cancer: No Hx Gastrointestinal Problems: Yes Hx Neurological Problems: No Review of Systems All Other Systems: negative except mentioned in HPI Physical Exam Vital Signs Date Time Temp Pulse Resp B/P (MAP) Pulse Ox O2 Delivery O2 Flow Rate FiO2 10/20/19 10:03 98.4 80 20 127/90 (102) 97 Room Air Sp02 EP Interpretation: reviewed, normal General Appearance: no apparent distress, alert, GCS 15, non-toxic Head: normocephalic, atraumatic Eyes: bilateral eye normal inspection, bilateral eye PERRL ENT: hearing grossly normal, normal pharynx, no angioedema, normal voice Neck: full range of motion, supple/symm/no masses Respiratory: chest non-tender, lungs clear, normal breath sounds, no respiratory distress, no retraction, no accessory muscle use, speaking full sentences Cardiovascular #1: regular rate, rhythm, no edema Gastrointestinal: normal bowel sounds, non tender, soft, non-distended, no guarding, no rebound, other - BCIR pouch in place Rectal: deferred Musculoskeletal: back normal, normal range of motion, non-tender Neurologic: alert, motor strength/tone normal, oriented x3, sensory intact, responsive, speech normal Psychiatric: judgement/insight normal, memory normal, mood/affect normal, no suicidal/homicidal ideation Medical Decision Making Diagnostic Impression: Primary Impression: Malfunctioning of Ramos Pouch with Valve Prolapse ER Course This patient presents for revision of her malfunctioning Ramos pouch. Overall she is well-appearing. COVID-19 test is negative. Patient is admitted for further management by Dr. Sharma. Laboratory Tests Test 10/20/19 10:20 White Blood Count 8.2 K/UL (4.8-10.8) Red Blood Count 4.32 M/UL (4.20-5.40) Hemoglobin 13.9 G/DL (12.0-16.0) Hematocrit 41.9 % (37.0-47.0) Mean Corpuscular Volume 97 FL (80-99) Mean Corpuscular Hemoglobin 32.2 PG (27.0-31.0) H Mean Corpuscular Hemoglobin Concent 33.2 G/DL (32.0-36.0) Red Cell Distribution Width 10.7 % (11.6-14.8) L Platelet Count 263 K/UL (150-450) Mean Platelet Volume 4.9 FL (6.5-10.1) L Neutrophils (%) (Auto) 72.1 % (45.0-75.0) Lymphocytes (%) (Auto) 22.7 % (20.0-45.0) Monocytes (%) (Auto) 3.6 % (1.0-10.0) Eosinophils (%) (Auto) 0.5 % (0.0-3.0) Basophils (%) (Auto) 1.1 % (0.0-2.0) Sodium Level 137 MMOL/L (136-145) Potassium Level 3.4 MMOL/L (3.5-5.1) L Chloride Level 101 MMOL/L (98-107) Carbon Dioxide Level 27 MMOL/L (21-32) Anion Gap 9 mmol/L (5-15) Blood Urea Nitrogen 12 mg/dL (7-18) Creatinine 0.8 MG/DL (0.55-1.30) Estimated Glomerular Filtration Rate > 60 mL/min (>60) Glucose Level 93 MG/DL (74-106) Calcium Level 9.3 MG/DL (8.5-10.1) Total Bilirubin 0.5 MG/DL (0.2-1.0) Aspartate Amino Transferase (AST) 19 U/L (15-37) Alanine Aminotransferase (ALT) 22 U/L (12-78) Alkaline Phosphatase 45 U/L (46-116) L Total Protein 7.7 G/DL (6.4-8.2) Albumin 4.4 G/DL (3.4-5.0) Globulin 3.3 g/dL Albumin/Globulin Ratio 1.3 (1.0-2.7) Last Vital Signs Date Time Temp Pulse Resp B/P (MAP) Pulse Ox O2 Delivery O2 Flow Rate FiO2 10/20/19 10:03 98.4 80 20 127/90 (102) 97 Room Air Disposition: ADMITTED INPATIENT Condition: Stable Referrals: NON PHYSICIAN (PCP) Rissa Mckinney DO Oct 20, 2019 10:27
[2019-10-20 10:56] LABS: BASOPHILS % (AUTO) 1.1 % (0.0-2.0); EOSINOPHILS % (AUTO) 0.5 % (0.0-3.0); HEMATOCRIT 41.9 % (37.0-47.0); HEMOGLOBIN 13.9 G/DL (12.0-16.0); LYMPHOCYTES % (AUTO) 22.7 % (20.0-45.0); MEAN CORPUSCULAR VOLUME 97 FL (80-99); MONOCYTES % (AUTO) 3.6 % (1.0-10.0); NEUTROPHILS % (AUTO) 72.1 % (45.0-75.0); PLATELET COUNT 263 K/UL (150-450); RED BLOOD COUNT 4.32 M/UL (4.20-5.40); RED CELL DISTRIBUTION WIDTH 10.7 % (11.6-14.8); WHITE BLOOD COUNT 8.2 K/UL (4.8-10.8)
[2019-10-20 11:00] LABS: ANION GAP 9 mmol/L (5-15); BLOOD UREA NITROGEN 12 mg/dL (7-18); CALCIUM 9.3 MG/DL (8.5-10.1); CARBON DIOXIDE 27 MMOL/L (21-32); CHLORIDE 101 MMOL/L (98-107); CREATININE 0.8 MG/DL (0.55-1.30); POTASSIUM 3.4 MMOL/L (3.5-5.1); SODIUM 137 MMOL/L (136-145)
[2019-10-20 11:05] LABS: ALANINE AMINOTRANSFERASE 22 U/L (12-78); ALBUMIN 4.4 G/DL (3.4-5.0); ALBUMIN/GLOBULIN RATIO 1.3 (1.0-2.7); ALKALINE PHOSPHATASE 45 U/L (46-116); ASPARTATE AMINO TRANSFERASE 19 U/L (15-37); BILIRUBIN,TOTAL 0.5 MG/DL (0.2-1.0)
[2019-10-20] MEDS ORDERED: Lidocaine 1% Plain 30 ml INJ PRN (12:54)
[2019-10-20] MEDS ORDERED: Heparin1,000 units/500ml Premix(Conc:2 units/ml) IV PRN (13:00)
[2019-10-20] MEDS ORDERED: D5 1/2NS w/KCl 20mEq 1,000 ML IV SCH (14:00)
[2019-10-20] MEDS: D5 1/2NS w/KCl 20mEq 1,000 ML IV SCH (14:47)
--- NOTE | 2019-10-20 14:54 | General Progress Note ---
Progress Note Progress Note H&P dictated. Patient re-admitted now Covid-19 negative x 2 including this AM in ED, with malfunctioning Ramos Pouch with valve prolapse. Indwelling 28 Terry inserted into pouch - to continuous drainage Abdomen soft, prolapse is reduced Plan: IV fluids; PICC insertion Ramos pouch endoscopy tomorrow bowel prep 10/22/2019 Surgical revision of Ramos continent ileostomy on 10/23/2019 Brady Martinez MD Oct 20, 2019 14:54
[2019-10-20 15:22] LABS: APPEARANCE,URINE SLIGHTLY CLOUDY; BILIRUBIN, URINE NEGATIVE (NEGATIVE); GLUCOSE, URINE (UA) NEGATIVE (NEGATIVE); KETONES,URINE 2+ (NEGATIVE); LEUKOCYTE ESTERASE ,URINE 2+ (NEGATIVE); NITRITE,URINE NEGATIVE (NEGATIVE); PH,URINE 5 (4.5-8.0); PROTEIN,URINE NEGATIVE (NEGATIVE); UROBILINOGEN,URINE NORMAL MG/DL (0.0-1.0)
[2019-10-20 15:26] LABS: COLOR,URINE YELLOW
--- NOTE | 2019-10-20 15:51 | Pre-Procedure Note/Attestation ---
Pre-Procedure Note/Attestation Complete Prior to Procedure Planned Procedure: left Procedure Narrative: picc line Indications for Procedure Pre-Operative Diagnosis: need iv access Attestation I attest that I discussed the nature of the procedure; its benefits; risks and complications; and alternatives (and the risks and benefits of such alternatives ), prior to the procedure, with the patient (or the patient's legal public relations representative). I attest that, if there was a reasonable possibility of needing a blood transfusion, the patient (or the patient's legal public relations representative) was given the [facility] standardized written summary, pursuant to the [place] Blood Safety Act ([place] Health and Safety Code # 1645, as amended). I attest that I re-evaluated the patient just prior to the surgery and that there has been no change in the patient's H&P, except as documented below: Harrison Leon M.D. Oct 20, 2019 15:51
--- NOTE | 2019-10-20 15:57 | Diagnostic Imaging Report ---
Indications: Needs long-term IV access Technique: Ultrasound confirms patent compressible left basilic vein. Total sterile technique, including sterile probe cover and sterile gel, hat, mask,, sterile gown, large sterile drape, and preparation with 2% chlorhexidine utilized. Local anesthesia with 1% lidocaine. Under real-time ultrasound guidance, puncture left basilic vein using 21-gauge needle, documented and archived, passage 0.018 guidewire under direct fluoroscopy, which was used to determine appropriate catheter length, exchange for 4.5French peel-away sheath. 4 Telugu dual-lumen power PICC cut to 40 cm. It was inserted through the peel-away sheath. Peel-away sheath and guidewire removed. Catheter fixed to the skin. Both catheter ports aspirated and flushed. Patient tolerated procedure well, without immediate complication. Digital radiograph documents satisfactory catheter tip position, at the cavoatrial junction. Total fluoroscopy time 8 seconds. Total fluoroscopy dose 0.69 mGy. Total number fluoroscopic images obtained: 1. Impression: Successful placement of PICC under sonographic and fluoroscopic guidance, as described above. Catheter cleared for immediate use.
--- NOTE | 2019-10-20 16:15 | Pre-op HX & Phy Repo 2 SIG ---
DATE OF ADMISSION: 10/20/2019 EMERGENCY ADMISSION HISTORY AND PHYSICAL The patient was admitted from the emergency room in the late morning of October 20, 2019. 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 She recently presented but was COVID-19 positive and since then has tested negative twice including in the emergency room today. The patient has had difficulty reducing the prolapse of the continent ileostomy valve and difficulty inserting her intubation catheter to evacuate stool and gas from her internal pouch. [place] to [place] this problem definitively taken care of. She has a past history of ulcerative colitis and has undergone multiple abdominal operations including ileoanal J-pouch, which failed and then Ramos continent ileostomy in December 2017 with revision of the access segment on May 06, 2019. She had been doing well intubating her pouch 4 to 5 times per day, but in August noticed progressive protrusion of the valve at least 3 centimeters above the level of the skin. PAST MEDICAL HISTORY: MEDICATIONS: Metoprolol and Prozac. ALLERGIES: Penicillin and erythromycin cause hives. OPERATIONS: In addition to the listing at the end of this dictation of her abdominal gastrointestinal surgeries she has undergone augmentation mammoplasty in 2007. REVIEW OF SYSTEMS: The patient has a neurogenic bladder ever since her J-pouch surgery in 2018. She does void spontaneously, but 1 to 2 times daily. She catheterizes her bladder to fully empty it and she has been dealing with recurring urinary tract infections over the years. PHYSICAL EXAMINATION: GENERAL: The patient is 5 feet 4 inches, approximately 130 pounds. VITAL SIGNS: Her vital signs are within normal limits. HEENT: Within normal limits. LUNGS: Clear. HEART: Regular rhythm. BREASTS: Without masses with bilateral implants. ABDOMEN: Soft with a long midline scar. The stoma of the Ramos continent ileostomy pouch is low in the right lower quadrant with the prolapse of valve currently reduced. PELVIC: Per primary care recently. RECTAL: Status post proctectomy. EXTREMITIES: Without edema. NEUROLOGIC: Physiologic. IMPRESSION: 1. Malfunctioning Ramos continent ileostomy with prolapse of the nipple valve. 2. History of ulcerative colitis. 3. Hypertension. 4. History of neurogenic bladder requiring self catheterization 1 to 2 times daily. 5. Status post multiple abdominal operations. 5.1. Total colectomy with ileoanal J-pouch and diverting ileostomy in January 2009. 5.2. Resection of failed ileoanal J-pouch with abdomino-perineal proctectomy and April ileostomy December 2009. 5.3. Open cholecystectomy in January 2017. 6. Ramos continent ileostomy December 2017. 7. Laparotomy with revision of Ramos continent ileostomy stoma and redundant access segment May 06, 2019. PLAN: The patient will be admitted and a PICC line inserted and IV hydration instituted. An indwelling catheter which will be placed into her Ramos continent ileostomy pouch through the stoma and connected to continuous drainage. The patient will undergo a Ramos pouch endoscopy which will require sedation by anesthesia. She will then be prepared for surgical revision of her malfunctioning Ramos pouch valve prolapse. Brady Martinez M.D. DR: Jonathan JOB#: [id number] CC:
[2019-10-20] MEDS: Dyna-Hex 2% Top Sol 2oz TOPIC SCH (19:56)
[2019-10-20] MEDS ORDERED: Zolpidem 5mg tab ORAL PRN (20:05)
[2019-10-20] MEDS ORDERED: Zolpidem 5mg tab ONE (20:46)
[2019-10-20] MEDS ORDERED: Bactrim-DS 1 tab ONE (20:50)
[2019-10-20] MEDS: Bactrim-DS 1 tab ORAL SCH (20:51)
[2019-10-20] MEDS: Zolpidem 5mg tab ORAL PRN (20:52)
--- NOTE | 2019-10-20 20:59 | Infectious Diseases Prog Note ---
Assessment/Plan Assessment/Plan Full consult dictated: A) 1) hx asymptomatic covid-19 infection 2) repeat testing now negative 3) uti - + urinalysis, hx neurogenic bladder 4) malfunctioning Ramos ileostomy 5) allergies - pcn - hives, erythromycin, no sulfa allergy P) 1) empiric bactrim for uti 2) f/u on urine culture 3) plan on surgical revision: reva-operative antibiotics - fluoroquinolone ( levofloxacin or ciprofloxacin) plus flagyl reasonable 4) monitor labs 5) thank; you Subjective Allergies: Coded Allergies: ERYTHROMYCIN BASE (Verified Allergy, Intermediate, rash, 01/22/18) PENICILLINS (Verified Allergy, Intermediate, rash, hi9ves, 01/22/18) Objective Last 24 Hour Vital Signs Date Time Temp Pulse Resp B/P (MAP) Pulse Ox O2 Delivery O2 Flow Rate FiO2 10/20/19 12:49 Room Air 10/20/19 12:23 98.4 80 20 127/90 97 Room Air 10/20/19 10:37 80 20 Room Air 10/20/19 10:03 98.4 80 20 127/90 97 Room Air 10/20/19 10:03 98.4 80 20 127/90 (102) 97 Room Air Height (Feet): 5 Height (Inches): 5.00 Weight (Pounds): 125 Microbiology Date/Time Source Procedure Growth Status 10/20/19 10:20 Nasopharynx SARS-CoV-2 RdRp Gene Assay - Final Complete Laboratory Tests Test 10/20/19 10:20 10/20/19 15:00 White Blood Count 8.2 K/UL (4.8-10.8) Red Blood Count 4.32 M/UL (4.20-5.40) Hemoglobin 13.9 G/DL (12.0-16.0) Hematocrit 41.9 % (37.0-47.0) Mean Corpuscular Volume 97 FL (80-99) Mean Corpuscular Hemoglobin 32.2 PG (27.0-31.0) H Mean Corpuscular Hemoglobin Concent 33.2 G/DL (32.0-36.0) Red Cell Distribution Width 10.7 % (11.6-14.8) L Platelet Count 263 K/UL (150-450) Mean Platelet Volume 4.9 FL (6.5-10.1) L Neutrophils (%) (Auto) 72.1 % (45.0-75.0) Lymphocytes (%) (Auto) 22.7 % (20.0-45.0) Monocytes (%) (Auto) 3.6 % (1.0-10.0) Eosinophils (%) (Auto) 0.5 % (0.0-3.0) Basophils (%) (Auto) 1.1 % (0.0-2.0) Sodium Level 137 MMOL/L (136-145) Potassium Level 3.4 MMOL/L (3.5-5.1) L Chloride Level 101 MMOL/L (98-107) Carbon Dioxide Level 27 MMOL/L (21-32) Anion Gap 9 mmol/L (5-15) Blood Urea Nitrogen 12 mg/dL (7-18) Creatinine 0.8 MG/DL (0.55-1.30) Estimat Glomerular Filtration Rate > 60 mL/min (>60) Glucose Level 93 MG/DL (74-106) Calcium Level 9.3 MG/DL (8.5-10.1) Total Bilirubin 0.5 MG/DL (0.2-1.0) Aspartate Amino Transf (AST/SGOT) 19 U/L (15-37) Alanine Aminotransferase (ALT/SGPT) 22 U/L (12-78) Alkaline Phosphatase 45 U/L (46-116) L Total Protein 7.7 G/DL (6.4-8.2) Albumin 4.4 G/DL (3.4-5.0) Globulin 3.3 g/dL Albumin/Globulin Ratio 1.3 (1.0-2.7) Urine Color Yellow Urine Appearance Slightly cloudy Urine pH 5 (4.5-8.0) Urine Specific [place] 1.025 (1.005-1.035) Urine Protein Negative (NEGATIVE) Urine Glucose (UA) Negative (NEGATIVE) Urine Ketones 2+ (NEGATIVE) H Urine Blood 2+ (NEGATIVE) H Urine Nitrite Negative (NEGATIVE) Urine Bilirubin Negative (NEGATIVE) Urine Urobilinogen Normal MG/DL (0.0-1.0) Urine Leukocyte Esterase 2+ (NEGATIVE) H Urine RBC 5-10 /HPF (0 - 2) H Urine WBC 20-30 /HPF (0 - 2) H Urine Squamous Epithelial Cells Moderate /LPF (NONE/OCC) H Urine Bacteria Few /HPF (NONE) Urine Mucus Many /LPF (NONE/OCC) H Current Medications Medications (Trade) Dose Ordered Sig/Shannan Route PRN Reason Start Time Stop Time Status Last Admin Dose Admin Chlorhexidine Gluconate (Lena-Hex 2%) 1 applic DAILY@2000 TOPIC 10/20/19 20:00 01/18/20 19:59 10/20/19 19:56 Dextrose/ Electrolytes 1,000 ml @ 75 mls/hr [id number] IV 10/20/19 14:47 11/19/19 14:46 10/20/19 14:47 Fluoxetine HCl (PROzac) 40 mg DAILY ORAL 10/21/19 09:00 11/20/19 08:59 Heparin Sodium/ Sodium Chloride (Heparin 1000 units/500ml Premix) 1,000 unit ONCE PRN IV PICC 10/20/19 13:00 10/20/19 23:59 Lidocaine HCl (Xylocaine 1% 30ml) 30 ml ONCE PRN INJ PICC 10/20/19 12:54 10/20/19 23:59 Metoprolol Succinate (Toprol XL) 50 mg DAILY ORAL 10/21/19 09:00 01/19/20 08:59 Ondansetron HCl (Zofran) 4 mg Q4H PRN IVP Nausea & Vomiting 10/20/19 12:45 11/19/19 12:44 Trimethoprim/ Sulfamethoxazole (Bactrim-DS) 1 tab Q12HR ORAL 10/20/19 21:00 10/27/19 20:59 10/20/19 20:51 Zolpidem Tartrate (Ambien) 10 mg HSPRN PRN ORAL Insomnia 10/20/19 20:51 10/27/19 20:50 10/20/19 20:52 Stu Peralta MD Oct 20, 2019 20:59
[2019-10-20 21:42] VITALS: BP 136/89
--- NOTE | 2019-10-20 23:15 | Consultation ---
DATE OF CONSULTATION: 10/20/2019 INFECTIOUS DISEASES CONSULTATION CONSULTING PHYSICIAN: Stu Pearlta M.D. ATTENDING PHYSICIAN: Brady Martinez M.D. REFERRING PHYSICIAN: Brady Martinez M.D. REASON FOR CONSULTATION: The patient with history of COVID-19 infection, possible UTI, and preoperative antibiotics. CHIEF COMPLAINT: The patient's chief complaint coming into the hospital is malfunction of Ramos pouch malfunction. HISTORY OF PRESENT ILLNESS: This is a very pleasant 38-year-old female who comes into [facility] with malfunction of Ramos continent ileostomy and prolapse of the nipple valve. The patient to undergo revision. The patient was here previously and was tested positive for COVID-19 infection. The patient now has had repeat testing outside the hospital and also in the emergency room and has had negative nasopharyngeal testing including today which her nucleic acid test was negative. The patient was approximately 2 weeks after initial positive test and remains asymptomatic. Infectious Diseases consultation requested for management of this patient who is due to undergo revision of malfunction of Ramos ileostomy. The patient also looks like she could have urinary tract infection. She has no significant symptoms, but she has history of neurogenic bladder and tells me that she does not have classic symptoms for urinary tract infection. In addition, recommendation for preoperative antibiotics. Case discussed with the patient and the RN. The patient was placed on empiric Bactrim for possible UTI. REVIEW OF SYSTEMS: The patient has no fever, chills, night sweats.PULMONARY: She has no cough, congestion, respiratory symptoms. No shortness of breath. GASTROINTESTINAL: No significant abdominal pain, nausea, vomiting. GENITOURINARY: No CVA tenderness. CARDIAC: No chest pain. HEAD AND NECK: No head pain or neck pain. She has no thrush or dysphagia. SKIN: No rash. NEUROLOGIC: No focal changes or seizures. PAST MEDICAL HISTORY: The patient's past medical history includes the following: The patient has a past medical history of Ramos continent ileostomy, now has a malfunctioning Ramos ileostomy with prolapse of the nipple valve. Other past medical history includes history of ulcerative colitis and a Ramos continent ileostomy, history of hypertension, history of neurogenic bladder, self catheterizes, history of what sounds like urinary tract infections, history of multiple abdominal surgeries, history of colectomy, history of resection of failed J-pouch, history of cholecystectomy, history of laparotomy and revision of Ramos continent ileostomy in April 2019 and as discussed history of Ramos continent ileostomy in December 2017. ALLERGIES: Include erythromycin and penicillin. Penicillin, she said she has hives when she was a child. SOCIAL HISTORY: Negative for smoking, alcohol, drug abuse. FAMILY HISTORY: Noncontributory. MEDICATIONS: Upon reviewing the MAR, she is on following medications. She is on Prozac or fluoxetine, metoprolol, put her on Bactrim double-strength tablet b.i.d., zolpidem, chlorhexidine, heparin, lidocaine, Zofran as needed. Outside medications noted and reconciliated. PHYSICAL EXAMINATION: VITAL SIGNS: Temperature 98.4, pulse rate 80, respiratory rate 20, blood pressure 127/90, O2 saturation 97% on room air. GENERAL: Alert and responsive, no acute distress. She is oriented x3. HEAD AND NECK: Oral exam, no thrush. Eye exam, no icterus. Normocephalic. HEART: Regular. No gallop or murmur. LUNGS: Clear bilaterally. No rhonchi or rales. No respiratory distress. ABDOMEN: Soft. Positive bowel sounds. Nontender. GENITOURINARY: No CVA tenderness. SKIN: No rash. MUSCULOSKELETAL: No effusion. Legs are without cellulitis. PERIPHERAL VASCULAR: No gangrene or cyanosis. LINE SITES: Without phlebitis. NEUROLOGIC: Intact and nonfocal. LABORATORY AND DIAGNOSTIC DATA: White count 8.2, hemoglobin 13.9. Creatinine 0.8. Potassium 3.4. Again Urinalysis had 20 to 30 white blood cells, mucus cells, 2+ leukocyte esterase. Urine culture is pending at this time. COVID testing now is negative. Nucleic acid application test done today was negative. An outside testing was negative. Initial positive test was done on October 05, 2019 that was on previous admission. Imaging studies, PICC line was placed. Chest x-ray, there is no mention of any infiltrate; however, PICC line. There was urine culture on the previous admission, E. coli was pansensitive. ASSESSMENT AND PLAN: 1. The patient has a history of asymptomatic COVID-19 infection. No treatment was required. She tested previously on October 05, 2019. The patient has had at least two weeks of being asymptomatic since the initial test. Now repeat testing from outside and also here at [facility] shows negative nasopharyngeal nucleic acid testing. This patient continued to be asymptomatic and at this point with negative testing and being asymptomatic for at least 2 weeks, the patient is cleared from ID standpoint from COVID infection; likely this has resolved at this time. The patient is cleared for having surgery from ID standpoint. 2. The patient has a positive urinalysis and possible UTI, history of neurogenic bladder and self catheterization. We will continue Bactrim empirically, pending urine culture results. 3. The patient has malfunctioning Ramos ileostomy and will require revision. With regards to preoperative antibiotics because of penicillin allergy, I would avoid cephalosporin, since she gets hives. Reasonable options would be fluoroquinolones such as ciprofloxacin or levofloxacin plus metronidazole are reasonable options for GI surgery in her case. 4. 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 5. History of ulcerative colitis. 6. Hypertension. 7. History of neurogenic bladder. 8. History of multiple abdominal surgeries including colectomy, cholecystectomy, and proctectomy. 9. History of Ramos continent ileostomy in 2018. 10. Continue treatment per Dr. Martinez and consultants. 11. The patient allergic to penicillin and erythromycin. Penicillin allergy is hives. 12. Social history is negative. 13. Family history is noncontributory. 14. MAR was noted. 15. Case discussed with RN. 16. Case discussed with the patient. Stu Peralta M.D. DR: Sarai JOB#: [id number] CC:
[2019-10-21] VITALS (11 sets, daily range): BP systolic 95–131; BP diastolic 57–93
[2019-10-21] MEDS: D5 1/2NS w/KCl 20mEq 1,000 ML IV SCH ×4 (02:53→19:47)
[2019-10-21 06:24] LABS: BASOPHILS % (AUTO) 0.9 % (0.0-2.0); EOSINOPHILS % (AUTO) 1.5 % (0.0-3.0); HEMATOCRIT 37.9 % (37.0-47.0); HEMOGLOBIN 12.7 G/DL (12.0-16.0); LYMPHOCYTES % (AUTO) 29.9 % (20.0-45.0); MEAN CORPUSCULAR VOLUME 97 FL (80-99); MONOCYTES % (AUTO) 5.6 % (1.0-10.0); NEUTROPHILS % (AUTO) 62.2 % (45.0-75.0); PLATELET COUNT 198 K/UL (150-450); RED CELL DISTRIBUTION WIDTH 10.4 % (11.6-14.8); WHITE BLOOD COUNT 7.9 K/UL (4.8-10.8)
[2019-10-21 06:48] LABS: ALANINE AMINOTRANSFERASE 19 U/L (12-78); ALBUMIN 3.5 G/DL (3.4-5.0); ALBUMIN/GLOBULIN RATIO 1.2 (1.0-2.7); ALKALINE PHOSPHATASE 33 U/L (46-116); ASPARTATE AMINO TRANSFERASE 17 U/L (15-37); BILIRUBIN,TOTAL 0.5 MG/DL (0.2-1.0); BLOOD UREA NITROGEN 8 mg/dL (7-18); CALCIUM 8.2 MG/DL (8.5-10.1); CARBON DIOXIDE 25 MMOL/L (21-32); CHLORIDE 107 MMOL/L (98-107); CREATININE 0.8 MG/DL (0.55-1.30); FERRITIN 405 NG/ML (8-388); POTASSIUM 3.6 MMOL/L (3.5-5.1); SODIUM 140 MMOL/L (136-145)
[2019-10-21 06:50] LABS: IRON 89 ug/dL (50-175); TOTAL IRON BINDING CAPACITY 220 ug/dL (250-450)
[2019-10-21 06:53] LABS: % IRON SATURATION 40 % (15-50)
--- NOTE | 2019-10-21 08:02 | Pre-Procedure Note/Attestation ---
Pre-Procedure Note/Attestation Complete Prior to Procedure Planned Procedure: not applicable Procedure Narrative: Ramso continent ileostomy pouch endoscopy Indications for Procedure Pre-Operative Diagnosis: malfunctioning Ramos pouch with valve prolapse Attestation I attest that I discussed the nature of the procedure; its benefits; risks and complications; and alternatives (and the risks and benefits of such alternatives ), prior to the procedure, with the patient (or the patient's legal phone representative). I attest that, if there was a reasonable possibility of needing a blood transfusion, the patient (or the patient's legal phone representative) was given the [facility] standardized written summary, pursuant to the Og Adalberto Blood Safety Act ([place] Health and Safety Code # 1645, as amended). I attest that I re-evaluated the patient just prior to the surgery and that there has been no change in the patient's H&P, except as documented below:none Brady Martinez MD Oct 21, 2019 08:02
[2019-10-21] MEDS: Bactrim-DS 1 tab ORAL SCH ×2 (08:18→20:15)
[2019-10-21] MEDS: Metoprolol Succinate XL 50mg tab ORAL SCH (08:19)
[2019-10-21] MEDS ORDERED: LR 1000ml ONE (12:00)
[2019-10-21] MEDS ORDERED: LR 1000ml 1,000 ML IVLG SCH (12:09)
[2019-10-21] MEDS ORDERED: HYDROcodone/Acetamin 5/325 tab ORAL PRN (12:15)
[2019-10-21] MEDS ORDERED: fentaNYL 100 mcg/2 mL IV PRN (12:15)
[2019-10-21] MEDS ORDERED: Midazolam 2mg/2ml Inj IVP PRN (12:15)
[2019-10-21] MEDS ORDERED: LORazepam Inj 2mg/ml 1ml IV PRN (12:15)
[2019-10-21] MEDS ORDERED: Ketorolac 30mg Inj IV PRN ×2 (12:15)
[2019-10-21] MEDS ORDERED: Atropine Sulfate 0.4mg/ml inj IVP PRN (12:15)
[2019-10-21] MEDS ORDERED: HYDROcodone/Acetamin 7.5/325 tab ORAL PRN (12:15)
[2019-10-21] MEDS ORDERED: DiphenhydrAMINE 50mg/ml Inj IVP PRN (12:15)
[2019-10-21] MEDS ORDERED: oxyCODONE HCL/Acetaminophen 5/325mg ORAL PRN (12:15)
[2019-10-21] MEDS ORDERED: Hydromorphone 0.5mg/0.5ml inj IVP PRN (12:15)
[2019-10-21] MEDS ORDERED: Labetalol 5mg/ml 20ml vial IV PRN (12:15)
--- NOTE | 2019-10-21 12:16 | Anethesia Preoperative Eval ---
Anesthesia Pre-op PMH/ROS General Date of Evaluation: Oct 21, 2019 Time of Evaluation: 11:51 Anesthesiologist: Briana ASA Score: ASA 2 Mallampati Score Class I : Soft palate, uvula, fauces, pillars visible Class II: Soft palate, uvula, fauces visible Class III: Soft palate, base of uvula visible Class IV: Only hard plate visible Mallampati Classification: Class I Surgeon: Michelle Diagnosis: Malfxn Barnetts Pouch Surgical Procedure: Endoscopy Barnetts pouch Anesthesia History: none Family History: no anesthesia problems Allergies: Coded Allergies: ERYTHROMYCIN BASE (Verified Allergy, Intermediate, rash, 01/22/18) PENICILLINS (Verified Allergy, Intermediate, rash, hi9ves, 01/22/18) Medications: see eMAR Patient NPO?: Yes Past Medical History Cardiovascular: Reports: HTN Gastrointestinal/Genitourinary: Reports: other - Ulcerative Colitis Neurologic/Psychiatric: Reports: depression/anxiety Anesthesia Pre-op Phys. Exam Physician Exam Last Vital Signs Date Time Temp Pulse Resp B/P (MAP) Pulse Ox O2 Delivery O2 Flow Rate FiO2 10/21/19 08:56 Room Air 10/21/19 08:19 81 124/93 10/21/19 08:00 98.4 21 96 Constitutional: NAD Neurologic: CN 2-12 intact Cardiovascular: RRR Respiratory: CTA Gastrointestinal: S/NT/ND Airway Exam Mallampati Score: Class I MO: full ROM: full Teeth: intact Anesthesia Pre-op A/P Labs Hematology Test 10/21/19 04:30 White Blood Count 7.9 K/UL (4.8-10.8) Red Blood Count 3.90 M/UL (4.20-5.40) L Hemoglobin 12.7 G/DL (12.0-16.0) Hematocrit 37.9 % (37.0-47.0) Mean Corpuscular Volume 97 FL (80-99) Mean Corpuscular Hemoglobin 32.6 PG (27.0-31.0) H Mean Corpuscular Hemoglobin Concent 33.6 G/DL (32.0-36.0) Red Cell Distribution Width 10.4 % (11.6-14.8) L Platelet Count 198 K/UL (150-450) Mean Platelet Volume 4.3 FL (6.5-10.1) L Neutrophils (%) (Auto) 62.2 % (45.0-75.0) Lymphocytes (%) (Auto) 29.9 % (20.0-45.0) Monocytes (%) (Auto) 5.6 % (1.0-10.0) Eosinophils (%) (Auto) 1.5 % (0.0-3.0) Basophils (%) (Auto) 0.9 % (0.0-2.0) Coagulation Test 10/21/19 04:30 Prothrombin Time 11.0 SEC (9.30-11.50) Prothromb Time International Ratio 1.0 (0.9-1.1) Activated Partial Thromboplast Time 28 SEC (23-33) Chemistry Test 10/21/19 04:30 Sodium Level 140 MMOL/L (136-145) Potassium Level 3.6 MMOL/L (3.5-5.1) Chloride Level 107 MMOL/L (98-107) Carbon Dioxide Level 25 MMOL/L (21-32) Blood Urea Nitrogen 8 mg/dL (7-18) Creatinine 0.8 MG/DL (0.55-1.30) Estimat Glomerular Filtration Rate > 60 mL/min (>60) Glucose Level 88 MG/DL (74-106) Calcium Level 8.2 MG/DL (8.5-10.1) L Iron Level 89 ug/dL (50-175) Total Iron Binding Capacity 220 ug/dL (250-450) L Percent Iron Saturation 40 % (15-50) Unsaturated Iron Binding 131 ug/dL (112-346) Ferritin 405 NG/ML (8-388) H Total Bilirubin 0.5 MG/DL (0.2-1.0) Aspartate Amino Transf (AST/SGOT) 17 U/L (15-37) Alanine Aminotransferase (ALT/SGPT) 19 U/L (12-78) Alkaline Phosphatase 33 U/L (46-116) L Total Protein 6.3 G/DL (6.4-8.2) L Albumin 3.5 G/DL (3.4-5.0) Globulin 2.8 g/dL Albumin/Globulin Ratio 1.2 (1.0-2.7) Vitamin B12 Level 506 PG/ML (193-986) Folate 30.4 NG/ML (8.6-58.9) Risk Assessment & Plan Assessment: ASA 2 Plan: GA Status Change Before Surgery: Gabe Carcamo MD Oct 21, 2019 12:16
--- NOTE | 2019-10-21 12:18 | Brief Operative Note ---
Immediate Post Operative Note Operative Note Pre-op Diagnosis: malfunctioning Ramos pouch with valve prolapse Procedure: Ramos continent ileostomy pouch endoscopy Post-op Diagnosis: same Post-op Diagnosis: same as pre-op Findings: consistent w/pre-op dx studies Surgeon: deanne Anesthesiologist: Briana Anesthesia: MAC Specimen: none Complications: none Condition: stable Fluids: see anesthesia record Estimated Blood Loss: none Drains: other - 28 Terry to Ramos pouch Implant(s) used?: No Brady Martinez MD Oct 21, 2019 12:18
--- NOTE | 2019-10-21 12:19 | Immediate Post-Op Evaluation ---
Immediate Post-Op Evalulation Immediate Post-Op Evalulation Procedure: Endoscopy Ramos Pouch Date of Evaluation: Oct 21, 2019 Time of Evaluation: 12:29 IV Fluids: 100 LR Blood Products: 0 Estimated Blood Loss: 1 Urinary Output: 0 Blood Pressure Systolic: 115 Blood Pressure Diastolic: 75 Pulse Rate: 65 Respiratory Rate: 16 O2 Sat by Pulse Oximetry: 100 Temperature (Fahrenheit): 98.6 Pain Score (1-10): 0 Nausea: No Vomiting: No Complications 0 Patient Status: awake, reacts, patent, none Hydration Status: adequate Gabe Warren MD Oct 21, 2019 12:19
--- NOTE | 2019-10-21 12:21 | General Progress Note ---
Progress Note Progress Note AVSS Doing well with indwelling Ramos pouch catheter to drainage Endoscopy reveals shortened valve with angulations, consistent with partially reduced valve prolapse. Mucosa pink and pouch mucosa is normal Iron 89 low normal; B12 and folic acid ok Imp: Ramos valve prolapse Plan; Clear liquid diet Continuous drainage of Ramos pouch Venofer f/u labs - may need TPN post-op if albumin is below normal range bowel prep in AM Brady Martinez MD Oct 21, 2019 12:21
--- NOTE | 2019-10-21 12:21 | 48 Hour Post Anesthesia Eval ---
Post Anesthesia Evaluation Procedure: Endoscopy Ramos Pouch Date of Evaluation: Oct 21, 2019 Time of Evaluation: 14:34 Blood Pressure Systolic: 126 0: 74 Pulse Rate: 71 Respiratory Rate: 18 Temperature (Fahrenheit): 98.6 O2 Sat by Pulse Oximetry: 100 Airway: patent Nausea: No Vomiting: No Pain Intensity: 0 Hydration Status: adequate Cardiopulmonary Status: Stable Mental Status/LOC: patient returned to baseline Follow-up Care/Observations: 0 Post-Anesthesia Complications: 0 Follow-up care needed: N/A Gabe Warren MD Oct 21, 2019 12:21
--- NOTE | 2019-10-21 14:15 | Procedure Note ---
DATE OF PROCEDURE: 10/21/2019 ENDOSCOPY PROCEDURE REPORT ENDOSCOPIST: Brady Martinez MD. U.S. SENATOR: None. ANESTHESIOLOGIST: Gabe Warren MD. TYPE OF ANESTHESIA: MAC IV sedation. PRE-ENDOSCOPIC DIAGNOSES: 1. Malfunctioning Ramos continent ileostomy with prolapse of the nipple valve. 2. History of ulcerative colitis. 3. Status post multiple abdominal operations including total colectomy with ileoanal J-pouch followed by resection of failed J-pouch, cholecystectomy, and creation of Ramos continent ileostomy in December 2017 with revision of the redundant access segment, May 06, 2019. POST-ENDOSCOPIC DIAGNOSES: 1. Malfunctioning Ramos continent ileostomy with prolapse of the nipple valve. 2. History of ulcerative colitis. 3. Status post multiple abdominal operations including total colectomy with ileoanal J-pouch followed by resection of failed J-pouch, cholecystectomy, and creation of Ramos continent ileostomy in December 2017 with revision of the redundant access segment, May 06, 2019. ENDOSCOPY PERFORMED: Ramos continent ileostomy pouch endoscopy. DESCRIPTION OF PROCEDURE: The patient was positioned supine in the GI lab with intravenous sedation given by Anesthesia. I first irrigated the indwelling 28-Portuguese Terry catheter in her pouch that had been draining continuously and then removed that catheter. Using a GIF-P140 endoscope, the stoma was entered. There were two angulations that had to be negotiated to get to the pouch lumen. The distance to the tip of the the valve was 15 cm definitely redundant. The pouch was distensible and mucosa normal. Retroflexed views revealed, but circumferentially well-formed. Withdrawal views confirmed the above findings. After removing the endoscope, I was able to insert a 28-Portuguese Terry catheter into the pouch confirmed by irrigation and taped it to the skin with a dressing over the stoma and connected the catheter to continuous gravity drainage bag. The patient tolerated the endoscopy well and will need laparotomy with surgical revision of her Ramos continent ileostomy pouch in. Alisson Nascimento JOB#: [id number] CC:
[2019-10-21] MEDS ORDERED: NS Irrig 1000ml ONE (18:40)
[2019-10-21] MEDS: Dyna-Hex 2% Top Sol 2oz TOPIC SCH (20:14)
[2019-10-21] MEDS: Zolpidem 5mg tab ORAL PRN (20:15)
[2019-10-21] MEDS: Iron Sucrose 100 MG in NS 55 ML IV SCH (20:15)
[2019-10-22] VITALS: BP_SYST 11; BP_SYST 111; BP_DIAS 74
[2019-10-22 04:00] VITALS: BP 117/77
[2019-10-22 05:54] LABS: BASOPHILS % (AUTO) 0.9 % (0.0-2.0); EOSINOPHILS % (AUTO) 1.7 % (0.0-3.0); HEMATOCRIT 36.5 % (37.0-47.0); HEMOGLOBIN 12.4 G/DL (12.0-16.0); LYMPHOCYTES % (AUTO) 23.1 % (20.0-45.0); MEAN CORPUSCULAR VOLUME 97 FL (80-99); MONOCYTES % (AUTO) 5.8 % (1.0-10.0); NEUTROPHILS % (AUTO) 68.5 % (45.0-75.0); PLATELET COUNT 216 K/UL (150-450); RED BLOOD COUNT 3.77 M/UL (4.20-5.40); RED CELL DISTRIBUTION WIDTH 10.6 % (11.6-14.8); WHITE BLOOD COUNT 7.7 K/UL (4.8-10.8)
[2019-10-22 06:19] LABS: ALANINE AMINOTRANSFERASE 22 U/L (12-78); ALBUMIN 3.4 G/DL (3.4-5.0); ALBUMIN/GLOBULIN RATIO 1.2 (1.0-2.7); ALKALINE PHOSPHATASE 33 U/L (46-116); ASPARTATE AMINO TRANSFERASE 15 U/L (15-37); BILIRUBIN,TOTAL 0.3 MG/DL (0.2-1.0); BLOOD UREA NITROGEN 7 mg/dL (7-18); CALCIUM 8.3 MG/DL (8.5-10.1); CREATININE 0.8 MG/DL (0.55-1.30)
[2019-10-22 06:49] LABS: ANION GAP 9 mmol/L (5-15); CARBON DIOXIDE 26 MMOL/L (21-32); CHLORIDE 105 MMOL/L (98-107); POTASSIUM 3.6 MMOL/L (3.5-5.1); SODIUM 139 MMOL/L (136-145)
[2019-10-22] MEDS ORDERED: Dextrose 10% 1,000 ML IV PRN (07:15)
[2019-10-22 07:30] LABS: PHOSPHORUS 2.6 MG/DL (2.5-4.9)
[2019-10-22 08:00] VITALS: BP 127/90
[2019-10-22] MEDS: Metoprolol Succinate XL 50mg tab ORAL SCH (08:19)
[2019-10-22] MEDS: Bactrim-DS 1 tab ORAL SCH (08:19)
[2019-10-22] MEDS: Phytonadione 10 mg/mL 1ml amp SUBQ SCH (08:19)
[2019-10-22] MEDS: Magnesium Sulfate 1gm/100ml IVPB SCH ×4 (11:47→14:52)
[2019-10-22] MEDS: Neomycin Sulfate 500mg Tab ORAL SCH ×3 (11:47→20:26)
[2019-10-22 12:00] VITALS: BP 141/94
--- NOTE | 2019-10-22 13:57 | General Progress Note ---
Progress Note Progress Note AVSS Tolerating clear liquids with indwelling Ramos pouch catheter to drainage abdomen soft, valve prolapse staying reduced Hgb 12.4 Mg 1.6 Albumin 3.4 Imp: Malfunctioning Ramos pouch Plan: Start TPN tonight Mg infusions Surgery in AM Levaquin and Flagyl reva-op and pre-op SQ heparin x 1 Full discussion re surgery indications, alternatives, options (valve revision vs. new valve) and risks including bleeding, infection, injury to adjacent structures or organs, recurrent difficulty with the Ramos Pouch function or structure, possible need for relocation of stoma to LLQ, possible gastrostomy, DVT despite prophylaxis, etc; all questions answered Brady Martinez MD Oct 22, 2019 13:57
[2019-10-22] MEDS ORDERED: Potassium Phosphate 15mm/250ml 250 ML IVPB ONE (15:00)
[2019-10-22] MEDS: D5 1/2NS w/KCl 20mEq 1,000 ML IV SCH ×2 (15:43→20:27)
[2019-10-22 16:00] VITALS: BP 118/76
--- NOTE | 2019-10-22 17:02 | Infectious Diseases Prog Note ---
Assessment/Plan Assessment/Plan ASSESSMENT AND PLAN: 1. hx asymptomatic covid-19 infection - resolved, re-testing negative malfunctioning Ramos ileostomy - revision planned - reva-operative antibiotics - levofloxacin plus flagyl - cleared for surgery from ID standpoint - monitor labs and clinically post-op 2. ? uti - urine culture with - 20-30, 000 colonies - likely contaminant, discontinue bactrim 3. The patient has malfunctioning Ramos ileostomy - sarika need revision 4. 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 5. History of ulcerative colitis. 6. Hypertension. 7. History of neurogenic bladder. 8. History of multiple abdominal surgeries including colectomy, cholecystectomy, and proctectomy. 9. History of Ramos continent ileostomy in 2018. 10. Continue treatment per Dr. Martinez and consultants. 11. The patient allergic to penicillin and erythromycin. Penicillin allergy is hives. 12. Social history is negative. 13. Family history is noncontributory. 14. MAR was noted. 15. Case discussed with RN. 16. Case discussed with the patient. Subjective Constitutional: Denies: fever, chills, fatigue HEENT: Denies: dysphagia, congestion Respiratory: Denies: shortness of breath Breasts: Denies: swelling Cardiovascular: Denies: chest pain Gastrointestinal/Abdominal: Denies: nausea, vomiting, diarrhea Genitourinary: Reports: other - no cardenas Neurologic: Denies: headache Psychiatric: Denies: depression Skin: Denies: rash Hematologic: Denies: bleeding Musculoskeletal: Denies: pain Allergies: Coded Allergies: ERYTHROMYCIN BASE (Verified Allergy, Intermediate, rash, 01/22/18) PENICILLINS (Verified Allergy, Intermediate, rash, hi9ves, 01/22/18) Objective Last 24 Hour Vital Signs Date Time Temp Pulse Resp B/P (MAP) Pulse Ox O2 Delivery O2 Flow Rate FiO2 10/22/19 12:00 98.2 70 16 141/94 (110) 99 10/22/19 09:00 Room Air 10/22/19 08:19 92 127/90 10/22/19 08:00 98.8 92 16 127/90 (102) 99 10/22/19 04:00 97.9 77 16 117/77 (90) 99 10/22/19 00:00 98.0 72 17 111/74 (86) 99 10/21/19 21:00 Room Air 10/21/19 20:00 98.5 65 16 119/80 (93) 98 Height (Feet): 5 Height (Inches): 5.00 Weight (Pounds): 125 General Appearance: no acute distress HEENT: normocephalic, atraumatic, anicteric, mucous membranes moist Respiratory/Chest: lungs clear, normal breath sounds, no respiratory distress, no accessory muscle use Cardiovascular: normal rate, regular rhythm, no gallop/murmur, no JVD Abdomen: normal bowel sounds, soft, non tender, no organomegaly, non distended Genitourinary: other - no cardenas Extremities: no cyanosis Skin: no rash Neurologic/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 Complete 10/20/19 15:00 Straight Cath Urine Culture - Preliminary Gram Positive Cocci Resulted Microbiology Date/Time Source Procedure Growth Status 10/20/19 11:24 Nasal Nares MRSA Culture - Final NO METHICILLIN RESISTANT STAPH AUREUS... Complete 10/20/19 10:20 Nasopharynx SARS-CoV-2 RdRp Gene Assay - Final Complete 10/20/19 15:00 Straight Cath Urine Culture - Preliminary Gram Positive Cocci Resulted Laboratory Tests Test 10/22/19 04:45 White Blood Count 7.7 K/UL (4.8-10.8) Red Blood Count 3.77 M/UL (4.20-5.40) L Hemoglobin 12.4 G/DL (12.0-16.0) Hematocrit 36.5 % (37.0-47.0) L Mean Corpuscular Volume 97 FL (80-99) Mean Corpuscular Hemoglobin 33.1 PG (27.0-31.0) H Mean Corpuscular Hemoglobin Concent 34.1 G/DL (32.0-36.0) Red Cell Distribution Width 10.6 % (11.6-14.8) L Platelet Count 216 K/UL (150-450) Mean Platelet Volume 4.7 FL (6.5-10.1) L Neutrophils (%) (Auto) 68.5 % (45.0-75.0) Lymphocytes (%) (Auto) 23.1 % (20.0-45.0) Monocytes (%) (Auto) 5.8 % (1.0-10.0) Eosinophils (%) (Auto) 1.7 % (0.0-3.0) Basophils (%) (Auto) 0.9 % (0.0-2.0) Sodium Level 139 MMOL/L (136-145) Potassium Level 3.6 MMOL/L (3.5-5.1) Chloride Level 105 MMOL/L (98-107) Carbon Dioxide Level 26 MMOL/L (21-32) Anion Gap 9 mmol/L (5-15) Blood Urea Nitrogen 7 mg/dL (7-18) Creatinine 0.8 MG/DL (0.55-1.30) Estimat Glomerular Filtration Rate > 60 mL/min (>60) Glucose Level 85 MG/DL (74-106) Calcium Level 8.3 MG/DL (8.5-10.1) L Phosphorus Level 2.6 MG/DL (2.5-4.9) Magnesium Level 1.6 MG/DL (1.8-2.4) L Total Bilirubin 0.3 MG/DL (0.2-1.0) Aspartate Amino Transf (AST/SGOT) 15 U/L (15-37) Alanine Aminotransferase (ALT/SGPT) 22 U/L (12-78) Alkaline Phosphatase 33 U/L (46-116) L Total Protein 6.2 G/DL (6.4-8.2) L Albumin 3.4 G/DL (3.4-5.0) Globulin 2.8 g/dL Albumin/Globulin Ratio 1.2 (1.0-2.7) Current Medications Medications (Trade) Dose Ordered Sig/Shannan Route PRN Reason Start Time Stop Time Status Last Admin Dose Admin Chlorhexidine Gluconate (Lena-Hex 2%) 1 applic DAILY@2000 TOPIC 10/20/19 20:00 01/18/20 19:59 10/21/19 20:14 Dextrose 1,000 ml @ 0 mls/hr Q24H PRN IV PN interrupted or unavailable 10/22/19 07:15 11/21/19 07:14 Dextrose (Dextrose 50%) 25 ml Q30M PRN IV Hypoglycemia 10/22/19 07:15 01/20/20 07:14 Dextrose (Dextrose 50%) 50 ml Q30M PRN IV Hypoglycemia 10/22/19 07:15 01/20/20 07:14 Dextrose/ Electrolytes 1,000 ml @ 30 mls/hr Q24H IV 10/22/19 20:00 11/21/19 19:59 Dextrose/ Electrolytes 1,000 ml @ 50 mls/hr Q20H IV 10/21/19 19:46 10/22/19 19:59 10/22/19 15:43 Fat Emulsion Intravenous 216 ml/Amino Acids/ Electrolytes/ Dextrose 1,656 ml @ 69 mls/hr Q24H IV 10/22/19 20:00 01/20/20 19:59 Fluoxetine HCl (PROzac) 40 mg DAILY ORAL 10/21/19 09:00 11/20/19 08:59 10/22/19 08:20 Heparin Sodium (Porcine) (Heparin 5000 units/ml) 5,000 units ONCE ONCE SUBQ 10/23/19 10:00 10/23/19 10:01 Insulin Aspart (NovoLOG) Q6HR SUBQ 10/23/19 00:00 01/21/20 00:00 Iron Sucrose 100 mg/Sodium Chloride 60 ml @ 240 mls/hr BEDTIME IV 10/21/19 21:00 10/25/19 21:14 10/21/19 20:15 Levofloxacin 100 ml @ 100 mls/hr Q24H IVPB 10/23/19 10:00 10/30/19 09:59 Metoprolol Succinate (Toprol XL) 50 mg DAILY ORAL 10/21/19 09:00 01/19/20 08:59 10/22/19 08:19 Metronidazole 100 ml @ 100 mls/hr Q6HR IVPB 10/23/19 00:00 10/30/19 00:00 Neomycin Sulfate (Neomycin Sulfate) 500 mg TID@12,16,20 ORAL 10/22/19 12:00 10/22/19 20:01 10/22/19 15:44 Ondansetron HCl (Zofran) 4 mg Q4H PRN IVP Nausea & Vomiting 10/20/19 12:45 11/19/19 12:44 10/22/19 12:14 Phytonadione (Vitamin K) 10 mg ONCE A WEEK SUBQ 10/22/19 07:15 01/20/20 07:14 10/22/19 08:19 Potassium Phosphate 250 ml @ 62.5 mls/hr ONCE ONCE IVPB 10/22/19 15:00 10/22/19 18:59 10/22/19 15:42 Zolpidem Tartrate (Ambien) 10 mg HSPRN PRN ORAL Insomnia 10/20/19 20:51 10/27/19 20:50 10/21/19 20:15 Stu Peralta MD Oct 22, 2019 17:02
[2019-10-22 20:00] VITALS: BP 120/80
[2019-10-22] MEDS: Dyna-Hex 2% Top Sol 2oz TOPIC SCH (20:26)
[2019-10-22] MEDS: Zolpidem 5mg tab ORAL PRN (20:27)
[2019-10-22] MEDS: Iron Sucrose 100 MG in NS 55 ML IV SCH (20:27)
[2019-10-22] MEDS: TPN IV SCH (20:28)
[2019-10-22] MEDS: FAT EMULSION 20% IV SCH (20:28)
[2019-10-22] MEDS ORDERED: Fat Emulsion Iv 20% 250 ML IV SCH (21:00)
[2019-10-22] MEDS: NovoLOG Insulin Flexpen SUBQ SCH (23:52)
[2019-10-23] VITALS (18 sets, daily range): BP systolic 76–136; BP diastolic 46–89
[2019-10-23] MEDS: NovoLOG Insulin Flexpen SUBQ SCH ×4 (05:39→23:46)
[2019-10-23 06:01] LABS: BASOPHILS % (AUTO) 1.3 % (0.0-2.0); HEMATOCRIT 42.1 % (37.0-47.0); LYMPHOCYTES % (AUTO) 23.1 % (20.0-45.0); MEAN CORPUSCULAR VOLUME 97 FL (80-99); MONOCYTES % (AUTO) 6.1 % (1.0-10.0); NEUTROPHILS % (AUTO) 67.5 % (45.0-75.0); PLATELET COUNT 269 K/UL (150-450); RED BLOOD COUNT 4.33 M/UL (4.20-5.40); RED CELL DISTRIBUTION WIDTH 10.4 % (11.6-14.8); WHITE BLOOD COUNT 7.9 K/UL (4.8-10.8)
[2019-10-23 06:09] LABS: ALANINE AMINOTRANSFERASE 25 U/L (12-78); ALBUMIN 3.7 G/DL (3.4-5.0); ALBUMIN/GLOBULIN RATIO 1.1 (1.0-2.7); ALKALINE PHOSPHATASE 36 U/L (46-116); ANION GAP 6 mmol/L (5-15); ASPARTATE AMINO TRANSFERASE 18 U/L (15-37); BILIRUBIN,TOTAL 0.3 MG/DL (0.2-1.0); BLOOD UREA NITROGEN 7 mg/dL (7-18); CALCIUM 8.3 MG/DL (8.5-10.1); CARBON DIOXIDE 30 MMOL/L (21-32); CHLORIDE 103 MMOL/L (98-107); CREATININE 0.9 MG/DL (0.55-1.30); POTASSIUM 4.3 MMOL/L (3.5-5.1); SODIUM 139 MMOL/L (136-145)
--- NOTE | 2019-10-23 08:03 | Pre-Procedure Note/Attestation ---
Pre-Procedure Note/Attestation Complete Prior to Procedure Planned Procedure: not applicable Procedure Narrative: laparotomy with revision of Ramos continent ileostomy, possible stoma relocation, possible gastrostomy Indications for Procedure Pre-Operative Diagnosis: malfunctioning Ramos pouch with valve prolapse Attestation I attest that I discussed the nature of the procedure; its benefits; risks and complications; and alternatives (and the risks and benefits of such alternatives ), prior to the procedure, with the patient (or the patient's legal resources representative). I attest that, if there was a reasonable possibility of needing a blood transfusion, the patient (or the patient's legal resources representative) was given the [place] Department of Health Services standardized written summary, pursuant to the [place] Blood Safety Act ([place] Health and Safety Code # 1645, as amended). I attest that I re-evaluated the patient just prior to the surgery and that there has been no change in the patient's H&P, except as documented below:none Brady Martinez MD Oct 23, 2019 08:03
[2019-10-23] MEDS: Metoprolol Succinate XL 50mg tab ORAL SCH (09:11)
[2019-10-23] MEDS ORDERED: Heparin 5000 units/ml inj SUBQ ONE (10:00)
[2019-10-23] MEDS ORDERED: NeoSporin Gu Irrig 1ml Amp IRRIG ONE (10:46)
[2019-10-23] MEDS ORDERED: Bacitracin 50000 Units Vial ONE (10:46)
[2019-10-23] MEDS ORDERED: Tubing IV Secondary IV ONE ×2 (11:35→18:37)
[2019-10-23] MEDS ORDERED: LR 1000ml 1,000 ML IVLG SCH ×2 (11:35→14:10)
[2019-10-23] MEDS ORDERED: NS Irrig 1000ml ONE ×3 (11:35→18:37)
[2019-10-23] MEDS ORDERED: Sodium Chloride 10ml vial INJ ONE (11:38)
[2019-10-23] MEDS ORDERED: Lidocaine 1% Plain 30 ml INJ ONE (11:38)
[2019-10-23] MEDS ORDERED: Lidocaine 1% MPF 10mg/ml 5ml ONE (11:38)
[2019-10-23] MEDS ORDERED: Labetalol 5mg/ml 20ml vial IV PRN ×2 (11:45→14:15)
[2019-10-23] MEDS ORDERED: fentaNYL 100 mcg/2 mL IV PRN ×2 (11:45→14:15)
[2019-10-23] MEDS ORDERED: HYDROcodone/Acetamin 5/325 tab ORAL PRN ×2 (11:45→14:15)
[2019-10-23] MEDS ORDERED: oxyCODONE HCL/Acetaminophen 5/325mg ORAL PRN ×2 (11:45→14:15)
[2019-10-23] MEDS ORDERED: Hydromorphone 0.5mg/0.5ml inj IVP PRN ×2 (11:45→14:15)
[2019-10-23] MEDS ORDERED: LORazepam Inj 2mg/ml 1ml IV PRN ×2 (11:45→14:15)
[2019-10-23] MEDS ORDERED: Acetaminophen (Non formulary) 100 ML IV ONE ×2 (11:45→14:15)
[2019-10-23] MEDS ORDERED: Ketorolac 30mg Inj IV PRN ×5 (11:45→14:15)
[2019-10-23] MEDS ORDERED: HYDROcodone/Acetamin 7.5/325 tab ORAL PRN ×2 (11:45→14:15)
[2019-10-23] MEDS ORDERED: Atropine Sulfate 0.4mg/ml inj IVP PRN ×2 (11:45→14:15)
[2019-10-23] MEDS ORDERED: DiphenhydrAMINE 50mg/ml Inj IVP PRN ×3 (11:45→14:15)
[2019-10-23] MEDS ORDERED: Midazolam 2mg/2ml Inj IVP PRN ×2 (11:45→14:15)
[2019-10-23] MEDS ORDERED: LR 1000ml ONE (12:00)
[2019-10-23] MEDS ORDERED: Sterile Water Irrig 1000ml IRRIG ONE (12:00)
--- NOTE | 2019-10-23 12:27 | Immediate Post-Op Evaluation ---
Immediate Post-Op Evalulation Immediate Post-Op Evalulation Procedure: Endoscopy Ramos Pouch Date of Evaluation: Oct 23, 2019 Time of Evaluation: 14:07 IV Fluids: 400 LR Blood Products: 0 Estimated Blood Loss: 40 Urinary Output: 200 Blood Pressure Systolic: 126 Blood Pressure Diastolic: 78 Pulse Rate: 99 Respiratory Rate: 18 O2 Sat by Pulse Oximetry: 100 Temperature (Fahrenheit): 98.8 Pain Score (1-10): 2 Nausea: No Vomiting: No Complications 0 Patient Status: awake, reacts, patent, extubated, none Hydration Status: adequate Dru mg Flagyl IV Given Within 1 Hr of Incision: Yes Time Given: 12:07 Gabe Warren MD Oct 23, 2019 12:27
[2019-10-23] MEDS ORDERED: Phenylephrine 10mg/ml Vial ONE (13:18)
[2019-10-23] MEDS ORDERED: Glycopyrrolate 0.2mg/ml 1ml Vial ONE (13:21)
[2019-10-23] MEDS ORDERED: Neostigmine 1mg/ml 10ml Inj ONE (13:21)
[2019-10-23] MEDS ORDERED: PCA Education Pamphlet MISC ONE (14:00)
[2019-10-23] MEDS ORDERED: Naloxone 0.4mg/ml Inj IVP PRN (14:00)
[2019-10-23] MEDS ORDERED: Rate Change PCA 1 Each MISC PRN (14:00)
[2019-10-23] MEDS ORDERED: LORazepam 1mg tab SL PRN (14:00)
--- NOTE | 2019-10-23 14:03 | Brief Operative Note ---
Immediate Post Operative Note Operative Note Pre-op Diagnosis: malfunctioning Ramos pouch with valve prolapse Procedure: laparotomy with revision of Ramos continent ileostomy valve prolapse Post-op Diagnosis: same Post-op Diagnosis: same as pre-op Findings: consistent w/pre-op dx studies Surgeon: deanne Card Cleaner: leora Anesthesiologist: kinjal Anesthesia: general Specimen: none Complications: none Condition: stable Fluids: see anesthesia record Estimated Blood Loss: minimal Drains: other - 28 Terry to Ramos pouch Implant(s) used?: No Brady Martinez MD Oct 23, 2019 14:03
[2019-10-23] MEDS ORDERED: Metoclopramide 10mg/2ml Inj IVP PRN (14:15)
[2019-10-23] MEDS ORDERED: Meperidine 25mg/0.5ml Inj (FOR RIGORS ONLY) IV PRN (14:15)
[2019-10-23] MEDS: PCA Morphine 1mg/ml 30 ML IV PRN ×2 (14:27→20:39)
--- NOTE | 2019-10-23 16:45 | Operative Note - Dictated ---
DATE OF OPERATION: 10/23/2019 SURGEON: Brady Martinez MD CLOTHING MAN SURGEON: Jarvis Duong MD. ANESTHESIOLOGIST: Gabe Warren MD. TYPE OF ANESTHESIA: General endotracheal. PREOPERATIVE DIAGNOSES: 1. Malfunctioning Ramos continent ileostomy with prolapse of the nipple valve. 2. History of ulcerative colitis. 3. STATUS POST MULTIPLE ABDOMINAL OPERATIONS: 3.1. Total colectomy with ileoanal J-pouch and diverting ileostomy in January 2009. 3.2. Resection of failed J-pouch with abdominoperineal proctectomy and April ileostomy December 2009. 3.3. Open cholecystectomy January 2017. 3.4. Ramos continent ileostomy December 2017. 3.5. Laparotomy with revision of Ramos continent ileostomy stoma and redundant access segment May 06, 2019. POSTOPERATIVE DIAGNOSES: 1. Malfunctioning Ramos continent ileostomy with prolapse of the nipple valve. 2. History of ulcerative colitis. 3. STATUS POST MULTIPLE ABDOMINAL OPERATIONS: 3.1. Total colectomy with ileoanal J-pouch and diverting ileostomy in January 2009. 3.2. Resection of failed J-pouch with abdominoperineal proctectomy and April ileostomy December 2009. 3.3. Open cholecystectomy January 2017. 3.4. Ramos continent ileostomy December 2017. 3.5. Laparotomy with revision of Ramos continent ileostomy stoma and redundant access segment May 06, 2019. OPERATION PERFORMED: Laparotomy with revision of Ramos continent ileostomy pouch valve prolapse. DESCRIPTION OF PROCEDURE: The patient was taken to the operating room and under general endotracheal anesthesia with sequential compression device stockings and Cardenas catheter in place and having received preoperative intravenous antibiotics and subcutaneous heparin, the patient was prepped and draped in the usual fashion with a Tegaderm over the stoma. Previous midline incision was reopened from just above the umbilicus to the pubis. Unlike the previous surgery, there were moderately severe adhesions to the undersurface of the abdominal wall and one enterotomy was created. This was closed with 3-0 chromic and 3-0 silk without any compromise of the lumen. Finally, free peritoneal cavity was entered. All the bowel loops were normal. The pouch was mobilized from mild adhesions out of the pelvis and taken off of the bladder flap. Initially, I put a 28-Monegasque Cardenas through the stoma into the pouch and manually occluded the afferent bowel. The pouch was distended with 350 mL of saline. Upon removing the catheter, there was no incontinence, but some difficulty reinserting it, but it was manipulated and the pouch decompressed. Along the anterior pouch wall, a short pouch enterotomy was created. The 28-Monegasque Cardenas was visualized. The nipple valve was grasped with Tesha clamps and with manipulation, the prolapse reduced and the bowel completely reformed. The mesentery was palpated posteriorly. Using a TA-60 green cartridge, one row of rivera was placed 90 degrees away from the mesentery. Then through a separate pouch enterotomy near the apex of the pouch, the stapler was introduced with the lower blade into the pouch and the lumen of the valve and then the valve stapled to the anterior pouch wall. The small pouch enterotomy was closed with 3-0 chromic and 3-0 silk and then I used two sutures of 2-0 Prolene on SH needles with the knots tied on the outside of the pouch and did horizontal mattress sutures to further secure the valve to the anterior pouch wall. Now the 28-Monegasque Cardenas catheter went in and out of the pouch without any difficulty. The pouch enterotomy was closed with continuous full-thickness 2-0 chromic locking suture followed by imbricating 3-0 silk. The pouch was distended with the afferent bowel manually occluded. It was filled with 400 mL of saline. There was no extravasation and no incontinence when the catheter was removed. Then the 28 Monegasque cardenas catheter was reintroduced and the pouch decompressed. The catheter was positioned in the apex of the pouch with the pouch in the pelvis and the catheter was sutured to the skin with two sutures of 2-0 silk. It was flushed and connected to a gravity drainage bag. The pelvis was inspected as was the rest of the operative field and hemostasis was secure. The midline incision was closed with one layer using looped #1 PDS followed by antibiotic irrigation and skin closed with rivera. Dry sterile dressings were applied. Final sponge and needle counts were correct. The patient tolerated the procedure well and left the operating room in good condition. Brady Martinez M.D. DR: Jonathan JOB#: [id number] CC: SHILOH
--- NOTE | 2019-10-23 18:22 | 48 Hour Post Anesthesia Eval ---
Post Anesthesia Evaluation Procedure: Revision Ramos Pouch Date of Evaluation: Oct 23, 2019 Time of Evaluation: 18:21 Blood Pressure Systolic: 95 0: 65 Pulse Rate: 90 Respiratory Rate: 17 Temperature (Fahrenheit): 98.7 O2 Sat by Pulse Oximetry: 98 Airway: patent Nausea: No Vomiting: No Pain Intensity: 3 Hydration Status: adequate Cardiopulmonary Status: Stable Mental Status/LOC: patient returned to baseline Follow-up Care/Observations: 0 Post-Anesthesia Complications: 0 Follow-up care needed: N/A Gabe Warren MD Oct 23, 2019 18:22
[2019-10-23] MEDS ORDERED: NS 275ml ONE (18:37)
[2019-10-23] MEDS: PCA shift volume MISC SCH (19:08)
[2019-10-23] MEDS: D5 1/2NS w/KCl 20mEq 1,000 ML IV SCH (20:30)
[2019-10-23] MEDS: Dyna-Hex 2% Top Sol 2oz TOPIC SCH (20:36)
[2019-10-23] MEDS: Iron Sucrose 100 MG in NS 55 ML IV SCH (20:36)
[2019-10-23] MEDS: TPN IV SCH (20:38)
[2019-10-23] MEDS: FAT EMULSION 20% IV SCH (20:38)
[2019-10-24] VITALS: BP 107/68
[2019-10-24 00:35] LABS: APPEARANCE,URINE CLEAR; BILIRUBIN, URINE NEGATIVE (NEGATIVE); GLUCOSE, URINE (UA) 3+ (NEGATIVE); KETONES,URINE NEGATIVE (NEGATIVE); LEUKOCYTE ESTERASE ,URINE 1+ (NEGATIVE); NITRITE,URINE POSITIVE (NEGATIVE); PH,URINE 5 (4.5-8.0); PROTEIN,URINE NEGATIVE (NEGATIVE); UROBILINOGEN,URINE NORMAL MG/DL (0.0-1.0)
[2019-10-24 01:00] LABS: COLOR,URINE YELLOW
[2019-10-24 04:00] VITALS: BP 116/78
[2019-10-24] MEDS: NovoLOG Insulin Flexpen SUBQ SCH ×4 (05:26→23:55)
[2019-10-24] MEDS: PCA Morphine 1mg/ml 30 ML IV PRN ×2 (06:00→14:27)
[2019-10-24] MEDS: D5 1/2NS w/KCl 20mEq 1,000 ML IV SCH ×2 (06:00→08:30)
[2019-10-24 06:13] LABS: HEMATOCRIT 35.1 % (37.0-47.0); MEAN CORPUSCULAR VOLUME 97 FL (80-99); PLATELET COUNT 197 K/UL (150-450); RED BLOOD COUNT 3.61 M/UL (4.20-5.40); RED CELL DISTRIBUTION WIDTH 10.6 % (11.6-14.8); WHITE BLOOD COUNT 15.3 K/UL (4.8-10.8)
[2019-10-24 06:57] LABS: ALANINE AMINOTRANSFERASE 412 U/L (12-78); ALBUMIN 3.1 G/DL (3.4-5.0); ALBUMIN/GLOBULIN RATIO 1.1 (1.0-2.7); ALKALINE PHOSPHATASE 50 U/L (46-116); ANION GAP 6 mmol/L (5-15); ASPARTATE AMINO TRANSFERASE 366 U/L (15-37); BILIRUBIN,TOTAL 0.3 MG/DL (0.2-1.0); BLOOD UREA NITROGEN 10 mg/dL (7-18); CALCIUM 7.8 MG/DL (8.5-10.1); CARBON DIOXIDE 30 MMOL/L (21-32); CHLORIDE 105 MMOL/L (98-107); CREATININE 0.7 MG/DL (0.55-1.30); PHOSPHORUS 2.4 MG/DL (2.5-4.9); POTASSIUM 3.5 MMOL/L (3.5-5.1); SODIUM 140 MMOL/L (136-145)
[2019-10-24] MEDS: PCA shift volume MISC SCH ×2 (07:21→19:26)
[2019-10-24 08:00] VITALS: BP 139/79
[2019-10-24] MEDS ORDERED: Naloxone 0.4mg/ml Inj IVP PRN (08:00)
[2019-10-24] MEDS ORDERED: Rate Change PCA 1 Each MISC PRN (08:00)
--- NOTE | 2019-10-24 08:11 | General Progress Note ---
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
[2019-10-24] MEDS ORDERED: Tubing IV Secondary IV ONE (08:27)
[2019-10-24] MEDS ORDERED: NS Irrig 1000ml ONE (08:27)
[2019-10-24] MEDS: Metoprolol Succinate XL 50mg tab ORAL SCH (08:48)
[2019-10-24] MEDS: Potassium Phosphate 15mm/250ml 250 ML IVPB SCH ×2 (09:17→14:20)
[2019-10-24] MEDS ORDERED: DiphenhydrAMINE 50mg/ml Inj IVP PRN (10:00)
[2019-10-24 12:00] VITALS: BP 121/84
[2019-10-24 16:00] VITALS: BP 118/76
--- NOTE | 2019-10-24 19:16 | Infectious Diseases Prog Note ---
Assessment/Plan Assessment/Plan ASSESSMENT AND PLAN: 1. hx asymptomatic covid-19 infection - resolved, re-testing negative malfunctioning Ramos ileostomy - s/p revision urine culture with only 20-30,000 enterococcus - considered non-significant elevated LFT's, TPN - reva-operative antibiotics - levofloxacin plus flagyl - d/w pharmacy - flagyl adjusted for elevated LFT's, repeat ua/uc - post-operative leukocytosis noted, monitor closely - monitor labs and clinically post-op 2. ? uti - urine culture with - 20-30, 000 colonies - likely contaminant, discontinue bactrim 3. The patient has malfunctioning Ramos ileostomy - sarika need revision 4. 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 5. History of ulcerative colitis. 6. Hypertension. 7. History of neurogenic bladder. 8. History of multiple abdominal surgeries including colectomy, cholecystectomy, and proctectomy. 9. History of Ramos continent ileostomy in 2018. 10. Continue treatment per Dr. Martinez and consultants. 11. The patient allergic to penicillin and erythromycin. Penicillin allergy is hives. 12. Social history is negative. 13. Family history is noncontributory. 14. MAR was noted. 15. Case discussed with RN. 16. Case discussed with the patient. Subjective Constitutional: Denies: fever HEENT: Denies: congestion Respiratory: Denies: shortness of breath Gastrointestinal/Abdominal: Denies: nausea, vomiting Genitourinary: Reports: other - + cardenas Neurologic: Denies: headache Psychiatric: Denies: depression Skin: Denies: rash Hematologic: Denies: bleeding Musculoskeletal: Denies: pain Allergies: Coded Allergies: ERYTHROMYCIN BASE (Verified Allergy, Intermediate, rash, 01/22/18) PENICILLINS (Verified Allergy, Intermediate, rash, hi9ves, 01/22/18) Objective Last 24 Hour Vital Signs Date Time Temp Pulse Resp B/P (MAP) Pulse Ox O2 Delivery O2 Flow Rate FiO2 10/24/19 16:00 98.4 65 17 118/76 (90) 98 10/24/19 12:00 98.7 71 16 121/84 (96) 98 10/24/19 09:00 Room Air 10/24/19 08:48 79 139/79 10/24/19 08:00 16 10/24/19 08:00 98.6 79 16 139/79 (99) 98 10/24/19 07:37 98 Room Air 21 10/24/19 04:00 75 20 99 10/24/19 04:00 98.5 75 18 116/78 (91) 99 10/24/19 00:00 76 20 100 10/24/19 00:00 98.3 76 18 107/68 (81) 100 10/23/19 21:00 Room Air 10/23/19 20:14 98 Room Air 21 10/23/19 20:00 88 18 98 10/23/19 20:00 97.8 88 18 104/66 (79) 98 Height (Feet): 5 Height (Inches): 4.00 Weight (Pounds): 124 General Appearance: no acute distress HEENT: normocephalic, atraumatic, anicteric, mucous membranes moist Respiratory/Chest: lungs clear, normal breath sounds, no respiratory distress, no accessory muscle use Cardiovascular: normal rate, regular rhythm, no gallop/murmur, no JVD Abdomen: normal bowel sounds, soft, non tender, no organomegaly, non distended Genitourinary: other - + cardenas - urine clear Extremities: no cyanosis Skin: no rash Neurologic/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 Complete 10/20/19 15:00 Straight Cath Urine Culture - Final Enterococcus Faecalis Complete Laboratory Tests Test 10/23/19 23:40 10/24/19 00:00 10/24/19 05:00 10/24/19 05:25 POC Whole Blood Glucose 155 MG/DL (74-106) H 111 MG/DL (74-106) H Urine Color Yellow Urine Appearance Clear Urine pH 5 (4.5-8.0) Urine Specific [place] 1.020 (1.005-1.035) Urine Protein Negative (NEGATIVE) Urine Glucose (UA) 3+ (NEGATIVE) H Urine Ketones Negative (NEGATIVE) Urine Blood Negative (NEGATIVE) Urine Nitrite Positive (NEGATIVE) H Urine Bilirubin Negative (NEGATIVE) Urine Urobilinogen Normal MG/DL (0.0-1.0) Urine Leukocyte Esterase 1+ (NEGATIVE) H Urine RBC 2-4 /HPF (0 - 2) H Urine WBC 5-10 /HPF (0 - 2) H Urine Squamous Epithelial Cells Few /LPF (NONE/OCC) Urine Bacteria Few /HPF (NONE) White Blood Count 15.3 K/UL (4.8-10.8) #H Red Blood Count 3.61 M/UL (4.20-5.40) L Hemoglobin 12.0 G/DL (12.0-16.0) Hematocrit 35.1 % (37.0-47.0) L Mean Corpuscular Volume 97 FL (80-99) Mean Corpuscular Hemoglobin 33.2 PG (27.0-31.0) H Mean Corpuscular Hemoglobin Concent 34.1 G/DL (32.0-36.0) Red Cell Distribution Width 10.6 % (11.6-14.8) L Platelet Count 197 K/UL (150-450) Mean Platelet Volume 4.9 FL (6.5-10.1) L Neutrophils (%) (Auto) % (45.0-75.0) Lymphocytes (%) (Auto) % (20.0-45.0) Monocytes (%) (Auto) % (1.0-10.0) Eosinophils (%) (Auto) % (0.0-3.0) Basophils (%) (Auto) % (0.0-2.0) Differential Total Cells Counted 100 Neutrophils % (Manual) 87 % (45-75) H Lymphocytes % (Manual) 7 % (20-45) L Monocytes % (Manual) 6 % (1-10) Eosinophils % (Manual) 0 % (0-3) Basophils % (Manual) 0 % (0-2) Band Neutrophils 0 % (0-8) Platelet Estimate Adequate Platelet Morphology Normal Red Blood Cell Morphology Normal Macrocytosis Sodium Level 140 MMOL/L (136-145) Potassium Level 3.5 MMOL/L (3.5-5.1) Chloride Level 105 MMOL/L (98-107) Carbon Dioxide Level 30 MMOL/L (21-32) Anion Gap 6 mmol/L (5-15) Blood Urea Nitrogen 10 mg/dL (7-18) Creatinine 0.7 MG/DL (0.55-1.30) Estimat Glomerular Filtration Rate > 60 mL/min (>60) Glucose Level 102 MG/DL (74-106) Calcium Level 7.8 MG/DL (8.5-10.1) L Phosphorus Level 2.4 MG/DL (2.5-4.9) L Magnesium Level 1.9 MG/DL (1.8-2.4) Total Bilirubin 0.3 MG/DL (0.2-1.0) Aspartate Amino Transf (AST/SGOT) 366 U/L (15-37) H Alanine Aminotransferase (ALT/SGPT) 412 U/L (12-78) H Alkaline Phosphatase 50 U/L (46-116) Total Protein 5.8 G/DL (6.4-8.2) L Albumin 3.1 G/DL (3.4-5.0) L Globulin 2.7 g/dL Albumin/Globulin Ratio 1.1 (1.0-2.7) Test 10/24/19 12:03 10/24/19 18:07 POC Whole Blood Glucose 89 MG/DL (74-106) 90 MG/DL (74-106) Current Medications Medications (Trade) Dose Ordered Sig/Shannan Route PRN Reason Start Time Stop Time Status Last Admin Dose Admin Acetaminophen (Tylenol) 650 mg Q4H PRN ORAL Mild Pain, T over 100.2 10/23/19 14:00 11/22/19 13:59 Chlorhexidine Gluconate (Lena-Hex 2%) 1 applic DAILY@2000 TOPIC 10/20/19 20:00 01/18/20 19:59 10/23/19 20:36 Dextrose 1,000 ml @ 0 mls/hr Q24H PRN IV PN interrupted or unavailable 10/22/19 07:15 11/21/19 07:14 Dextrose (Dextrose 50%) 25 ml Q30M PRN IV Hypoglycemia 10/22/19 07:15 01/20/20 07:14 Dextrose (Dextrose 50%) 50 ml Q30M PRN IV Hypoglycemia 10/22/19 07:15 01/20/20 07:14 Dextrose/ Electrolytes 1,000 ml @ 50 mls/hr Q20H IV 10/24/19 08:30 11/23/19 08:29 Diphenhydramine HCl (Benadryl) 50 mg Q4H PRN IVP Itching/Pruritis 10/24/19 10:00 8/2/20 09:59 Fat Emulsion Intravenous 216 ml/Amino Acids/ Electrolytes/ Dextrose 1,656 ml @ 69 mls/hr Q24H IV 10/22/19 20:00 01/20/20 19:59 10/23/19 20:38 Fluoxetine HCl (PROzac) 40 mg DAILY ORAL 10/21/19 09:00 11/20/19 08:59 10/24/19 08:48 Insulin Aspart (NovoLOG) Q6HR SUBQ 10/23/19 00:00 01/21/20 00:00 10/23/19 23:46 Iron Sucrose 100 mg/Sodium Chloride 60 ml @ 240 mls/hr BEDTIME IV 10/21/19 21:00 10/25/19 21:14 10/23/19 20:36 Ketorolac Tromethamine (Toradol 30mg) 15 mg Q6H PRN IV breakthrough pain 10/23/19 14:00 10/28/19 13:59 Levofloxacin 100 ml @ 100 mls/hr Q24H IVPB 10/24/19 13:00 10/31/19 12:59 10/24/19 13:05 Lorazepam (Ativan) 1 mg Q4H PRN SL Muscle Spasm 10/23/19 14:00 10/30/19 13:59 Metoprolol Succinate (Toprol XL) 50 mg DAILY ORAL 10/21/19 09:00 01/19/20 08:59 10/24/19 08:48 Metronidazole 100 ml @ 100 mls/hr Q12HR IVPB 10/24/19 21:00 10/30/19 23:59 Miscellaneous Medication (COIN COUNTER AND WRAPPER Rate Change) 1 ea DAILY PRN MISC rate change 10/24/19 08:00 10/26/19 07:59 Miscellaneous Medication (COIN COUNTER AND WRAPPER shift volume) 1 ea Q12HR@0700,1900 MISC 10/24/19 19:00 10/26/19 18:59 Morphine Sulfate 30 ml @ 0 mls/hr Q24H PRN IV For Pain 10/24/19 13:56 10/26/19 13:55 10/24/19 14:27 Naloxone HCl (Narcan) 0.1 mg Q1M PRN IVP RR<10/min OR SBP<90 mmHg 7/31/20 08:00 10/26/19 07:58 Ondansetron HCl (Zofran) 4 mg Q4H PRN IVP Nausea & Vomiting 10/23/19 14:00 11/22/19 13:59 10/24/19 13:46 Phytonadione (Vitamin K) 10 mg ONCE A WEEK SUBQ 10/22/19 07:15 01/20/20 07:14 10/22/19 08:19 Zolpidem Tartrate (Ambien) 10 mg HSPRN PRN ORAL Insomnia 10/20/19 20:51 10/27/19 20:50 10/22/19 20:27 Sut Peralta MD Oct 24, 2019 19:16
[2019-10-24 20:00] VITALS: BP 114/71
[2019-10-24] MEDS: TPN IV SCH (20:00)
[2019-10-24] MEDS: FAT EMULSION 20% IV SCH (20:00)
[2019-10-24] MEDS: Dyna-Hex 2% Top Sol 2oz TOPIC SCH (20:01)
[2019-10-24] MEDS: Iron Sucrose 100 MG in NS 55 ML IV SCH (20:02)
[2019-10-24] MEDS: Zolpidem 5mg tab ORAL PRN (20:18)
[2019-10-25] VITALS (7 sets, daily range): BP systolic 97–111; BP diastolic 58–70
[2019-10-25] MEDS: PCA Morphine 1mg/ml 30 ML IV PRN (03:40)
[2019-10-25] MEDS: D5 1/2NS w/KCl 20mEq 1,000 ML IV SCH (03:47)
[2019-10-25] MEDS: NovoLOG Insulin Flexpen SUBQ SCH ×3 (06:00→18:00)
[2019-10-25 06:20] LABS: BASOPHILS % (AUTO) 0.7 % (0.0-2.0); EOSINOPHILS % (AUTO) 2.4 % (0.0-3.0); HEMATOCRIT 35.3 % (37.0-47.0); HEMOGLOBIN 11.7 G/DL (12.0-16.0); LYMPHOCYTES % (AUTO) 20.4 % (20.0-45.0); MEAN CORPUSCULAR VOLUME 97 FL (80-99); MONOCYTES % (AUTO) 6.4 % (1.0-10.0); NEUTROPHILS % (AUTO) 70.1 % (45.0-75.0); PLATELET COUNT 142 K/UL (150-450); RED BLOOD COUNT 3.62 M/UL (4.20-5.40); RED CELL DISTRIBUTION WIDTH 10.6 % (11.6-14.8); WHITE BLOOD COUNT 11.5 K/UL (4.8-10.8)
[2019-10-25 07:04] LABS: ALANINE AMINOTRANSFERASE 240 U/L (12-78); ALBUMIN 2.8 G/DL (3.4-5.0); ALKALINE PHOSPHATASE 56 U/L (46-116); ANION GAP 4 mmol/L (5-15); ASPARTATE AMINO TRANSFERASE 107 U/L (15-37); BILIRUBIN,TOTAL 0.3 MG/DL (0.2-1.0); BLOOD UREA NITROGEN 10 mg/dL (7-18); CARBON DIOXIDE 31 MMOL/L (21-32); CHLORIDE 104 MMOL/L (98-107); CREATININE 0.7 MG/DL (0.55-1.30); PHOSPHORUS 2.6 MG/DL (2.5-4.9); POTASSIUM 3.9 MMOL/L (3.5-5.1); SODIUM 139 MMOL/L (136-145)
[2019-10-25] MEDS: PCA shift volume MISC SCH ×2 (07:22→19:25)
[2019-10-25] MEDS: Metoprolol Succinate XL 50mg tab ORAL SCH (08:05)
[2019-10-25] MEDS ORDERED: Naloxone 0.4mg/ml Inj IVP PRN (08:58)
[2019-10-25] MEDS ORDERED: Fluconazole 100mg tab ORAL SCH (09:00)
[2019-10-25] MEDS ORDERED: Rate Change PCA 1 Each MISC PRN (09:00)
[2019-10-25] MEDS ORDERED: PCA Morphine 1mg/ml 30 ML IV PRN ×2 (09:01→09:15)
--- NOTE | 2019-10-25 09:14 | General Progress Note ---
Progress Note Progress Note AVSS Ambulated. c/o nausea despite Zofran. Comfortable with retort firer. Has thrush and vaginal yeast infection Abdomen distended, soft, incision clean, stoma pink Urine 1900 BCIR ileo 140 enteric WBC down 11,500 Hgb 11.7 stable Platelets 142,000 Mg 1.5 Phos 2.6 albumin 2.8 AST/ALT down Imp: Ileus Plan; continue npo, Terry, TPN, continuous drainage of Ramos pouch Nystatin po, Monistat vag supp, Diflucan po x 1 infuse Mg and KPhos d/c basal infusion of CHIEF LIBRARIAN WORK WITH BLIND and add Compazine prn f/u labs Brady Martinez MD Oct 25, 2019 09:14
[2019-10-25] MEDS ORDERED: DiphenhydrAMINE 50mg/ml Inj IVP PRN (09:15)
[2019-10-25] MEDS ORDERED: Potassium Phosphate 15mm/250ml 250 ML IVPB ONE (10:00)
[2019-10-25] MEDS: Nystatin Susp 500,000 units/5ml ORAL SCH ×4 (10:10→20:22)
[2019-10-25] MEDS: 1/2NS w/KCl 20mEq 1000ml 1,000 ML IV SCH (11:51)
[2019-10-25] MEDS: Zolpidem 5mg tab ORAL PRN (20:21)
[2019-10-25] MEDS: Iron Sucrose 100 MG in NS 55 ML IV SCH (20:21)
[2019-10-25] MEDS: Dyna-Hex 2% Top Sol 2oz TOPIC SCH (20:21)
[2019-10-25] MEDS: Miconazole 200mg Supp VAGIN SCH ×2 (20:22→21:00)
[2019-10-25] MEDS: FAT EMULSION 20% IV SCH (20:23)
[2019-10-25] MEDS: TPN IV SCH (20:23)
[2019-10-26] VITALS: BP 94/58
[2019-10-26 04:00] VITALS: BP 111/70
[2019-10-26] MEDS: 1/2NS w/KCl 20mEq 1000ml 1,000 ML IV SCH (05:06)
[2019-10-26] MEDS: NovoLOG Insulin Flexpen SUBQ SCH ×4 (05:40→18:00)
[2019-10-26 06:41] LABS: BASOPHILS % (AUTO) 0.9 % (0.0-2.0); EOSINOPHILS % (AUTO) 1.3 % (0.0-3.0); HEMATOCRIT 37.7 % (37.0-47.0); HEMOGLOBIN 12.6 G/DL (12.0-16.0); LYMPHOCYTES % (AUTO) 13.6 % (20.0-45.0); MEAN CORPUSCULAR VOLUME 97 FL (80-99); MONOCYTES % (AUTO) 6.1 % (1.0-10.0); NEUTROPHILS % (AUTO) 78.2 % (45.0-75.0); PLATELET COUNT 187 K/UL (150-450); RED BLOOD COUNT 3.88 M/UL (4.20-5.40); RED CELL DISTRIBUTION WIDTH 10.5 % (11.6-14.8); WHITE BLOOD COUNT 9.8 K/UL (4.8-10.8)
[2019-10-26] MEDS: PCA shift volume MISC SCH ×2 (07:00→19:00)
[2019-10-26 07:11] LABS: ALANINE AMINOTRANSFERASE 181 U/L (12-78); ALBUMIN 2.9 G/DL (3.4-5.0); ALKALINE PHOSPHATASE 70 U/L (46-116); ANION GAP 4 mmol/L (5-15); ASPARTATE AMINO TRANSFERASE 51 U/L (15-37); BILIRUBIN,TOTAL 0.2 MG/DL (0.2-1.0); BLOOD UREA NITROGEN 9 mg/dL (7-18); CALCIUM 8.5 MG/DL (8.5-10.1); CARBON DIOXIDE 31 MMOL/L (21-32); CHLORIDE 103 MMOL/L (98-107); CREATININE 0.7 MG/DL (0.55-1.30); POTASSIUM 3.8 MMOL/L (3.5-5.1); SODIUM 138 MMOL/L (136-145)
[2019-10-26 08:00] VITALS: BP 128/87
[2019-10-26] MEDS ORDERED: NS 500ML ONE (08:31)
[2019-10-26] MEDS ORDERED: Tubing IV Secondary IV ONE (08:31)
[2019-10-26] MEDS ORDERED: Naloxone 0.4mg/ml Inj IVP PRN (09:33)
[2019-10-26] MEDS ORDERED: Ketorolac 30mg Inj IV PRN (09:45)
[2019-10-26] MEDS ORDERED: PCA Morphine 1mg/ml 30 ML IV PRN (09:45)
[2019-10-26] MEDS ORDERED: Rate Change PCA 1 Each MISC PRN (09:45)
[2019-10-26] MEDS: Nystatin Susp 500,000 units/5ml ORAL SCH ×4 (09:45→20:12)
[2019-10-26] MEDS ORDERED: DiphenhydrAMINE 50mg/ml Inj IVP PRN (09:45)
[2019-10-26] MEDS: Metoprolol Succinate XL 50mg tab ORAL SCH (09:45)
--- NOTE | 2019-10-26 09:48 | General Progress Note ---
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
[2019-10-26 12:00] VITALS: BP 119/84
[2019-10-26 16:00] VITALS: BP 127/90
--- NOTE | 2019-10-26 19:23 | Infectious Diseases Prog Note ---
Assessment/Plan Assessment/Plan ASSESSMENT AND PLAN: 1. hx asymptomatic covid-19 infection - resolved, re-testing negative malfunctioning Ramos ileostomy - s/p revision - urine culture with only 20-30,000 enterococcus - considered non-significant , f/u urine culture negative elevated LFT's, TPN - lft's improving - reva-operative antibiotics - levofloxacin plus flagyl - day # 3 post-op - leukocytosis resolved - management per Dr. Martinez - monitor labs and clinically post-op - d/w pharmacy 2. ? uti - urine culture with - 20-30, 000 colonies - likely contaminant, discontinue bactrim 3. The patient has malfunctioning Ramos ileostomy - sarika need revision 4. 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 5. History of ulcerative colitis. 6. Hypertension. 7. History of neurogenic bladder. 8. History of multiple abdominal surgeries including colectomy, cholecystectomy, and proctectomy. 9. History of Ramos continent ileostomy in 2018. 10. Continue treatment per Dr. Martinez and consultants. 11. The patient allergic to penicillin and erythromycin. Penicillin allergy is hives. 12. Social history is negative. 13. Family history is noncontributory. 14. MAR was noted. 15. Case discussed with RN. 16. Case discussed with the patient. Subjective Constitutional: Denies: fever HEENT: Denies: congestion Respiratory: Denies: shortness of breath Cardiovascular: Denies: chest pain Gastrointestinal/Abdominal: Denies: nausea, vomiting, diarrhea Genitourinary: Reports: other - + cardenas Neurologic: Denies: headache Psychiatric: Denies: depression Skin: Denies: rash Hematologic: Denies: bleeding Musculoskeletal: Denies: pain Allergies: Coded Allergies: ERYTHROMYCIN BASE (Verified Allergy, Intermediate, rash, 01/22/18) PENICILLINS (Verified Allergy, Intermediate, rash, hi9ves, 01/22/18) Objective Last 24 Hour Vital Signs Date Time Temp Pulse Resp B/P (MAP) Pulse Ox O2 Delivery O2 Flow Rate FiO2 10/26/19 16:00 76 18 100 10/26/19 16:00 99.1 76 18 127/90 (102) 100 10/26/19 12:00 99.4 77 21 119/84 (96) 100 10/26/19 12:00 77 21 100 10/26/19 09:45 85 128/87 10/26/19 09:00 Room Air 10/26/19 08:00 98.1 85 20 128/87 (101) 99 10/26/19 08:00 85 20 99 10/26/19 04:00 98.3 84 16 111/70 (84) 98 10/26/19 00:00 88 18 98 10/26/19 00:00 98.9 88 18 94/58 (70) 98 10/25/19 21:00 Room Air 10/25/19 20:00 99.0 80 16 108/70 (83) 100 10/25/19 20:00 80 16 100 Height (Feet): 5 Height (Inches): 4.00 Weight (Pounds): 124 General Appearance: no acute distress HEENT: normocephalic, atraumatic, anicteric, mucous membranes moist Respiratory/Chest: lungs clear, normal breath sounds, no respiratory distress, no accessory muscle use Cardiovascular: normal rate, regular rhythm Abdomen: normal bowel sounds, soft, non tender, no organomegaly, non distended Genitourinary: other - + cardenas Extremities: no cyanosis Skin: no rash Neurologic/Psychiatric: pharmacy messenger 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 Complete 10/24/19 00:00 Urine,Clean Catch Urine Culture - Preliminary NO GROWTH AFTER 24 HOURS Resulted Microbiology Date/Time Source Procedure Growth Status 10/24/19 00:00 Urine,Clean Catch Urine Culture - Preliminary NO GROWTH AFTER 24 HOURS Resulted Laboratory Tests Test 10/25/19 23:56 10/26/19 04:50 10/26/19 05:06 10/26/19 12:48 POC Whole Blood Glucose 128 MG/DL (74-106) H Pending 102 MG/DL (74-106) White Blood Count 9.8 K/UL (4.8-10.8) Red Blood Count 3.88 M/UL (4.20-5.40) L Hemoglobin 12.6 G/DL (12.0-16.0) Hematocrit 37.7 % (37.0-47.0) Mean Corpuscular Volume 97 FL (80-99) Mean Corpuscular Hemoglobin 32.4 PG (27.0-31.0) H Mean Corpuscular Hemoglobin Concent 33.3 G/DL (32.0-36.0) Red Cell Distribution Width 10.5 % (11.6-14.8) L Platelet Count 187 K/UL (150-450) Mean Platelet Volume 4.7 FL (6.5-10.1) L Neutrophils (%) (Auto) 78.2 % (45.0-75.0) H Lymphocytes (%) (Auto) 13.6 % (20.0-45.0) L Monocytes (%) (Auto) 6.1 % (1.0-10.0) Eosinophils (%) (Auto) 1.3 % (0.0-3.0) Basophils (%) (Auto) 0.9 % (0.0-2.0) Sodium Level 138 MMOL/L (136-145) Potassium Level 3.8 MMOL/L (3.5-5.1) Chloride Level 103 MMOL/L (98-107) Carbon Dioxide Level 31 MMOL/L (21-32) Anion Gap 4 mmol/L (5-15) L Blood Urea Nitrogen 9 mg/dL (7-18) Creatinine 0.7 MG/DL (0.55-1.30) Estimat Glomerular Filtration Rate > 60 mL/min (>60) Glucose Level 110 MG/DL (74-106) H Calcium Level 8.5 MG/DL (8.5-10.1) Phosphorus Level 3.0 MG/DL (2.5-4.9) Magnesium Level 1.9 MG/DL (1.8-2.4) Total Bilirubin 0.2 MG/DL (0.2-1.0) Aspartate Amino Transf (AST/SGOT) 51 U/L (15-37) H Alanine Aminotransferase (ALT/SGPT) 181 U/L (12-78) H Alkaline Phosphatase 70 U/L (46-116) Total Protein 5.9 G/DL (6.4-8.2) L Albumin 2.9 G/DL (3.4-5.0) L Globulin 3.0 g/dL Albumin/Globulin Ratio 1.0 (1.0-2.7) Test 10/26/19 18:49 POC Whole Blood Glucose 110 MG/DL (74-106) H Current Medications Medications (Trade) Dose Ordered Sig/Shannan Route PRN Reason Start Time Stop Time Status Last Admin Dose Admin Acetaminophen (Tylenol) 650 mg Q4H PRN ORAL Mild Pain, T over 100.2 10/23/19 14:00 11/22/19 13:59 Chlorhexidine Gluconate (Lena-Hex 2%) 1 applic DAILY@2000 TOPIC 10/20/19 20:00 01/18/20 19:59 10/25/19 20:21 Dextrose 1,000 ml @ 0 mls/hr Q24H PRN IV PN interrupted or unavailable 10/22/19 07:15 11/21/19 07:14 Dextrose (Dextrose 50%) 25 ml Q30M PRN IV Hypoglycemia 10/22/19 07:15 01/20/20 07:14 Dextrose (Dextrose 50%) 50 ml Q30M PRN IV Hypoglycemia 10/22/19 07:15 01/20/20 07:14 Diphenhydramine HCl (Benadryl) 50 mg Q4H PRN IVP Itching/Pruritis 10/26/19 09:45 10/28/19 09:44 Fat Emulsion Intravenous 216 ml/Amino Acids/ Electrolytes/ Dextrose 1,656 ml @ 69 mls/hr Q24H IV 10/22/19 20:00 01/20/20 19:59 10/25/19 20:23 Fluoxetine HCl (PROzac) 40 mg DAILY ORAL 10/21/19 09:00 11/20/19 08:59 10/26/19 09:45 Insulin Aspart (NovoLOG) Q6HR SUBQ 10/23/19 00:00 01/21/20 00:00 10/23/19 23:46 Ketorolac Tromethamine (Toradol 30mg) 15 mg Q6H PRN IV breakthrough pain 10/26/19 09:45 10/31/19 09:44 Levofloxacin 100 ml @ 100 mls/hr Q24H IVPB 10/24/19 13:00 10/31/19 12:59 10/26/19 15:37 Lorazepam (Ativan) 1 mg Q4H PRN SL Muscle Spasm 10/23/19 14:00 10/30/19 13:59 Metoprolol Succinate (Toprol XL) 50 mg DAILY ORAL 10/21/19 09:00 01/19/20 08:59 10/26/19 09:45 Metronidazole 100 ml @ 100 mls/hr Q12HR IVPB 10/24/19 21:00 10/30/19 23:59 10/26/19 09:44 Miconazole Nitrate (Monistat) 200 mg BEDTIME VAGIN 10/25/19 21:00 01/23/20 20:59 Miscellaneous Medication (BIOLOGICAL LAB TECHNICIAN Rate Change) 1 ea DAILY PRN MISC rate change 10/26/19 09:45 10/28/19 09:44 Miscellaneous Medication (BIOLOGICAL LAB TECHNICIAN shift volume) 1 ea Q12HR@0700,1900 MISC 10/26/19 19:00 10/28/19 18:59 Morphine Sulfate 30 ml @ 0 mls/hr Q24H PRN IV For Pain 10/26/19 09:45 10/28/19 09:44 10/26/19 14:26 Naloxone HCl (Narcan) 0.1 mg Q1M PRN IVP RR<10/min OR SBP<90 mmHg 10/26/19 09:33 10/28/19 09:29 Nystatin (Nystatin) 5 ml QID ORAL 10/25/19 09:15 11/01/19 09:14 10/26/19 12:44 Ondansetron HCl (Zofran) 4 mg Q4H PRN IVP Nausea & Vomiting 10/23/19 14:00 11/22/19 13:59 10/25/19 08:04 Phytonadione (Vitamin K) 10 mg ONCE A WEEK SUBQ 10/22/19 07:15 01/20/20 07:14 10/22/19 08:19 Prochlorperazine (Compazine) 10 mg Q6H PRN IVP Nausea & Vomiting 10/25/19 09:15 11/24/19 09:14 10/26/19 17:33 Sodium 1,000 ml @ 50 mls/hr Q20H IV 10/25/19 10:00 11/24/19 09:59 10/26/19 05:06 Zolpidem Tartrate (Ambien) 10 mg HSPRN PRN ORAL Insomnia 10/25/19 09:00 11/01/19 08:59 8/1/20 20:21 Stu Peralta MD Oct 26, 2019 19:23
[2019-10-26 20:00] VITALS: BP 107/72
[2019-10-26] MEDS: Zolpidem 5mg tab ORAL PRN (20:12)
[2019-10-26] MEDS: Dyna-Hex 2% Top Sol 2oz TOPIC SCH (20:12)
[2019-10-26] MEDS: TPN IV SCH (20:18)
[2019-10-26] MEDS: FAT EMULSION 20% IV SCH (20:18)
[2019-10-26] MEDS: Miconazole 200mg Supp VAGIN SCH (20:19)
[2019-10-27] VITALS (8 sets, daily range): BP systolic 90–134; BP diastolic 59–89
[2019-10-27] MEDS: 1/2NS w/KCl 20mEq 1000ml 1,000 ML IV SCH ×2 (00:17→20:07)
[2019-10-27] MEDS: NovoLOG Insulin Flexpen SUBQ SCH ×4 (05:23→17:36)
[2019-10-27 06:38] LABS: EOSINOPHILS % (AUTO) 2.7 % (0.0-3.0); HEMATOCRIT 38.1 % (37.0-47.0); HEMOGLOBIN 12.7 G/DL (12.0-16.0); LYMPHOCYTES % (AUTO) 20.4 % (20.0-45.0); MEAN CORPUSCULAR VOLUME 97 FL (80-99); PLATELET COUNT 195 K/UL (150-450); RED BLOOD COUNT 3.92 M/UL (4.20-5.40); RED CELL DISTRIBUTION WIDTH 10.7 % (11.6-14.8); WHITE BLOOD COUNT 6.9 K/UL (4.8-10.8)
[2019-10-27] MEDS: PCA shift volume MISC SCH ×2 (07:00→19:00)
[2019-10-27 07:09] LABS: ALANINE AMINOTRANSFERASE 154 U/L (12-78); ALBUMIN 3.1 G/DL (3.4-5.0); ALKALINE PHOSPHATASE 186 U/L (46-116); ANION GAP 6 mmol/L (5-15); ASPARTATE AMINO TRANSFERASE 51 U/L (15-37); BILIRUBIN,TOTAL 0.2 MG/DL (0.2-1.0); BLOOD UREA NITROGEN 13 mg/dL (7-18); CALCIUM 8.7 MG/DL (8.5-10.1); CARBON DIOXIDE 30 MMOL/L (21-32); CHLORIDE 101 MMOL/L (98-107); CREATININE 0.7 MG/DL (0.55-1.30); PHOSPHORUS 3.9 MG/DL (2.5-4.9); POTASSIUM 3.9 MMOL/L (3.5-5.1); SODIUM 137 MMOL/L (136-145)
[2019-10-27] MEDS: Nystatin Susp 500,000 units/5ml ORAL SCH ×4 (08:43→20:07)
[2019-10-27] MEDS: Metoprolol Succinate XL 50mg tab ORAL SCH (09:00)
[2019-10-27] MEDS ORDERED: Naloxone 0.4mg/ml Inj IVP PRN (09:19)
[2019-10-27] MEDS ORDERED: Rate Change PCA 1 Each MISC PRN (09:30)
--- NOTE | 2019-10-27 09:30 | General Progress Note ---
Progress Note Progress Note AVSS Feeling better with slight nausea last night, none since. Persistent thrush Abdomen less distended, non-tender, healing well Urine 1924 BCIR ileo 865 Labs all stable/ok except Mg 1.4 Imp: Ileus resolving Plan; clear liquid diet d/c Flagyl continue Terry and indwelling Ramos pouch catheter to drainage Mg infusion Brady Martinez MD Oct 27, 2019 09:30
[2019-10-27] MEDS ORDERED: DiphenhydrAMINE 50mg/ml Inj IVP PRN (09:45)
[2019-10-27] MEDS ORDERED: PCA Morphine 1mg/ml 30 ML IV PRN (09:45)
[2019-10-27] MEDS ORDERED: Fluconazole 150mg tab ORAL ONE (10:30)
[2019-10-27] MEDS: Dyna-Hex 2% Top Sol 2oz TOPIC SCH (20:07)
[2019-10-27] MEDS: FAT EMULSION 20% IV SCH (20:08)
[2019-10-27] MEDS: TPN IV SCH (20:08)
[2019-10-27] MEDS: Miconazole 200mg Supp VAGIN SCH (20:11)
[2019-10-27] MEDS: Zolpidem 5mg tab ORAL PRN (20:44)
[2019-10-28] VITALS (8 sets, daily range): BP systolic 99–144; BP diastolic 65–86
[2019-10-28 05:44] LABS: EOSINOPHILS % (AUTO) 2.4 % (0.0-3.0); HEMATOCRIT 36.8 % (37.0-47.0); HEMOGLOBIN 12.2 G/DL (12.0-16.0); LYMPHOCYTES % (AUTO) 20.2 % (20.0-45.0); MEAN CORPUSCULAR VOLUME 97 FL (80-99); MONOCYTES % (AUTO) 5.3 % (1.0-10.0); NEUTROPHILS % (AUTO) 70.1 % (45.0-75.0); PLATELET COUNT 216 K/UL (150-450); RED BLOOD COUNT 3.79 M/UL (4.20-5.40); RED CELL DISTRIBUTION WIDTH 10.6 % (11.6-14.8); WHITE BLOOD COUNT 7.7 K/UL (4.8-10.8)
[2019-10-28 05:54] LABS: ALANINE AMINOTRANSFERASE 111 U/L (12-78); ALBUMIN 3.1 G/DL (3.4-5.0); ALKALINE PHOSPHATASE 189 U/L (46-116); ANION GAP 5 mmol/L (5-15); ASPARTATE AMINO TRANSFERASE 29 U/L (15-37); BILIRUBIN,TOTAL 0.2 MG/DL (0.2-1.0); BLOOD UREA NITROGEN 12 mg/dL (7-18); CALCIUM 8.5 MG/DL (8.5-10.1); CARBON DIOXIDE 30 MMOL/L (21-32); CHLORIDE 101 MMOL/L (98-107); CREATININE 0.7 MG/DL (0.55-1.30); PHOSPHORUS 3.6 MG/DL (2.5-4.9); SODIUM 136 MMOL/L (136-145)
[2019-10-28] MEDS: NovoLOG Insulin Flexpen SUBQ SCH ×4 (05:54→18:00)
[2019-10-28] MEDS: PCA shift volume MISC SCH (07:02)
--- NOTE | 2019-10-28 08:44 | General Progress Note ---
Progress Note Progress Note AVSS doing well, tolerating clear liquid diet Abdomen soft, non-distended, healing nicely Urine 2975 BCIR ileo 525 labs all stable/satisfactory except Mg 1.7 and albumin 3.1 Imp: improving Plan: Full liquid diet and d/cf IV fluids but continue TPN Mg infusion D/C urinary Terry and antibiotics Maintain continuous drainage of Ramos Pouch Brady Martinez MD Oct 28, 2019 08:44
[2019-10-28] MEDS: Nystatin Susp 500,000 units/5ml ORAL SCH ×4 (09:00→20:32)
[2019-10-28] MEDS: Metoprolol Succinate XL 50mg tab ORAL SCH (09:01)
[2019-10-28] MEDS: HYDROcodone/Acetamin 5/325 tab ORAL PRN ×4 (10:02→22:29)
--- NOTE | 2019-10-28 19:45 | Infectious Diseases Prog Note ---
Assessment/Plan Assessment/Plan ASSESSMENT AND PLAN: 1. hx asymptomatic covid-19 infection - resolved, re-testing negative malfunctioning Ramos ileostomy - s/p revision - urine culture with only 20-30,000 enterococcus - considered non-significant , f/u urine culture negative elevated LFT's, TPN - lft's improving thrush - reva-operative antibiotics - levofloxacin plus flagyl - finish course - nystatin for thrush - leukocytosis resolved - management per Dr. Martinez - monitor labs and clinically post-op - d/w pharmacy 2. ? uti - urine culture with - 20-30, 000 colonies - likely contaminant, discontinue bactrim 3. The patient has malfunctioning Ramos ileostomy - sarika need revision 4. 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 5. History of ulcerative colitis. 6. Hypertension. 7. History of neurogenic bladder. 8. History of multiple abdominal surgeries including colectomy, cholecystectomy, and proctectomy. 9. History of Ramos continent ileostomy in 2018. 10. Continue treatment per Dr. Martinez and consultants. 11. The patient allergic to penicillin and erythromycin. Penicillin allergy is hives. 12. Social history is negative. 13. Family history is noncontributory. 14. MAR was noted. 15. Case discussed with RN. 16. Case discussed with the patient. Subjective Constitutional: Denies: fever HEENT: Denies: congestion Respiratory: Denies: shortness of breath Cardiovascular: Denies: chest pain Gastrointestinal/Abdominal: Denies: nausea, vomiting, diarrhea Neurologic: Denies: headache Psychiatric: Denies: depression Skin: Denies: rash Hematologic: Denies: bleeding Musculoskeletal: Denies: pain Allergies: Coded Allergies: ERYTHROMYCIN BASE (Verified Allergy, Intermediate, rash, 01/22/18) PENICILLINS (Verified Allergy, Intermediate, rash, hi9ves, 01/22/18) Objective Last 24 Hour Vital Signs Date Time Temp Pulse Resp B/P (MAP) Pulse Ox O2 Delivery O2 Flow Rate FiO2 10/28/19 18:57 98.5 10/28/19 16:00 98.5 86 18 106/74 (85) 94 10/28/19 12:00 98.0 80 18 144/86 (105) 98 8/4/20 09:01 82 130/81 10/28/19 09:00 82 20 99 10/28/19 09:00 Room Air Room Air 10/28/19 08:00 98.0 82 20 130/81 (97) 99 10/28/19 07:47 88 18 98 10/28/19 05:25 97.6 88 18 99/65 (76) 98 10/28/19 04:00 18 97 10/28/19 00:00 98.1 102 18 108/72 (84) 97 10/28/19 00:00 18 97 10/27/19 21:00 Room Air 10/27/19 20:30 97.3 94 18 131/89 (103) 97 10/27/19 20:00 18 97 Height (Feet): 5 Height (Inches): 4.00 Weight (Pounds): 124 General Appearance: no acute distress HEENT: normocephalic, atraumatic, anicteric, mucous membranes moist, supple, thrush - mild Respiratory/Chest: lungs clear, normal breath sounds, no respiratory distress Cardiovascular: normal rate, regular rhythm, no gallop/murmur, no JVD Abdomen: normal bowel sounds, soft, non tender, no organomegaly, non distended Genitourinary: other - no cardenas Extremities: no cyanosis Skin: no rash Neurologic/Psychiatric: airport manager 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 Complete 10/24/19 00:00 Urine,Clean Catch Urine Culture - Final NO GROWTH AFTER 48 HOURS Complete Microbiology Date/Time Source Procedure Growth Status 10/20/19 11:24 Nasal Nares MRSA Culture - Final NO METHICILLIN RESISTANT STAPH AUREUS... Complete 10/24/19 00:00 Urine,Clean Catch Urine Culture - Final NO GROWTH AFTER 48 HOURS Complete Laboratory Tests Test 10/28/19 00:01 10/28/19 05:15 10/28/19 05:24 10/28/19 11:59 POC Whole Blood Glucose 116 MG/DL (74-106) H 96 MG/DL (74-106) 108 MG/DL (74-106) H White Blood Count 7.7 K/UL (4.8-10.8) Red Blood Count 3.79 M/UL (4.20-5.40) L Hemoglobin 12.2 G/DL (12.0-16.0) Hematocrit 36.8 % (37.0-47.0) L Mean Corpuscular Volume 97 FL (80-99) Mean Corpuscular Hemoglobin 32.2 PG (27.0-31.0) H Mean Corpuscular Hemoglobin Concent 33.1 G/DL (32.0-36.0) Red Cell Distribution Width 10.6 % (11.6-14.8) L Platelet Count 216 K/UL (150-450) Mean Platelet Volume 5.8 FL (6.5-10.1) L Neutrophils (%) (Auto) 70.1 % (45.0-75.0) Lymphocytes (%) (Auto) 20.2 % (20.0-45.0) Monocytes (%) (Auto) 5.3 % (1.0-10.0) Eosinophils (%) (Auto) 2.4 % (0.0-3.0) Basophils (%) (Auto) 2.0 % (0.0-2.0) Sodium Level 136 MMOL/L (136-145) Potassium Level 4.0 MMOL/L (3.5-5.1) Chloride Level 101 MMOL/L (98-107) Carbon Dioxide Level 30 MMOL/L (21-32) Anion Gap 5 mmol/L (5-15) Blood Urea Nitrogen 12 mg/dL (7-18) Creatinine 0.7 MG/DL (0.55-1.30) Estimat Glomerular Filtration Rate > 60 mL/min (>60) Glucose Level 98 MG/DL (74-106) Calcium Level 8.5 MG/DL (8.5-10.1) Phosphorus Level 3.6 MG/DL (2.5-4.9) Magnesium Level 1.7 MG/DL (1.8-2.4) L Total Bilirubin 0.2 MG/DL (0.2-1.0) Aspartate Amino Transf (AST/SGOT) 29 U/L (15-37) Alanine Aminotransferase (ALT/SGPT) 111 U/L (12-78) H Alkaline Phosphatase 189 U/L (46-116) H Total Protein 6.2 G/DL (6.4-8.2) L Albumin 3.1 G/DL (3.4-5.0) L Globulin 3.1 g/dL Albumin/Globulin Ratio 1.0 (1.0-2.7) Test 10/28/19 17:47 POC Whole Blood Glucose 97 MG/DL (74-106) Current Medications Medications (Trade) Dose Ordered Sig/Shannan Route PRN Reason Start Time Stop Time Status Last Admin Dose Admin Acetaminophen (Tylenol) 650 mg Q4H PRN ORAL Mild Pain, T over 100.2 10/23/19 14:00 11/22/19 13:59 Acetaminophen/ Hydrocodone Bitart ([place] 5/325) 1 tab Q4H PRN ORAL For Pain 10/28/19 08:45 11/04/19 08:44 10/28/19 18:27 Chlorhexidine Gluconate (Lena-Hex 2%) 1 applic DAILY@2000 TOPIC 10/20/19 20:00 01/18/20 19:59 10/27/19 20:07 Dextrose 1,000 ml @ 0 mls/hr Q24H PRN IV PN interrupted or unavailable 10/22/19 07:15 11/21/19 07:14 Dextrose (Dextrose 50%) 25 ml Q30M PRN IV Hypoglycemia 10/22/19 07:15 01/20/20 07:14 Dextrose (Dextrose 50%) 50 ml Q30M PRN IV Hypoglycemia 10/22/19 07:15 01/20/20 07:14 Diphenhydramine HCl (Benadryl) 50 mg Q4H PRN IVP Itching/Pruritis 10/27/19 09:45 10/29/19 09:44 Fat Emulsion Intravenous 216 ml/Amino Acids/ Electrolytes/ Dextrose 1,656 ml @ 69 mls/hr Q24H IV 10/22/19 20:00 01/20/20 19:59 10/27/19 20:08 Fluoxetine HCl (PROzac) 40 mg DAILY ORAL 10/21/19 09:00 11/20/19 08:59 10/28/19 09:01 Insulin Aspart (NovoLOG) Q6HR SUBQ 10/23/19 00:00 01/21/20 00:00 10/23/19 23:46 Ketorolac Tromethamine (Toradol 30mg) 15 mg Q6H PRN IV breakthrough pain 10/26/19 09:45 10/31/19 09:44 Lorazepam (Ativan) 1 mg Q4H PRN SL Muscle Spasm 10/23/19 14:00 10/30/19 13:59 Metoprolol Succinate (Toprol XL) 50 mg DAILY ORAL 10/21/19 09:00 01/19/20 08:59 10/28/19 09:01 Miconazole Nitrate (Monistat) 200 mg BEDTIME VAGIN 10/25/19 21:00 01/23/20 20:59 Nystatin (Nystatin) 5 ml QID ORAL 10/27/19 13:00 11/01/19 09:14 10/28/19 17:48 Ondansetron HCl (Zofran) 4 mg Q4H PRN IVP Nausea & Vomiting 10/23/19 14:00 11/22/19 13:59 10/25/19 08:04 Phytonadione (Vitamin K) 10 mg ONCE A WEEK SUBQ 10/22/19 07:15 01/20/20 07:14 10/22/19 08:19 Prochlorperazine (Compazine) 10 mg Q6H PRN IVP Nausea & Vomiting 10/25/19 09:15 11/24/19 09:14 10/26/19 17:33 Zolpidem Tartrate (Ambien) 10 mg HSPRN PRN ORAL Insomnia 10/25/19 09:00 11/01/19 08:59 10/27/19 20:44 Stu Peralta MD Oct 28, 2019 19:45
[2019-10-28] MEDS: Dyna-Hex 2% Top Sol 2oz TOPIC SCH (20:32)
[2019-10-28] MEDS: Zolpidem 5mg tab ORAL PRN (20:32)
[2019-10-28] MEDS: FAT EMULSION 20% IV SCH (20:34)
[2019-10-28] MEDS: TPN IV SCH (20:34)
[2019-10-28] MEDS: Miconazole 200mg Supp VAGIN SCH (20:35)
[2019-10-29] VITALS (7 sets, daily range): BP systolic 92–134; BP diastolic 57–91
[2019-10-29] MEDS: HYDROcodone/Acetamin 5/325 tab ORAL PRN ×6 (02:57→23:15)
[2019-10-29] MEDS: NovoLOG Insulin Flexpen SUBQ SCH ×5 (06:00→23:16)
[2019-10-29 06:41] LABS: EOSINOPHILS % (AUTO) 2.9 % (0.0-3.0); HEMATOCRIT 38.6 % (37.0-47.0); HEMOGLOBIN 12.7 G/DL (12.0-16.0); LYMPHOCYTES % (AUTO) 19.8 % (20.0-45.0); MEAN CORPUSCULAR VOLUME 98 FL (80-99); MONOCYTES % (AUTO) 6.9 % (1.0-10.0); NEUTROPHILS % (AUTO) 69.3 % (45.0-75.0); PLATELET COUNT 195 K/UL (150-450); RED BLOOD COUNT 3.95 M/UL (4.20-5.40); RED CELL DISTRIBUTION WIDTH 10.8 % (11.6-14.8); WHITE BLOOD COUNT 6.7 K/UL (4.8-10.8)
[2019-10-29] MEDS: Phytonadione 10 mg/mL 1ml amp SUBQ SCH (06:58)
[2019-10-29 07:04] LABS: ALANINE AMINOTRANSFERASE 89 U/L (12-78); ALBUMIN 3.1 G/DL (3.4-5.0); ALBUMIN/GLOBULIN RATIO 0.9 (1.0-2.7); ALKALINE PHOSPHATASE 142 U/L (46-116); ANION GAP 4 mmol/L (5-15); ASPARTATE AMINO TRANSFERASE 23 U/L (15-37); BILIRUBIN,TOTAL 0.3 MG/DL (0.2-1.0); BLOOD UREA NITROGEN 14 mg/dL (7-18); CALCIUM 8.6 MG/DL (8.5-10.1); CARBON DIOXIDE 31 MMOL/L (21-32); CHLORIDE 103 MMOL/L (98-107); CREATININE 0.8 MG/DL (0.55-1.30); PHOSPHORUS 3.4 MG/DL (2.5-4.9); POTASSIUM 4.1 MMOL/L (3.5-5.1); SODIUM 138 MMOL/L (136-145)
[2019-10-29] MEDS: Nystatin Susp 500,000 units/5ml ORAL SCH ×4 (08:33→20:11)
[2019-10-29] MEDS: Metoprolol Succinate XL 50mg tab ORAL SCH (08:33)
[2019-10-29] MEDS ORDERED: Ascorbic Acid 500mg tab ORAL PRN (08:45)
--- NOTE | 2019-10-29 08:47 | General Progress Note ---
Progress Note Progress Note AVSS Tolerated full liquid 60% Abdomen soft, healing nicely Urine 2400 (voiding + self-cath prn) BCIR ileo 1170l Labs all stable except Mg 1.6 Albumin 3.1 Imp: Improving Plan; BCIR low residue diet Continue TPN another 24 hours Maintain continuous drainage of Ramos Pouch Mg infusion Brady Martinez MD Oct 29, 2019 08:47
[2019-10-29] MEDS ORDERED: LORazepam 1mg tab SL PRN (10:00)
[2019-10-29] MEDS ORDERED: Tubing IV Secondary IV ONE (15:44)
[2019-10-29] MEDS ORDERED: NS Irrig 1000ml ONE (15:44)
[2019-10-29] MEDS ORDERED: NS 500ML ONE (15:44)
[2019-10-29] MEDS: Zolpidem 5mg tab ORAL PRN (20:12)
[2019-10-29] MEDS: Dyna-Hex 2% Top Sol 2oz TOPIC SCH (20:12)
[2019-10-29] MEDS: TPN IV SCH (20:14)
[2019-10-29] MEDS: Miconazole 200mg Supp VAGIN SCH (20:14)
[2019-10-29] MEDS: FAT EMULSION 20% IV SCH (20:14)
[2019-10-30] VITALS (7 sets, daily range): BP systolic 95–111; BP diastolic 64–76
[2019-10-30] MEDS: HYDROcodone/Acetamin 5/325 tab ORAL PRN ×4 (03:15→20:41)
[2019-10-30] MEDS: NovoLOG Insulin Flexpen SUBQ SCH ×4 (05:41→20:11)
[2019-10-30 06:19] LABS: BASOPHILS % (AUTO) 1.1 % (0.0-2.0); EOSINOPHILS % (AUTO) 3.3 % (0.0-3.0); HEMATOCRIT 40.5 % (37.0-47.0); HEMOGLOBIN 13.5 G/DL (12.0-16.0); LYMPHOCYTES % (AUTO) 23.3 % (20.0-45.0); MEAN CORPUSCULAR VOLUME 98 FL (80-99); MONOCYTES % (AUTO) 6.8 % (1.0-10.0); NEUTROPHILS % (AUTO) 65.6 % (45.0-75.0); PLATELET COUNT 238 K/UL (150-450); RED BLOOD COUNT 4.12 M/UL (4.20-5.40); WHITE BLOOD COUNT 6.5 K/UL (4.8-10.8)
[2019-10-30 06:43] LABS: ALANINE AMINOTRANSFERASE 74 U/L (12-78); ALBUMIN 3.5 G/DL (3.4-5.0); ALKALINE PHOSPHATASE 133 U/L (46-116); ANION GAP 5 mmol/L (5-15); ASPARTATE AMINO TRANSFERASE 21 U/L (15-37); BILIRUBIN,TOTAL 0.1 MG/DL (0.2-1.0); BLOOD UREA NITROGEN 15 mg/dL (7-18); CALCIUM 9.1 MG/DL (8.5-10.1); CARBON DIOXIDE 29 MMOL/L (21-32); CHLORIDE 102 MMOL/L (98-107); CREATININE 0.8 MG/DL (0.55-1.30); PHOSPHORUS 3.7 MG/DL (2.5-4.9); POTASSIUM 4.5 MMOL/L (3.5-5.1); SODIUM 136 MMOL/L (136-145)
--- NOTE | 2019-10-30 08:28 | General Progress Note ---
Progress Note Progress Note AVSS Tolerating BCIR diet - has some fullness earlier relieved by additional irrigation of BCIR catheter Abdomen soft, healing nicely Urine 2900 BCIR ileo 910 labs all stable albumin up 3.5 Imp: improving Plan; taper and d/c TPN maintain continuous drainage of Ramos Pouch f/u labs Brady Martinez MD Oct 30, 2019 08:28
[2019-10-30] MEDS: Metoprolol Succinate XL 50mg tab ORAL SCH (09:00)
[2019-10-30] MEDS: Nystatin Susp 500,000 units/5ml ORAL SCH ×4 (10:30→20:05)
--- NOTE | 2019-10-30 19:43 | Infectious Diseases Prog Note ---
Assessment/Plan Assessment/Plan ASSESSMENT AND PLAN: 1. hx asymptomatic covid-19 infection - resolved, re-testing negative malfunctioning Ramos ileostomy - s/p revision - urine culture with only 20-30,000 enterococcus - considered non-significant , f/u urine culture negative elevated LFT's, TPN - lft's improving thrush - s/p levofloxacin plus flagyl - nystatin for thrush - thrush improved - leukocytosis resolved - management per Dr. Martinez - monitor labs and clinically post-op - 2. ? uti - urine culture with - 20-30, 000 colonies - likely contaminant, discontinue bactrim 3. The patient has malfunctioning Ramos ileostomy - sarika need revision 4. 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 5. History of ulcerative colitis. 6. Hypertension. 7. History of neurogenic bladder. 8. History of multiple abdominal surgeries including colectomy, cholecystectomy, and proctectomy. 9. History of Ramos continent ileostomy in 2018. 10. Continue treatment per Dr. Martinez and consultants. 11. The patient allergic to penicillin and erythromycin. Penicillin allergy is hives. 12. Social history is negative. 13. Family history is noncontributory. 14. MAR was noted. 15. Case discussed with RN. 16. Case discussed with the patient. Subjective Constitutional: Reports: fatigue; Denies: fever HEENT: Denies: congestion Respiratory: Denies: shortness of breath Cardiovascular: Denies: chest pain Gastrointestinal/Abdominal: Denies: nausea, vomiting, diarrhea Genitourinary: Reports: other - no cardenas Neurologic: Denies: headache Psychiatric: Denies: depression Skin: Denies: rash Hematologic: Denies: bleeding Musculoskeletal: Denies: pain Allergies: Coded Allergies: ERYTHROMYCIN BASE (Verified Allergy, Intermediate, rash, 01/22/18) PENICILLINS (Verified Allergy, Intermediate, rash, hi9ves, 01/22/18) Objective Last 24 Hour Vital Signs Date Time Temp Pulse Resp B/P (MAP) Pulse Ox O2 Delivery O2 Flow Rate FiO2 10/30/19 16:00 98.5 85 16 111/76 (88) 100 10/30/19 12:00 98.7 82 16 95/64 (74) 100 8/6/20 09:00 Room Air 10/30/19 09:00 84 108/72 10/30/19 08:00 98.1 84 16 108/72 (84) 100 10/30/19 04:00 98.3 78 18 104/67 (79) 100 10/29/19 23:58 98.6 87 18 98/63 (75) 99 10/29/19 21:00 Room Air 10/29/19 20:00 98.1 81 18 126/78 (94) 100 Height (Feet): 5 Height (Inches): 4.00 Weight (Pounds): 128 General Appearance: no acute distress HEENT: normocephalic, atraumatic, anicteric, mucous membranes moist, thrush - less Respiratory/Chest: lungs clear, normal breath sounds, no respiratory distress, no accessory muscle use Cardiovascular: normal rate, regular rhythm, no gallop/murmur, no JVD Abdomen: normal bowel sounds, soft, non tender, no organomegaly, non distended Genitourinary: other - no cardenas Extremities: no cyanosis Skin: no rash Neurologic/Psychiatric: reel repairer 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 Complete 10/24/19 00:00 Urine,Clean Catch Urine Culture - Final NO GROWTH AFTER 48 HOURS Complete Laboratory Tests Test 10/29/19 23:07 10/30/19 05:14 10/30/19 05:15 10/30/19 11:55 POC Whole Blood Glucose 104 MG/DL (74-106) 104 MG/DL (74-106) 101 MG/DL (74-106) White Blood Count 6.5 K/UL (4.8-10.8) Red Blood Count 4.12 M/UL (4.20-5.40) L Hemoglobin 13.5 G/DL (12.0-16.0) Hematocrit 40.5 % (37.0-47.0) Mean Corpuscular Volume 98 FL (80-99) Mean Corpuscular Hemoglobin 32.7 PG (27.0-31.0) H Mean Corpuscular Hemoglobin Concent 33.3 G/DL (32.0-36.0) Red Cell Distribution Width 11.0 % (11.6-14.8) L Platelet Count 238 K/UL (150-450) Mean Platelet Volume 5.3 FL (6.5-10.1) L Neutrophils (%) (Auto) 65.6 % (45.0-75.0) Lymphocytes (%) (Auto) 23.3 % (20.0-45.0) Monocytes (%) (Auto) 6.8 % (1.0-10.0) Eosinophils (%) (Auto) 3.3 % (0.0-3.0) H Basophils (%) (Auto) 1.1 % (0.0-2.0) Sodium Level 136 MMOL/L (136-145) Potassium Level 4.5 MMOL/L (3.5-5.1) Chloride Level 102 MMOL/L (98-107) Carbon Dioxide Level 29 MMOL/L (21-32) Anion Gap 5 mmol/L (5-15) Blood Urea Nitrogen 15 mg/dL (7-18) Creatinine 0.8 MG/DL (0.55-1.30) Estimat Glomerular Filtration Rate > 60 mL/min (>60) Glucose Level 93 MG/DL (74-106) Calcium Level 9.1 MG/DL (8.5-10.1) Phosphorus Level 3.7 MG/DL (2.5-4.9) Magnesium Level 1.8 MG/DL (1.8-2.4) Total Bilirubin 0.1 MG/DL (0.2-1.0) L Aspartate Amino Transf (AST/SGOT) 21 U/L (15-37) Alanine Aminotransferase (ALT/SGPT) 74 U/L (12-78) Alkaline Phosphatase 133 U/L (46-116) H Total Protein 7.0 G/DL (6.4-8.2) Albumin 3.5 G/DL (3.4-5.0) Globulin 3.5 g/dL Albumin/Globulin Ratio 1.0 (1.0-2.7) Test 10/30/19 18:08 POC Whole Blood Glucose 84 MG/DL (74-106) Current Medications Medications (Trade) Dose Ordered Sig/Shannan Route PRN Reason Start Time Stop Time Status Last Admin Dose Admin Acetaminophen (Tylenol) 650 mg Q4H PRN ORAL Mild Pain, T over 100.2 10/23/19 14:00 11/22/19 13:59 Acetaminophen/ Hydrocodone Bitart ([place] 5/325) 1 tab Q4H PRN ORAL For Pain 10/28/19 08:45 11/04/19 08:44 10/30/19 16:35 Ascorbic Acid (Vitamin C) 500 mg NEEDED PRN ORAL Constipation 10/29/19 08:45 11/28/19 08:44 10/29/19 20:38 Chlorhexidine Gluconate (Lena-Hex 2%) 1 applic DAILY@2000 TOPIC 10/20/19 20:00 01/18/20 19:59 10/29/19 20:12 Dextrose 1,000 ml @ 0 mls/hr Q24H PRN IV PN interrupted or unavailable 10/22/19 07:15 10/30/19 19:59 Dextrose (Dextrose 50%) 25 ml Q30M PRN IV Hypoglycemia 10/22/19 07:15 01/20/20 07:14 Dextrose (Dextrose 50%) 50 ml Q30M PRN IV Hypoglycemia 10/22/19 07:15 01/20/20 07:14 Fat Emulsion Intravenous 216 ml/Amino Acids/ Electrolytes/ Dextrose 1,656 ml @ 69 mls/hr Q24H IV 10/22/19 20:00 01/20/20 19:59 10/29/19 20:14 Fluoxetine HCl (PROzac) 40 mg DAILY ORAL 10/21/19 09:00 11/20/19 08:59 10/30/19 10:30 Insulin Aspart (NovoLOG) Q6HR SUBQ 10/23/19 00:00 01/21/20 00:00 10/23/19 23:46 Ketorolac Tromethamine (Toradol 30mg) 15 mg Q6H PRN IV breakthrough pain 10/26/19 09:45 10/31/19 09:44 Lorazepam (Ativan) 1 mg Q4H PRN SL Muscle Spasm 10/29/19 10:00 11/05/19 09:59 10/30/19 05:22 Metoprolol Succinate (Toprol XL) 50 mg DAILY ORAL 10/21/19 09:00 01/19/20 08:59 10/29/19 08:33 Miconazole Nitrate (Monistat) 200 mg BEDTIME VAGIN 10/25/19 21:00 01/23/20 20:59 Nystatin (Nystatin) 5 ml QID ORAL 10/27/19 13:00 11/01/19 09:14 10/30/19 18:07 Ondansetron HCl (Zofran) 4 mg Q4H PRN IVP Nausea & Vomiting 10/23/19 14:00 11/22/19 13:59 10/25/19 08:04 Phytonadione (Vitamin K) 10 mg ONCE A WEEK SUBQ 10/22/19 07:15 10/30/19 19:59 10/29/19 06:58 Prochlorperazine (Compazine) 10 mg Q6H PRN IVP Nausea & Vomiting 10/25/19 09:15 11/24/19 09:14 10/26/19 17:33 Zolpidem Tartrate (Ambien) 10 mg HSPRN PRN ORAL Insomnia 10/25/19 09:00 11/01/19 08:59 10/29/19 20:12 Stu Peralta MD Oct 30, 2019 19:43
[2019-10-30] MEDS: Miconazole 200mg Supp VAGIN SCH (20:11)
[2019-10-30] MEDS: Dyna-Hex 2% Top Sol 2oz TOPIC SCH (20:22)
[2019-10-30] MEDS: Zolpidem 5mg tab ORAL PRN (20:40)
[2019-10-31] MEDS: HYDROcodone/Acetamin 5/325 tab ORAL PRN ×4 (03:37→20:01)
[2019-10-31 04:00] VITALS: BP 127/78
[2019-10-31 06:16] LABS: BASOPHILS % (AUTO) 1.6 % (0.0-2.0); EOSINOPHILS % (AUTO) 2.3 % (0.0-3.0); HEMATOCRIT 39.1 % (37.0-47.0); HEMOGLOBIN 12.7 G/DL (12.0-16.0); LYMPHOCYTES % (AUTO) 20.3 % (20.0-45.0); MEAN CORPUSCULAR VOLUME 99 FL (80-99); MONOCYTES % (AUTO) 6.8 % (1.0-10.0); NEUTROPHILS % (AUTO) 69.1 % (45.0-75.0); PLATELET COUNT 233 K/UL (150-450); RED BLOOD COUNT 3.94 M/UL (4.20-5.40); RED CELL DISTRIBUTION WIDTH 11.7 % (11.6-14.8); WHITE BLOOD COUNT 6.3 K/UL (4.8-10.8)
[2019-10-31 06:43] LABS: ALANINE AMINOTRANSFERASE 66 U/L (12-78); ALBUMIN 3.4 G/DL (3.4-5.0); ALKALINE PHOSPHATASE 111 U/L (46-116); ANION GAP 5 mmol/L (5-15); ASPARTATE AMINO TRANSFERASE 25 U/L (15-37); BILIRUBIN,TOTAL 0.2 MG/DL (0.2-1.0); BLOOD UREA NITROGEN 17 mg/dL (7-18); CARBON DIOXIDE 29 MMOL/L (21-32); CHLORIDE 103 MMOL/L (98-107); CREATININE 0.9 MG/DL (0.55-1.30); PHOSPHORUS 3.2 MG/DL (2.5-4.9); POTASSIUM 4.1 MMOL/L (3.5-5.1); SODIUM 137 MMOL/L (136-145)
[2019-10-31 08:00] VITALS: BP 138/79
[2019-10-31] MEDS: Nystatin Susp 500,000 units/5ml ORAL SCH ×4 (08:53→20:02)
[2019-10-31] MEDS: Metoprolol Succinate XL 50mg tab ORAL SCH (08:54)
[2019-10-31] MEDS ORDERED: Zolpidem 5mg tab ORAL PRN ×2 (09:00)
[2019-10-31 12:00] VITALS: BP 136/89
--- NOTE | 2019-10-31 14:06 | General Progress Note ---
Progress Note Progress Note AVSS Doing well with BCIR diet off TPN Abdomen soft, rivera removed and steristrips applied BCIR ileo catheter sutures cut Urine 1450 BCIR ileo 1265 Labs all stable/satisfactory except Mg 1.5 Imp: Doing well Plan: Maintain indwelling Ramos Pouch catheter to continuous drainage to leg or gravity bag anticipate discharge in AM with catheter in place additional 5-7 days before starting self-intubations Rx [place] 5/325 #40 Full instruction/limitations/supplies discussed/provided F/U Mg level in AM - will then d/c PICC prior to discharge Brady Martinez MD Oct 31, 2019 14:06
[2019-10-31] MEDS ORDERED: NORCO 5-325 TA1 EAC1 ORAL (14:17)
[2019-10-31 16:00] VITALS: BP 106/65
[2019-10-31] MEDS: Dyna-Hex 2% Top Sol 2oz TOPIC SCH (19:58)
[2019-10-31 20:00] VITALS: BP 123/82
[2019-10-31] MEDS: Miconazole 200mg Supp VAGIN SCH (20:33)
[2019-11-01] VITALS: BP 107/72
[2019-11-01] MEDS: HYDROcodone/Acetamin 5/325 tab ORAL PRN ×2 (03:03→08:18)
[2019-11-01 04:00] VITALS: BP_SYST 103; BP_SYST 106; BP_DIAS 62
[2019-11-01 08:00] VITALS: BP 118/75
[2019-11-01 08:15] VITALS: BP 118/75
[2019-11-01] MEDS: Nystatin Susp 500,000 units/5ml ORAL SCH (08:15)
[2019-11-01] MEDS: Metoprolol Succinate XL 50mg tab ORAL SCH (08:15)
--- NOTE | 2019-11-01 09:21 | General Progress Note ---
Progress Note Progress Note AVSS Doing well tolerating BCIR diet Abdomen soft, nicely healed incision I&O satisf Mg 2.0 - PICC removed New 28Fr Terry placed into Ramos pouch - to maintain indwelling catheter until 03/04 then start q3h self-intubations F/U 11/04 Full supplies,instructions,limitations provided/discussed Brady Martinez MD Nov 01, 2019 09:20
[2019-11-01] MEDS ORDERED: NS Irrig 1000ml ONE (10:00)
--- NOTE | 2019-11-03 15:46 | Discharge Summary ---
Discharge Summary Hospital Course Date of Admission Oct 20, 2019 at 11:38 Date of Discharge Nov 01, 2019 at 10:01 Admitting Diagnosis Ramos Pouch Malfunction Reason for Hospitalization: elective surgery HPI Joana Harris is a 38 year old female who was admitted on Oct 20, 2019 at 11:38 for Ramos Pouch Malfunctioning. Patient was admitted for elective surgery. 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 She recently presented but was COVID-19 positive and since then has tested negative twice including in the emergency room today. The patient has had difficulty reducing the prolapse of the continent ileostomy valve and difficulty inserting her intubation catheter to evacuate stool and gas from her internal pouch. [place] problem definitively taken care of. She has a past history of ulcerative colitis and has undergone multiple abdominal operations including ileoanal J-pouch, which failed and then Ramos continent ileostomy in December 2017 with revision of the access segment on May 06, 2019. She had been doing well intubating her pouch 4 to 5 times per day, but in August noticed progressive protrusion of the valve at least 3 centimeters above the level of the skin. Consultations ID specialist - Dr. Peralta Procedures s/p 10/21/[address] Michelle Ramos continent ileostomy pouch endoscopy s/p 10/[address] Martinez Laparotomy with revision of Ramos continent ileostomy pouch valve prolapse. Hospital Course patient admitted PICC line inserted IV hydration instituted indwelling catheter was placed into Ramos continent ileostomy pouch through the stoma and connected to continuous drainage patient reported history of asymptomatic COVID-19 infection, which resolved retesting was done upon admission and was negative. ID specialist followed patient subsequently undergone Ramos pouch endoscopy , which revealed partially reduced valve prolapse mucosa was pink and pouch mucosa was normal laboratory work-up revealed low normal iron; B12 and folic acid stable patient started on clear liquid diet received 1 dose of Venofer continuous drainage of Ramos pouch maintained patient on 10/21 received bowel preparation albumin 3.4, patient started on TPN magnesium was replaced due to low magnesium level of 1.6 patient started preoperatively on Levaquin and Flagyl Heparin x1 subcutaneously was given full discussion regarding surgery indication, alternatives, option of valve revision versus new valve and risks were discussed with patient , all the questions were answered patient consented to surgery patient subsequently undergone on 10/22 laparotomy with revision of Ramos continent ileostomy pouch valve prolapse postoperatively patient was kept n.p.o. pain management was addressed with [employer] patient was continued on IVF and TPN antibiotics continued Terry catheter was continued due to pelvic dissection ambulation twice a day was encouraged potassium and phosphorus were replaced labs and intake and output were closely monitored antiemetic provided as needed patient noted to have thrush and vaginal yeast infection , patient received a dose of Diflucan abdomen remained distended, but soft n.p.o. status continued urine culture revealed only 20-30 K of enterococci, considered not significant follow-up urine culture was negative. further magnesium and K phosphate replaced basal infusion of [employer] was discontinued additional antiemetic was added since patient complained of nausea despite Zofran ileus was gradually resolving on 10/26 patient started on clear liquid diet Flagyl was discontinued Ramos pouch catheter was maintained to drainage additional magnesium was replaced on 10/27 patient started on full liquid diet and able to tolerate it IV fluids were discontinued , but TPN continued further magnesium was infused antibiotic and Terry catheter was discontinued [employer] discontinued patient started on [place] on as-needed basis on 10/28 patient started on low residue BCIR diet ; patient was able to tolerate it TPN continued for additional 24 hours additional magnesium still provided albumin was improving TPN was tapered and discontinued on 10/29 continuous drainage of Ramos pouch maintained labs were closely monitored recommended additional 5 -7days to keep catheter in place prior to starting self intubation prescription for Independence provided full instructions/limitation/supplies discussed/provided PICC line was discontinued prior to discharge new 28-gauge Terry was placed into Ramos pouch to maintain indwelling catheter until until 11/04 and then start self-intubation every 3 hours patient to follow-up in the office 11/04 FINAL DIAGNOSES 1. Malfunctioning Ramos continent ileostomy with prolapse of the nipple valve. 2. History of ulcerative colitis. 3. STATUS POST MULTIPLE ABDOMINAL OPERATIONS: 3.1. Total colectomy with ileoanal J-pouch and diverting ileostomy in January 2009. 3.2. Resection of failed J-pouch with abdominoperineal proctectomy and April ileostomy December 2009. 3.3. Open cholecystectomy January 2017. 3.4. Ramos continent ileostomy December 2017. 3.5. Laparotomy with revision of Ramos continent ileostomy stoma and redundant access segment May 06, 2019. 4.s/p Ramos continent ileostomy pouch endoscopy with finding of Ramos valve prolapse 5. s/p Laparotomy with revision of Ramos continent ileostomy pouch valve prolapse. 6. Ileus -resolved 7. Thrush-resolvec Discharge Medications Continued Medications: Fluoxetine Hcl* (Prozac*) 20 Mg Capsule 30 MG ORAL DAILY, CAP (This prescription has been renewed) Hydrocodone Bit/Acetaminophen 5-325* ([place] 5-325 Tablet*) 1 Each Tablet 1 TAB ORAL Q4H PRN for For Pain, #40 TAB (This prescription has been renewed) Metoprolol Succinate* (Metoprolol Succinate*) 25 Mg Tab.er.24h 25 MG ORAL DAILY, TAB (This prescription has been renewed) Discharge Condition Upon Discharge: stable Discharge Vital Signs Last Vital Signs Date Time Temp Pulse Resp B/P (MAP) Pulse Ox O2 Delivery O2 Flow Rate FiO2 11/01/19 09:00 Room Air 11/01/19 08:15 71 118/75 11/01/19 08:00 98.2 17 97 10/25/19 07:00 21 Discharge Disposition Patient was discharged home Discharge Instructions Discharge Instructions Special Instructions I have been assigned to complete a D/C Summary on this account. I was not involved in the patient management Odalys Villegas NP Nov 03, 2019 15:46
== END 2019-11-01 10:01 | disposition home or self-care (01) | DRG 330 ==
LOC: EMR 10:15 → 3E 11:38 → EDBEDREQ 11:46
PROC: 02HV33Z Insertion of Infusion Device into Superior Vena Cava, Percutaneous Approach (ICD-10-PCS; principal; 2019-10-20)
PROC: B518ZZA Fluoroscopy of Superior Vena Cava, Guidance (ICD-10-PCS; principal; 2019-10-20)
PROC: 0DJD8ZZ Inspection of Lower Intestinal Tract, Via Natural or Artificial Opening Endoscopic (ICD-10-PCS; 2019-10-21)
PROC: 0DSB0ZZ Reposition Ileum, Open Approach (ICD-10-PCS; 2019-10-23)
PROC: 0DQB0ZZ Repair Ileum, Open Approach (ICD-10-PCS; 2019-10-23)
DX: K94.13 Enterostomy malfunction (principal); K56.7 Ileus, unspecified; B37.0 Candidal stomatitis; Z86.19 Personal history of other infectious and parasitic diseases; Z88.0 Allergy status to penicillin; N31.9 Neuromuscular dysfunction of bladder, unspecified; I10 Essential (primary) hypertension; B37.3 Candidiasis of vulva and vagina
CPT/HCPCS: 36415; 36569; 76937; 80053; 81003; 82607; 82728; 82746; 82962; 83540; 83550; 83735; 84100; 85007; 85025; 85610; 85730; 86850; 86900; 86901; 87081; 87086; 87181; 93005; 94003; 94150; 99285; J1815; J2370; J2405; J2710; J2765; U0002